=== PATIENT | male | born 1960 | race Hispanic/Latino ===

== ENCOUNTER 2018-10-01 08:11 | Inpatient (IN) | payer BC, OTHER ==
[~2018-10-01] VITALS: Ht 193 cm; Wt 95.3 kg
[~2018-10-01 08:11] MED LIST: ACTOS15 MG PO
--- OUTSIDE RECORDS SUMMARY | 2018-10-01 08:13 | XMS REPORT | Continuity of Care Document ---
Author Author [facility] Interface Address Unknown Phone Unavailable Problems Problem Status Onset Date Classification Date Reported Comments Source Acute upper respiratory infection 08/14/2016 Diagnosis 08/14/2016 [facility] Streptococcal sore throat 08/14/2016 Diagnosis 08/14/2016 [facility] Streptococcal Sore Throat Problem 08/14/2016 [facility] Acute Upper Respiratory Infection Problem 08/14/2016 [facility] Medications Medication Details Route Status Patient Instructions Ordering Provider Order Date Source Amoxicillin 875 MG Oral Tablet amoxicillin 875 mg tablet Take 1 tablet twice a day by oral route with meals for 10 days. Active [facility] Fluticasone propionate 0.05 MG/ACTUAT Metered Dose Nasal [place] fluticasone 50 mcg/actuation nasal spray,suspension Inhale 2 sprays to each nostrils once a day. Active [facility] benzonatate 100 MG Oral Capsule [Tessalon Perles] Tessalon Perles 100 mg capsule Take 1 capsule 3 times a day by oral route as needed for cough. Active [facility] Allergies, Adverse Reactions, Alerts Substance Category Reaction Severity Reaction type Status Date Reported Comments Source Immunizations Immunization Date Given Site Status Last Updated Comments Source influenza, seasonal, injectable 06/17/2016 completed [facility] Results Order Name Results Value Reference Range Date Interpretation Comments Source Influenza A negative 08/14/2016 [facility] Influenza B negative 08/14/2016 [facility] RESULT positive 08/14/2016 [facility] SWAB LOCATION Left and Right tonsillar pillars 08/14/2016 [facility] Vital Signs Vital Sign Value Date Comments Source Diastolic (mm Hg) 82 08/14/2016 [facility] Height 74 08/14/2016 [facility] Systolic (mm Hg) 118 08/14/2016 [facility] Weight 210 08/14/2016 [facility] Encounters Location Location Details Encounter Type Encounter Number Reason For Visit Attending Provider ADM Date DC Date Status Source [place] - [facility] - [id number] Ramos: [address] [place] [address], Ph. [id number] Asia Bernard 08/14/2016 [facility] [place] [facility] [id number] Asiasonya Wagner, [employer]: [address] [facility], [place] [address], Ph. [id number] Asia Wagner 08/14/2016 [facility] Procedures Procedure Code Date Perfomer Comments Source
--- OUTSIDE RECORDS SUMMARY | 2018-10-01 08:14 | XMS REPORT | Encounter Summary ---
Author Organization Unknown Address [address] [place] [address] Phone [phone] Reason for Visit Medical Complaint Instructions 1. Acute upper respiratory infection rapid flu (A+B) Tessalon Perles 100 mg capsule fluticasone 50 mcg/actuation nasal spray,suspension rapid strep group A, throat upper respiratory infection (cold): care instructions 2. Streptococcal sore throat amoxicillin 875 mg tablet strep throat: care instructions Discussion Note: None recorded. Plan of Care Patient Instructions Please drink plenty of fluids, rest, good hand washing, cover your mouth while coughing and sneezing. Try warm salt water gargles, throat lozanges, soups ortea with honey and/or lemon juice to soothe the throat.Take tylenol every 6 hours as needed for fever and aches. Change out yourtoothbrush tomorrow or when you start to feel better. Please read all the side effects of the medications, if you develop any side effects immediately stop the medication and please contact your PCP/UC/ER or [facility] or call 911. Follow up with PCP/UC/ER or seek care if symptomsget worseor no improvement in 3 to 4 days. Patient verbalizes understanding and agrees to the plan. Reminders Provider Appointments None recorded. Lab Rapid Flu (A+B) 08/14/2016 [facility] Rapid Strep Group a, Throat 08/14/2016 [facility] Referral None recorded. Procedures None recorded. Surgeries None recorded. Imaging None recorded. Medications Name Start Date amoxicillin 875 mg tablet Take 1 tablet twice a day by oral route with meals for 10 days. fluticasone 50 mcg/actuation nasal spray,suspension Inhale 2 sprays to each nostrils once a day. Tessalon Perles 100 mg capsule Take 1 capsule 3 times a day by oral route as needed for cough. Medications Administered None recorded. Vitals Height Weight BMI Blood Pressure 6 ft 2 in 210 lbs 27 118/82 Lab Results Date Name Result Description Value Range Status Rapid Flu (A+B) Influenza a negative Influenza B negative Rapid Strep Group a, Throat Result positive Swab Location Left and Right tonsillar pillars Allergies Name Reaction Severity Onset NKDA Problems Name Status Onset Date Source Streptococcal Sore Throat Active Encounter Acute Upper Respiratory Infection Active Encounter Procedures None recorded. Vaccine List Vaccine Type influenza, seasonal, injectable 06/16/2016 Social History Smoking Status Never Smoker Past Encounters 08/14/2016 Acute Upper Respiratory Infection; Streptococcal Sore Throat Asia Wagner, [facility]: [address] [place] [address], Ph. History of Present Illness [id number]-Hqttyhvvsa-Jnldnch Reported By: Patient HPI: Location: head/sinuses. Quality: sore throat, nasal/sinus congestion, dry cough. Duration: 3days. Severity: moderate. Onset/Timing: sudden. Context: no sick contacts, no foreign travel, non-smoker. Modifying factors: OTC medication. Associated Symptoms: no sputum production, no shortness of breath, no wheezing, no change in number of pillows needed to sleep at night, no sweats, no significant weight gain, no significant weight loss, no morning cough, no sore throat, no vomiting, no diarrhea, no rash, no nausea Notes: Pt also reports fever and body aches. Review of Systems Basic Reported By: Patient Constitutional: Constitutional: fever Eyes: Eyes: no eye complaints Zhfv-Mffa-Wghkd-Throat: Ears: no ear complaints. Nose: nose/sinus problems. Mouth/Throat: no bleeding gums, no mouth complaints, no teeth problems, sore throat Cardiovascular: Cardiovascular: no chest pain, no shortness of breath, no known heart murmur Respiratory: Respiratory: no wheezing, no shortness of breath, cough Gastrointestinal: Gastrointestinal: no abdominal pain, no vomiting / diarrhea Genitourinary: Genitourinary: no urinary complaints, no discharge Musculoskeletal: Musculoskeletal: no muscle weakness, no arthralgias/joint pain, no back pain, muscle aches Skin: Skin: no abnormal / changing mole, no jaundice, no rashes Neurologic: Neurologic: no loss of consciousness, no weakness, no numbness, no seizures, no dizziness, headache Physical Exam Adult Basic, Adult Male Complete Constitutional: General Appearance: healthy-appearing, well-nourished, well-developed. Level of Distress: NAD. Ambulation: ambulating normally Psychiatric: Mental Status: active and alert. Orientation: to time, to place, to person Eyes: Lids and Conjunctivae: non-injected, no discharge, no pallor. Pupils: PERRLA. EOM: EOMI. Lens: clear. Sclerae: non-icteric Khv-Yujp-Cnrqq-Throat: Ears: no lesions on external ear, no outer ear tenderness, EACs clear, TMs clear, TM mobility normal. Hearing: no hearing loss. Nose: no lesions on external nose, nares patent, no septal deviation, nasal passages clear, no sinus tenderness, nasal discharge--rhinorrhea, post nasal drip; RED SWOLLEN NASAL MUCOSA. Lips, Teeth, and Gums: no mouth or lip ulcers, no bleeding gums, normal dentition. Oropharynx: moist mucous membranes, erythema, exudates, tonsils enlarged 1+ Neck: Neck: supple. Lymph Nodes: no cervical LAD Lungs: Respiratory effort: no dyspnea, no tachypnea. Auscultation: breath sounds normal, good air movement Cardiovascular: Heart Auscultation: RRR, no murmurs Neurologic: Gait and Station: normal gait Skin: Inspection and palpation: no rash
--- OUTSIDE RECORDS SUMMARY | 2018-10-01 08:14 | XMS REPORT | Encounter Summary ---
Author Organization Unknown Address [address] [place] [address] Phone [phone] Reason for Visit Medical Complaint Instructions 1. [...] negative Rapid Strep Group a, Throat Result negative Swab Location Left and Right tonsillar pillars Allergies Name Reaction Severity Onset NKDA Problems Name Status Onset Date Source Streptococcal Sore Throat Active Encounter Acute Upper Respiratory Infection Active Encounter Procedures None recorded. Vaccine List Vaccine Type influenza, seasonal, injectable 06/16/2016 Social History Smoking Status Never Smoker Past Encounters 08/14/2016 Acute Upper Respiratory Infection; Streptococcal Sore Throat Asia Wagner, [facility]: [address] [place] [address], Ph. History of Present Illness Bcxtp-Xnrkfuxepk-Odjudvf Reported By: Patient HPI: Location: head/sinuses. Quality: [...] Constitutional: fever Eyes: Eyes: no eye complaints Wgsn-Igqg-Lltgn-Throat: Ears: no ear complaints. Nose: nose/sinus problems. [...] PERRLA. EOM: EOMI. Lens: clear. Sclerae: non-icteric Lnu-Yyem-Vrfxl-Throat: Ears: no lesions on external ear, no [...]
[2018-10-01 08:49] LABS: EOSINOPHILS # (AUTO) 0.1 (0.0-0.4); HEMATOCRIT 39.7 % (38.2-49.6); HEMOGLOBIN 12.6 g/dL (14.0-18.0); LYMPHOCYTES # (AUTO) 119.7 (1.0-3.2); LYMPHOCYTES % 95.2 % (18.0-39.1); MEAN CORPUSCULAR HEMOGLOBIN 32.7 pg (28-32); MEAN CORPUSCULAR HGB CONC 31.7 g/dL (31-35); MEAN CORPUSCULAR VOLUME 103.1 fL (81-99); MONOCYTES # (AUTO) 3.5 (0.2-0.8); MONOCYTES % 2.8 % (4.4-11.3); NEUTROPHILS # (AUTO) 2.3 (2.1-6.9); NEUTROPHILS % 1.9 % (38.7-80.0); PLATELET COUNT 200 x10e3/uL (140-360); RED BLOOD COUNT 3.85 x10e6/uL (4.3-5.7); RED CELL DISTRIBUTION WIDTH 14.8 % (11.7-14.4)
[2018-10-01 08:58] LABS: INR 0.91; PROTHROMBIN TIME 13.1 seconds (11.9-14.5)
[2018-10-01 08:59] LABS: PARTIAL THROMBOPLASTIN TIME 27.5 seconds (23.8-35.5)
--- NOTE | 2018-10-01 09:04 | Diagnostic Imaging Report ---
EXAMINATION: CHEST 2 VIEWS INDICATION: ^sob, cp ^[id number] ^[id number] ^N COMPARISON: Chest radiograph 04/04/2014 FINDINGS: PA and lateral views TUBES and LINES: None. LUNGS: Lungs are well inflated. Lungs are clear. There is no evidence of pneumonia or pulmonary edema. PLEURA: No pleural effusion or pneumothorax. HEART AND MEDIASTINUM: Mild enlargement of the cardiac silhouette. The mediastinum is otherwise unremarkable. BONES AND SOFT TISSUES: Intact median sternotomy wires. Mild multilevel degenerative changes of the thoracic spine. Soft tissues are unremarkable. UPPER ABDOMEN: No free air under the diaphragm. IMPRESSION: Mild cardiomegaly without pulmonary decompensation. Signed by: Dr. Concepción Yates M.D. on 10/01/2018 9:01 AM
[2018-10-01 09:06] LABS: ALANINE AMINOTRANSFERASE 26 IU/L (0-55); ALBUMIN 3.7 g/dL (3.5-5.0); ALKALINE PHOSPHATASE 66 IU/L (40-150); ANION GAP 12.1 mmol/L (8-16); BLOOD UREA NITROGEN 18 mg/dL (7-26); BUN/CREATININE RATIO 23 (6-25); CALCIUM 9.3 mg/dL (8.4-10.2); CARBON DIOXIDE 27 mmol/L (22-29); CHLORIDE 105 mmol/L (98-107); CREATINE KINASE 197 IU/L (30-200); CREATININE, SERUM 0.77 mg/dL (0.72-1.25); EST GLOMERULAR FILTRATION RATE > 60 ML/MIN (60-); GLUCOSE 199 mg/dL (74-118); POTASSIUM 4.1 mmol/L (3.5-5.1); SODIUM 140 mmol/L (136-145)
[2018-10-01 09:22] LABS: BLAST CELLS % MANUAL 86; LYMPHOCYTES % (MANUAL) 9 % (19-48); NEUTROPHILS % (MANUAL) 5 % (40-74)
[2018-10-01 09:23] LABS: PLATELET ESTIMATE ADEQUATE; PLATELET MORPHOLOGY COMMENT FEW LARGE; RBC MORPHOLOGY COMMENT NORMAL
--- NOTE | 2018-10-01 11:15 | NUR ---
REPORT AND PATIENT CARE ENDORSED TO AMBROSE BROOKE
[2018-10-01] MEDS ORDERED: ONDANSETRON HCL INJ 2MG/ML 2ML 2 MG/ML VIAL IV PRN (11:45)
[2018-10-01] MEDS ORDERED: MORPHINE SULFATE INJ 4 MG/ML INJ 1ML IV PRN (11:45)
[2018-10-01] MEDS ORDERED: NITROGLYCERIN 0.4 MG SUBL SL PRN (11:45)
--- OUTSIDE RECORDS SUMMARY | 2018-10-01 11:54 | XMS REPORT ---
Author Author [facility] Address Unknown Phone Unavailable Care Team Providers Care Top Flavor Attendant Name Role Phone Bonita YOUNG Unavailable Unavailable Problems This patient has no known problems. Allergies, Adverse Reactions, Alerts This patient has no known allergies or adverse reactions. Medications This patient has no known medications. Results Test Description Test Time Test Comments Text Results Atomic Results Result Comments CHEST 2 VIEWS 2018-10-01 09:00:00 [facility] [address] [address] Patient Name: GASPER UMANA MR #: [id number] : 1960 Age/Sex: 58/M Req #: [id number] Adm Physician: Ordered by: PRAKASH YOUNG MD Report #: [id number] Location: ER Room/Bed: Procedure: [id number] DX/CHEST 2 VIEWS Exam Date: 10/01/18 Exam Time: 0844 REPORT STATUS: Signed EXAMINATION: CHEST 2 VIEWS INDICATION: sob, cp [id number] N COMPARISON: Chest radiograph 04/04/2014 FINDINGS: PA and lateral views TUBES and LINES: None. LUNGS: Lungs are well inflated. Lungs are clear. There is no evidence of pneumonia or pulmonary edema. PLEURA: No pleural effusion or pneumothorax. HEART AND MEDIASTINUM: Mild enlargement of the cardiac silhouette. The mediastinum is otherwise unremarkable. BONES AND SOFT TISSUES: Intact median sternotomy wires. Mild multilevel degenerative changes of the thoracic spine. Soft tissues are unremarkable. UPPER ABDOMEN: No free air under the diaphragm. IMPRESSION: Mild cardiomegaly without pulmonary decompensation. Signed by: Dr. Jeannie Hoyt M.D. on 10/01/2018 9:01 AM Dictated By: JEANNIE HOYT MD 0 Transcribed By: NICOLE on 10/01/18900 COPY TO: PRAKASH YOUNG MD
[2018-10-01] MEDS: SODIUM CHLORIDE 0.9% 1000ML 1,000 ML IV SCH ×2 (12:00→21:21)
[2018-10-01] MEDS: FAMOTIDINE 20 MG TAB PO SCH (12:01)
[2018-10-01] MEDS: NITROGLYCERIN 2% OINT 1 GM PKT TOP SCH ×2 (12:01→18:00)
--- NOTE | 2018-10-01 12:02 | NUR ---
DR. YOUNG IN ROOM TO SPEAK WITH PT/LONNIE
[2018-10-01 17:40] LABS: CREATINE KINASE MB 3.5 ng/mL (0-5.0)
--- NOTE | 2018-10-01 18:41 | NUR ---
DR. Brian SOLOMON, WHO IS COVERING FOR DR. GRAMAJO; WAS CALLED TO REPORT LAB RESULTS RE 2ND ELEVATED TROPONIN--NO NEW ORDERS REC'D
--- NOTE | 2018-10-01 19:45 | NUR ---
PLACED AIR MATTRESS ON ER STRETCHER FOR PATIENT AND RECLINER FOR HIS BROUGHT TO ROOM
--- NOTE | 2018-10-01 21:39 | NUR ---
PT TX'D TO A HOSPITAL BED AT THIS TIME.
[2018-10-01] MEDS ORDERED: DEXTROSE 50% SYRINGE 50 ML IV PRN (22:30)
[2018-10-01] MEDS: INSULIN REGULAR, HUMAN 100 UNIT/1 ML 3ML VIAL SQ SCH (22:39)
[2018-10-02 01:18] LABS: CREATINE KINASE MB 2.4 ng/mL (0-5.0)
[2018-10-02] MEDS: FAMOTIDINE 20 MG TAB PO SCH ×3 (01:32→23:45)
[2018-10-02] MEDS: NITROGLYCERIN 2% OINT 1 GM PKT TOP SCH ×4 (01:32→19:38)
[2018-10-02] MEDS ORDERED: NOVOLOG100 UNIT/1 SQ (05:38)
[2018-10-02] MEDS ORDERED: LEVEMIR100 UNIT/1 SQ (05:38)
[2018-10-02 06:08] LABS: BASOPHILS # (AUTO) 0.1 (0.0-0.1); BASOPHILS % 0.1 % (0.0-1.0); HEMATOCRIT 35.9 % (38.2-49.6); HEMOGLOBIN 11.5 g/dL (14.0-18.0); LYMPHOCYTES # (AUTO) 98.4 (1.0-3.2); MEAN CORPUSCULAR VOLUME 102.9 fL (81-99); MONOCYTES # (AUTO) 4.1 (0.2-0.8); MONOCYTES % 3.9 % (4.4-11.3); NEUTROPHILS % 1.9 % (38.7-80.0); PLATELET COUNT 176 x10e3/uL (140-360); RED BLOOD COUNT 3.49 x10e6/uL (4.3-5.7); RED CELL DISTRIBUTION WIDTH 14.8 % (11.7-14.4)
[2018-10-02 06:26] LABS: CREATINE KINASE MB 2.1 ng/mL (0-5.0)
[2018-10-02 06:43] LABS: BLOOD UREA NITROGEN 17 mg/dL (7-26); BUN/CREATININE RATIO 24 (6-25); CALCIUM 8.3 mg/dL (8.4-10.2); CARBON DIOXIDE 25 mmol/L (22-29); CHLORIDE 108 mmol/L (98-107); CHOL/HDL RATIO 6.1 (3.9-4.7); CHOLESTEROL 189 MD/DL (0-199); CREATININE, SERUM 0.71 mg/dL (0.72-1.25); EST GLOMERULAR FILTRATION RATE > 60 ML/MIN (60-); GLUCOSE 135 mg/dL (74-118); HDL CHOLESTEROL 31 MG/DL (40-60); LDL CHOLESTEROL 134 MG/DL (60-130); SODIUM 141 mmol/L (136-145); TRIGLYCERIDES 118 MG/DL (0-149)
--- NOTE | 2018-10-02 07:15 | NUR ---
RECEIVED REPORT FROM SANG[facility] NURSE.
[2018-10-02 07:44] LABS: LYMPHOCYTES % (MANUAL) 91 % (19-48); MONOCYTES % (MANUAL) 2 % (3.4-9.0); NEUTROPHILS % (MANUAL) 5 % (40-74); RBC MORPHOLOGY COMMENT NORMAL; SMUDGE CELLS MODERATE
[2018-10-02 07:45] LABS: ANISOCYTOSIS SLIGHT; PLATELET ESTIMATE ADEQUATE; PLATELET MORPHOLOGY COMMENT NORMAL
--- NOTE | 2018-10-02 08:30 | NUR ---
BREAKFAST TRAY AT BEDSIDE. ECHOCARDIOGRAM BEING DONE AT THIS TIME.
[2018-10-02] MEDS: INSULIN LISPRO 100 UNIT/1 ML 3ML VIAL SQ SCH ×3 (08:47→16:30)
[2018-10-02] MEDS: ASPIRIN 81 MG ENTERIC COATED PO SCH (08:47)
--- NOTE | 2018-10-02 09:25 | History and Physical ---
PRIMARY CARE PHYSICIAN: Dr. Mckeon FIELD AIDE: Dr. Chung SOFTWARE MAINTENANCE ENGINEER: Dr. Bellamy CHIEF COMPLAINT: Blurred vision. HISTORY OF PRESENT ILLNESS: This is a 58-year-old man with a history of coronary artery disease with a bypass in 2013. Also, with vitreous hemorrhage diagnosed in 2017 related to his diabetes. Has continued to have poorly controlled diabetes. Not on a diabetic diet at home. Now, developing worsening vision changes with worsened blurred vision. He has chronic blurred vision and follows up with ophthalmology, Dr. Bellamy. The last time about 3 months ago. The patient does understand the importance of a diabetic diet, but has not been on it. States that he is not able to do a diabetic diet. The patient had chest discomfort about a week ago with some shortness of breath, but has since resolved. Here was found to have a troponin in the 0.5 range. He is admitted for further evaluation and management. PAST MEDICAL HISTORY: Coronary artery disease, status post coronary artery bypass grafting in 2013, diabetic foot ulcer, status post right great toe partial amputation, vitreous hemorrhage in 2017 secondary to uncontrolled diabetes, peripheral arterial disease, CLL, hyperlipidemia. PAST SURGICAL HISTORY: Partial right great toe amputation, coronary artery bypass grafting times 5 in 2013. ALLERGIES: PER ELECTRONIC MEDICAL RECORD. FAMILY/SOCIAL HISTORY: Patient is . No alcohol, illicits or cigarettes. MEDICATIONS: Per electronic medical record. REVIEW OF SYSTEMS: Denies any dizziness. Denies any fever, chills, sweats, nausea, vomiting, diarrhea, headache, chest pain, shortness of breath, back pain. PHYSICAL EXAMINATION VITAL SIGNS: Have been reviewed. GENERAL: A tired-appearing man resting in bed. HEENT: Anicteric. He has blurred vision. CARDIOVASCULAR: Normal S1 and S2. LUNGS: He has moderate breath sounds. ABDOMEN: Soft, nontender and nondistended. EXTREMITIES: He has right great toe partial amputated, well-healed. SKIN: Dry. PSYCHIATRIC: Flat affect. NEUROLOGICAL: Alert and oriented times 3. Moves all extremities. MUSCULOSKELETAL: He has a midchest wall scar. LABS: Reviewed. MEDICATIONS: Reviewed. ASSESSMENT: This is a 58-year-old man with: 1. Blurred vision secondary to vitreous hemorrhage. 2. Left-sided vitreous hemorrhage. 3. Uncontrolled diabetes mellitus: Hemoglobin A1c is 9.4. 4. Hyperlipidemia. 5. Hypertensive heart disease with cardiomegaly. 6. Coronary artery disease with history of coronary artery bypass grafting. 7. Peripheral arterial disease. 8. Chronic lymphocytic leukemia. 9. Elevated troponin. PLAN 1. I have encouraged the patient the need for strict diabetic diet. I have encouraged this with his family member at bedside. Currently, not on a diabetic diet. Will start a diabetic diet here. 2. He needs to see his contract designer SHAHBAZ, which he has agreed to. 3. Control diabetes while he is here. 4. He has elevated troponin at 0.5 range, now trending down to 0.47. Unlikely, this is acute coronary syndrome. Will defer to cardiology. Echocardiogram has been ordered. 5. Treat hyperlipidemia with high dose of statin. 6. Defer CLL management to hematology. There is no sign of infection at this time. 7. Prophylaxis. Will avoid anticoagulation in the setting of vitreous hemorrhage. Will treat with Pepcid prophylactically. 8. Disposition. Follow up cardiology recommendations. Follow up echocardiogram. The patient needs to see ophthalmology SHAHBAZ once he is discharged. Job#: [id number] EARNESTINE
[2018-10-02] MEDS: SODIUM CHLORIDE 0.9% 1000ML 1,000 ML IV SCH ×2 (10:30→17:45)
--- NOTE | 2018-10-02 12:18 | NUR ---
LUNCH TRAY AT BEDSIDE. PT REPOSITIONED FOR COMFORT. AT BEDSIDE HELPING PT WITH NEEDS WELL.
[2018-10-02] MEDS: INSULIN REGULAR, HUMAN 100 UNIT/1 ML 3ML VIAL SQ SCH (13:10)
--- NOTE | 2018-10-02 15:10 | Consultation ---
DATE OF CONSULTATION: October 02, 2018 CARDIOLOGY CONSULTATION REASON FOR CONSULTATION: Elevated troponin. HISTORY OF PRESENT ILLNESS: This is a 58-year-old man with a history of hypertension, hyperlipidemia, diabetes mellitus, peripheral arterial disease, coronary artery disease, status post coronary artery bypass graft surgery, CLL, hyperlipidemia, who presented to the emergency department with blurry vision. The patient has a history of vitreous hemorrhage related to his diabetes, and was scheduled to see his antisqueak applier today. However, over the weekend his vision became worse. 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 Denies any current chest pain, pressure, shortness of breath, or palpitations. He actually feels fine. Denies any ongoing cardiovascular symptoms. On arrival here, the patient was found to have a minimally elevated troponin. We have been asked to evaluate the patient for his ongoing cardiovascular care. REVIEW OF SYSTEMS: A 12-point review of systems was conducted and is negative otherwise than stated above in the HPI. PAST MEDICAL HISTORY: Hypertension, hyperlipidemia, diabetes mellitus, peripheral arterial disease, coronary artery disease. PAST SURGICAL HISTORY: Digit amputations, coronary artery bypass graft surgery. FAMILY HISTORY: No premature coronary artery disease or sudden cardiac . SOCIAL HISTORY: No illicit drug use, alcohol use or tobacco use. ALLERGIES: NO KNOWN DRUG ALLERGIES. MEDICATIONS: See medication reconciliation form. PHYSICAL EXAMINATION VITALS: Temperature is 97.9, heart rate is 70, respirations are 16, blood pressure is 149/82, oxygen saturation 100% on room air. GENERAL: A well-appearing, well-built man lying comfortably in bed. HEENT: Head is normocephalic and atraumatic. Eyes: Extraocular muscles are intact. Conjunctivae are clear. NECK: No JVD. No bruits. CARDIOVASCULAR: Regular rate and rhythm. No murmurs. LUNGS: Clear to auscultation. ABDOMEN: Soft, nontender and nondistended. Normoactive bowel sounds. EXTREMITIES: No clubbing, cyanosis or edema. VASCULAR: Two plus pulses. SKIN: Warm, dry and intact. NEUROLOGIC: No focal deficits noted. Cranial nerves grossly intact. PSYCHIATRIC: Normal mood and affect. LABORATORY DATA: White blood cell count is 104,000, hemoglobin is 11.5, and platelets 176,000. Creatinine is 0.7. CK-MB is 5.1, 3.5, 2.4, 2.1. Troponin I 0.562, 0.598, 0.574, 0.47. Chest x-ray shows mild cardiomegaly. No congestion. IMPRESSION 1. Abnormal cardiac biomarkers. 2. Coronary artery disease: Status post coronary artery bypass graft surgery. 3. Hypertension. 4. Hyperlipidemia. 5. Diabetes mellitus. 6. Vitreous hemorrhage. 7. Peripheral arterial disease. 8. Chronic lympholytic leukemia. RECOMMENDATIONS: The patient has no ongoing chest pain or pressure. He has trivially elevated troponin levels likely not related to acute coronary syndrome. Echocardiogram showed a left ventricular ejection fraction of 50% to 55%. Discussed treatment options with the patient and his at bedside at length. If the patient should undergo cardiac catheterization and possibly need a stent, we would need to put him on antiplatelets, which would then therefore complicate and worsen his vitreous hemorrhage. I will go ahead and schedule him for a stress test to look for any evidence of ischemia. This is also being done due to his upcoming surgery, and will likely need cardiac clearance. Otherwise, continue all current cardiovascular medications. Job#: [id number] EARNESTINE
--- NOTE | 2018-10-02 15:35 | NUR ---
PT TO [facility] FOR STRESS TEST.
[2018-10-02] MEDS ORDERED: REGADENOSON 0.4 MG/5 ML SYR IV ONE (16:09)
--- NOTE | 2018-10-02 18:15 | NUR ---
RECEIVED PATIENT FROM THE ER HE ARRIVED IN STRETCHER, ACCOMPANIED BY ER NURSE HE IS ALERT AND ORIENTEDX3, SKIN ASSESSED PATIENT HAS GENERALIZED DRYNESS AND SCALY SKIN SCATTERED SCABS. PATIENT RIGHT FOOT PARTIAL GREAT TOE AMPUTATION, HAS OLD SURGICAL MILLINE TO CHEST R/T HEART BYPASS PATIENT REPORTS SURGERY WAS IN 2013. PLACED ON TELEMETRY, BLOOD SUGAR CHECKED UPON ARRIVAL 114. DENIES PAIN, ORIENTED TO ROOM AND USE OF CALL LIGHT. BED IN LOW POSITION, BREAKS ON. AT BEDSIDE WILL CONTINUE TO MONITOR.
--- NOTE | 2018-10-02 20:33 | NUR ---
Received change of shift report from AM nurse. Walking rounds completed.
[2018-10-02] MEDS: INSULIN DETEMIR 100 UNIT/ML PEN SQ SCH (21:00)
[2018-10-02] MEDS ORDERED: NON-FORMULARY MEDICATION (Insulin Detemir (Levemir) 15 UNITS) SQ SCH (21:00)
[2018-10-02 21:45] VITALS: BP 163/79
[2018-10-03 00:21] VITALS: BP 131/70
[2018-10-03] MEDS: SODIUM CHLORIDE 0.9% 1000ML 1,000 ML IV SCH ×3 (03:41→23:45)
--- NOTE | 2018-10-03 03:55 | NUR ---
Patient resting quitly at this time. Family at bedside. Patient denies pain or discomfort at this time.
[2018-10-03 04:00] VITALS: BP 140/82
[2018-10-03] MEDS: NITROGLYCERIN 2% OINT 1 GM PKT TOP SCH ×5 (05:07→23:20)
--- NOTE | 2018-10-03 06:48 | NUR ---
IM- progress note O/N; no events REVIEW OF SYSTEMS: Denies any dizziness. Denies any fever, chills, sweats, nausea, vomiting, diarrhea, headache, chest pain, shortness of breath, back pain. PHYSICAL EXAMINATION VITAL SIGNS: Have been reviewed. GENERAL: A tired-appearing man resting in bed. HEENT: Anicteric. He has blurred vision. CARDIOVASCULAR: Normal S1 and S2. LUNGS: He has moderate breath sounds. ABDOMEN: Soft, nontender and nondistended. EXTREMITIES: He has right great toe partial amputated, well-healed. SKIN: Dry. PSYCHIATRIC: Flat affect. NEUROLOGICAL: Alert and oriented times 3. Moves all extremities. MUSCULOSKELETAL: He has a midchest wall scar. LABS: Reviewed. MEDICATIONS: Reviewed. ASSESSMENT: This is a 58-year-old man with: 1. Blurred vision secondary to vitreous hemorrhage. 2. Left-sided vitreous hemorrhage. 3. Uncontrolled diabetes mellitus: Hemoglobin A1c is 9.4. 4. Hyperlipidemia. 5. Hypertensive heart disease with cardiomegaly. 6. Coronary artery disease with history of coronary artery bypass grafting. 7. Peripheral arterial disease. 8. Chronic lymphocytic leukemia. 9. Elevated troponin. PLAN 1. I have encouraged the patient the need for strict diabetic diet. I have encouraged this with his family member at bedside. Currently, not on a diabetic diet. Will start a diabetic diet here. 2. He needs to see his green prize packer SHAHBAZ, which he has agreed to. 3. Control diabetes while he is here. 4. He has elevated troponin at 0.5 range, now trending down to 0.47. Unlikely, this is acute coronary syndrome. Will defer to cardiology. Echocardiogram has been ordered. 5. Treat hyperlipidemia with high dose of statin. 6. Defer CLL management to hematology. There is no sign of infection at this time. 7. Prophylaxis. Will avoid anticoagulation in the setting of vitreous hemorrhage. Will treat with Pepcid prophylactically. 8. Disposition. Follow up cardiology recommendations. Follow up echocardiogram. The patient needs to see ophthalmology SHAHBAZ once he is discharged. 10/03 stress test pending; LVEF normal on echo; d/c if stress negative Grant Orozco MD, PhD.
[2018-10-03] MEDS ORDERED: LIPITOR20 MG PO (06:49)
[2018-10-03] MEDS ORDERED: FAMOTIDINE20 MG PO (06:49)
[2018-10-03] MEDS: INSULIN LISPRO 100 UNIT/1 ML 3ML VIAL SQ SCH ×3 (07:17→16:30)
[2018-10-03 08:00] VITALS: BP 167/80
--- NOTE | 2018-10-03 10:00 | NUR ---
PT TAKEN FOR STRESS TEST AT THIS TIME
--- NOTE | 2018-10-03 11:00 | NUR ---
SPOKE WITH STATES HE WILL SEE PATIENT RESULTS WHEN READY AND NOTIFY THIS RN WHEN PATIENT CAN GO HOME
[2018-10-03 12:58] VITALS: BP 156/90
[2018-10-03] MEDS: ASPIRIN 81 MG ENTERIC COATED PO SCH (12:58)
[2018-10-03] MEDS: FAMOTIDINE 20 MG TAB PO SCH ×2 (12:58→23:20)
[2018-10-03 16:00] VITALS: BP 172/85
--- NOTE | 2018-10-03 18:01 | NUR ---
SPOKE WITH PT TO BE SEEN BY OPHTHALMOLOGY FOR VITREOUS HEMORRHAGE AND FOR CLEARANCE OF POSSIBLE USE OF BLOOD THINNERS. PAGED FOR CONSULT
--- NOTE | 2018-10-03 19:23 | NUR ---
Received change of shift report from AM nurse. Walking rounds completed.
--- NOTE | 2018-10-03 19:27 | NUR ---
Received change of shift report from AM nurse. Walking rounds completed.
[2018-10-03 20:00] VITALS: BP 152/95
--- NOTE | 2018-10-03 20:27 | NUR ---
Patient in bed in supine position. Denies pain at this time. IV intact right FA 18G. RA No c/o at this time. SR x2 bed lowest level.
[2018-10-03] MEDS: INSULIN DETEMIR 100 UNIT/ML PEN SQ SCH (21:00)
[2018-10-04] VITALS: BP 140/85
[2018-10-04] MEDS: NITROGLYCERIN 2% OINT 1 GM PKT TOP SCH ×3 (06:00→17:53)
--- NOTE | 2018-10-04 07:17 | NUR ---
IM- progress note O/N; no events REVIEW OF SYSTEMS: Denies any dizziness. Denies any fever, chills, sweats, nausea, vomiting, diarrhea, headache, chest pain, shortness of breath, back pain. PHYSICAL EXAMINATION VITAL SIGNS: Have been reviewed. GENERAL: A tired-appearing man resting in bed. HEENT: Anicteric. He has blurred vision. CARDIOVASCULAR: Normal S1 and S2. LUNGS: He has moderate breath sounds. ABDOMEN: Soft, nontender and nondistended. EXTREMITIES: He has right great toe partial amputated, well-healed. SKIN: Dry. PSYCHIATRIC: Flat affect. NEUROLOGICAL: Alert and oriented times 3. Moves all extremities. MUSCULOSKELETAL: He has a midchest wall scar. LABS: Reviewed. MEDICATIONS: Reviewed. ASSESSMENT: This is a 58-year-old man with: 1. Blurred vision secondary to vitreous hemorrhage. 2. Left-sided vitreous hemorrhage. 3. Uncontrolled diabetes mellitus: Hemoglobin A1c is 9.4. 4. Hyperlipidemia. 5. Hypertensive heart disease with cardiomegaly. 6. Coronary artery disease with history of coronary artery bypass grafting. 7. Peripheral arterial disease. 8. Chronic lymphocytic leukemia. 9. Elevated troponin. PLAN 1. I have encouraged the patient the need for strict diabetic diet. I have encouraged this with his family member at bedside. Currently, not on a diabetic diet. Will start a diabetic diet here. 2. He needs to see his manager pipeline SHAHBAZ, which he has agreed to. 3. Control diabetes while he is here. 4. He has elevated troponin at 0.5 range, now trending down to 0.47. Unlikely, this is acute coronary syndrome. Will defer to cardiology. Echocardiogram has been ordered. 5. Treat hyperlipidemia with high dose of statin. 6. Defer CLL management to hematology. There is no sign of infection at this time. 7. Prophylaxis. Will avoid anticoagulation in the setting of vitreous hemorrhage. Will treat with Pepcid prophylactically. 8. Disposition. Follow up cardiology recommendations. Follow up echocardiogram. The patient needs to see ophthalmology SHAHBAZ once he is discharged. 10/03 stress test pending; LVEF normal on echo; d/c if stress negative 10/04 stress indicative of disease. Ophthalmology to do pre-op to determine if antiplatelets can be utilized in setting of vitreous hemorrhage. If yes, plan is to proceed with [facility] and possible intervention. Grant Orozco MD, PhD.
[2018-10-04 08:14] VITALS: BP 148/86
[2018-10-04 08:30] VITALS: BP 148/86
--- NOTE | 2018-10-04 08:30 | NUR ---
consult called to Dr. Rosales office, spoke to Dia
[2018-10-04] MEDS: ASPIRIN 81 MG ENTERIC COATED PO SCH (08:49)
[2018-10-04] MEDS: INSULIN LISPRO 100 UNIT/1 ML 3ML VIAL SQ SCH ×3 (08:50→16:30)
[2018-10-04] MEDS: SODIUM CHLORIDE 0.9% 1000ML 1,000 ML IV SCH (09:45)
[2018-10-04] MEDS: FAMOTIDINE 20 MG TAB PO SCH ×2 (11:45→23:04)
[2018-10-04 11:55] VITALS: BP 162/88
[2018-10-04 16:25] VITALS: BP 147/86
[2018-10-04] MEDS ORDERED: MIDAZOLAM HCL 2 MG/2 ML VIAL ONE (17:07)
[2018-10-04] MEDS ORDERED: FENTANYL CITRATE/PF 100MCG/2 ML INJ ONE (17:07)
[2018-10-04] MEDS ORDERED: LIDOCAINE HCL 2% LOCAL 20 ML VIAL ONE (17:07)
[2018-10-04] MEDS ORDERED: HEPARIN SOD/SOD CHLORIDE 2,000 ML ONE (17:08)
[2018-10-04] MEDS ORDERED: IOPAMIDOL 370 MG/ML 200 ML INFUS..BTL INJ ONE ×3 (17:08→19:32)
--- NOTE | 2018-10-04 17:55 | NUR ---
patient off unit to solder making laborer
[2018-10-04] MEDS ORDERED: HYDRALAZINE HCL 20 MG/ML VIAL ONE (20:10)
[2018-10-04] MEDS ORDERED: ASPIRIN 325 MG TAB ONE (20:37)
[2018-10-04] MEDS ORDERED: TICAGRELOR 90 MG TABLET ONE (20:37)
[2018-10-04 21:11] VITALS: BP 162/82
--- NOTE | 2018-10-04 21:12 | NUR ---
patient transferred from pacu around 20:45 awake, still look drowsy, vitals checked, iv fluid still running. no noted any bleeding to right groin, no distress noted, family on bed side, will continue to monitor.
--- NOTE | 2018-10-04 21:13 | NUR ---
per reports from pacu patient need to stay flat until 00:30.
[2018-10-04] MEDS ORDERED: SODIUM CHLORIDE 0.9% 1000ML 750 ML IV ONE (21:15)
--- NOTE | 2018-10-04 21:36 | Progress Note ---
DATE: October 04, 2018 SUBJECTIVE: Patient feels overall better. Vision improved. No chest pain, shortness of breath. Underwent successful percutaneous coronary intervention of the obtuse marginal vessel due to an occluded saphenous vein graft and an abnormal stress test. OBJECTIVE: VITAL SIGNS: Temperature is 98.9, heart rate 67, respirations are 19, blood pressure is 147/86, oxygen saturation is 97% on room air. GENERAL: Well-appearing, in no apparent distress. CARDIOVASCULAR: Regular rate and rhythm. LUNGS: Clear to auscultation. ABDOMEN: Soft, nontender. NEUROLOGIC: No focal deficits noted. CARDIOVASCULAR MEDICATIONS: Reviewed. LABORATORY DATA: Reviewed. Telemetry monitoring revealed normal sinus rhythm. Coronary angiography today revealed a patent saphenous vein graft to the RCA, 2 patent saphenous vein grafts to a large diagonal system, and a patent left internal mammary artery graft to the LAD. Patient had an occluded saphenous vein graft to the obtuse marginal, which correlated with the abnormal stress test. He underwent successful percutaneous coronary intervention of his venetie obtuse marginal vessel. IMPRESSION: 1. Coronary artery disease, status post percutaneous coronary intervention of the obtuse marginal vessel and prior coronary artery bypass graft surgery. 2. Abnormal stress test showing inferolateral ischemia. 3. Vitreous hemorrhage. 4. Hyperlipidemia. RECOMMENDATIONS: Patient underwent successful percutaneous coronary intervention of the obtuse marginal vessel. Continue dual antiplatelet therapy, statins, and beta blockers. Discussed the case with his primary apparel trimmings sales representative who agreed to proceed with cardiac catheterization and was not concerned with the dual antiplatelet regimen as he will be treated for his vitreous hemorrhage as an outpatient. Job#: [id number]
[2018-10-04] MEDS: INSULIN DETEMIR 100 UNIT/ML PEN SQ SCH (22:55)
[2018-10-05 00:15] VITALS: BP 122/64
[2018-10-05 00:17] VITALS: BP 122/64
[2018-10-05] MEDS ORDERED: SODIUM CHLORIDE 0.9% 1000ML 1,000 ML ONE (00:32)
--- NOTE | 2018-10-05 01:12 | NUR ---
Received report from nurse. Walking rounds completed.
[2018-10-05 04:00] VITALS: BP 140/78
--- NOTE | 2018-10-05 05:03 | NUR ---
Patient resting quitly. Right groin dry, intact with no noted hematoma. Continue monitor.
[2018-10-05] MEDS: NITROGLYCERIN 2% OINT 1 GM PKT TOP SCH ×2 (05:29)
[2018-10-05] MEDS ORDERED: BRILINTA90 MG PO (06:15)
[2018-10-05] MEDS ORDERED: ASPIRIN EC81 MG PO (06:15)
[2018-10-05 06:34] LABS: HEMATOCRIT 37.9 % (38.2-49.6); HEMOGLOBIN 11.7 g/dL (14.0-18.0); LYMPHOCYTES # (AUTO) 113.8 (1.0-3.2); LYMPHOCYTES % 93.6 % (18.0-39.1); MEAN CORPUSCULAR HEMOGLOBIN 32.1 pg (28-32); MEAN CORPUSCULAR HGB CONC 30.9 g/dL (31-35); MEAN CORPUSCULAR VOLUME 104.1 fL (81-99); MONOCYTES # (AUTO) 5.6 (0.2-0.8); MONOCYTES % 4.6 % (4.4-11.3); NEUTROPHILS # (AUTO) 2.1 (2.1-6.9); NEUTROPHILS % 1.7 % (38.7-80.0); PLATELET COUNT 190 x10e3/uL (140-360); RED BLOOD COUNT 3.64 x10e6/uL (4.3-5.7)
--- NOTE | 2018-10-05 06:37 | NUR ---
DIscharge summary Principal dx: ASSESSMENT: This is a 58-year-old man with: 1. Blurred vision secondary to vitreous hemorrhage. 2. Left-sided vitreous hemorrhage. 3. Uncontrolled diabetes mellitus: Hemoglobin A1c is 9.4. 4. Hyperlipidemia. 5. Hypertensive heart disease with cardiomegaly. 6. Coronary artery disease with history of coronary artery bypass grafting. 7. Peripheral arterial disease. 8. Chronic lymphocytic leukemia. 9. Elevated troponin. 10.CAD with Obtuse marginal disease s/p PCI Secondary dx: 1.HLD cc and hpi: refer to &p Hospital course: ASSESSMENT: This is a 58-year-old man with: 1. Blurred vision secondary to vitreous hemorrhage. 2. Left-sided vitreous hemorrhage. 3. Uncontrolled diabetes mellitus: Hemoglobin A1c is 9.4. 4. Hyperlipidemia. 5. Hypertensive heart disease with cardiomegaly. 6. Coronary artery disease with history of coronary artery bypass grafting. 7. Peripheral arterial disease. 8. Chronic lymphocytic leukemia. 9. Elevated troponin. PLAN 1. I have encouraged the patient the need for strict diabetic diet. I have encouraged this with his family member at bedside. Currently, not on a diabetic diet. Will start a diabetic diet here. 2. He needs to see his solid waste facility supervisor SHAHBAZ, which he has agreed to. 3. Control diabetes while he is here. 4. He has elevated troponin at 0.5 range, now trending down to 0.47. Unlikely, this is acute coronary syndrome. Will defer to cardiology. Echocardiogram has been ordered. 5. Treat hyperlipidemia with high dose of statin. 6. Defer CLL management to hematology. There is no sign of infection at this time. 7. Prophylaxis. Will avoid anticoagulation in the setting of vitreous hemorrhage. Will treat with Pepcid prophylactically. 8. Disposition. Follow up cardiology recommendations. Follow up echocardiogram. The patient needs to see ophthalmology SHAHBAZ once he is discharged. 10/03 stress test pending; LVEF normal on echo; d/c if stress negative 10/04 stress indicative of disease. Ophthalmology to do pre-op to determine if antiplatelets can be utilized in setting of vitreous hemorrhage. If yes, plan is to proceed with [facility] and possible intervention. Cleared by ophthalmology; s/p PCI to Obtuse marginal a. stable; no cp; no complication; check labs; d/c if ok; Will need ophthalmology f/u d/c time>35mins d/c location: home d/c condition: stable and improving d/c meds; see MAR F/u pcp 1 week and cardiology 2 weeks and ophthalmology 1 week. Grant Orozco MD, PhD.
--- NOTE | 2018-10-05 06:46 | NUR ---
Dr Orozco on the floor to see patient.
[2018-10-05 06:56] LABS: ANION GAP 10.9 mmol/L (8-16); BLOOD UREA NITROGEN 19 mg/dL (7-26); BUN/CREATININE RATIO 23 (6-25); CALCIUM 8.8 mg/dL (8.4-10.2); CARBON DIOXIDE 25 mmol/L (22-29); CHLORIDE 105 mmol/L (98-107); CREATININE, SERUM 0.83 mg/dL (0.72-1.25); EST GLOMERULAR FILTRATION RATE > 60 ML/MIN (60-); GLUCOSE 139 mg/dL (74-118); POTASSIUM 3.9 mmol/L (3.5-5.1); SODIUM 137 mmol/L (136-145)
--- NOTE | 2018-10-05 07:31 | NUR ---
Call placed to Dr. Orozco to report labs for today. Okay to discharge once cleared by Dr. Roberts. Attempted to call Dr. Roberts, per answering service, nobody is state federal relations deputy director.
[2018-10-05 08:00] VITALS: BP 149/76
[2018-10-05] MEDS: INSULIN LISPRO 100 UNIT/1 ML 3ML VIAL SQ SCH (08:00)
[2018-10-05] MEDS: ASPIRIN 81 MG ENTERIC COATED PO SCH (08:53)
[2018-10-05] MEDS ORDERED: TICAGRELOR 90 MG TABLET PO SCH (09:00)
--- NOTE | 2018-10-05 09:14 | NUR ---
Call placed to Dr Roberts regarding d/c order.
[2018-10-05 09:41] LABS: BLAST CELLS % MANUAL 1; LYMPHOCYTES % (MANUAL) 92 % (19-48); MONOCYTES % (MANUAL) 2 % (3.4-9.0); NEUTROPHILS % (MANUAL) 1 % (40-74)
[2018-10-05 09:42] LABS: ANISOCYTOSIS SLIGHT; PLATELET ESTIMATE ADEQUATE; PLATELET MORPHOLOGY COMMENT NORMAL; RBC MORPHOLOGY COMMENT NORMAL
[2018-10-05 09:43] LABS: SMUDGE CELLS MANY
--- NOTE | 2018-10-05 12:10 | NUR ---
Discharge instructions given to patient along with prescriptions. Handouts given regarding post-insertion site care. Pt verbalizes understanding. IV removed with tip intact; dressing applied.
--- NOTE | 2018-10-05 13:17 | NUR ---
Pt escorted to personal vehicle via wheelchair with all personal belongings including discharge folder. Pt in stable condition.
--- NOTE | 2018-10-05 15:20 | Progress Note ---
DATE: October 05, 2018 CARDIOLOGY PROGRESS NOTE: SUBJECTIVE: Patient feels well. Denies any chest pain or shortness of breath. OBJECTIVE VITAL SIGNS: Temperature 97.8, heart rate is 74, respirations are 17. Blood pressure is 149/76. Oxygen saturation 99% on room air. GENERAL: Well-appearing well-built and in no apparent distress. CARDIOVASCULAR: Regular rate and rhythm. LUNGS: Clear to auscultation. ABDOMEN: Soft and nontender. GROIN SITE: Appears okay with no groin hematoma or bruising. VASCULAR: 2+ pulses. CARDIOVASCULAR MEDICATIONS: Reviewed. LABORATORY DATA: Reviewed. Telemetry monitoring showed normal sinus rhythm. IMPRESSION: 1. Coronary artery disease, status post percutaneous coronary intervention of the obtuse marginal vessel and prior coronary artery bypass graft surgery. 1. Abnormal stress test showing inferolateral ischemia. 2. Vitreous hemorrhage. 3. Hyperlipidemia. 4. Hypertension. PLAN: The patient is feeling well status post percutaneous coronary intervention. Continue current cardiovascular medications and dual antiplatelet therapy. Resume statin medications and beta blockers. The patient is stable for discharge. Job#: [id number]
--- NOTE | 2018-10-12 17:51 | Operative Report ---
DATE OF PROCEDURE: October 04, 2018 PROCEDURES PERFORMED 1. Selective coronary angiography times 2. 2. Selective graft angiography times 4. 3. Percutaneous transluminal coronary angioplasty and drug-eluting stent placement to the first obtuse marginal vessel. PREOPERATIVE DIAGNOSES 1. Abnormal stress test showing inferolateral ischemia. 2. Coronary artery disease, status post prior coronary artery bypass graft surgery. POSTOPERATIVE DIAGNOSES 1. Abnormal stress test showing inferolateral ischemia. 2. Coronary artery disease, status post prior coronary artery bypass graft surgery. ESTIMATED BLOOD LOSS: Less than 20 mL. SPECIMENS REMOVED: None. PROCEDURE DETAIL: After informed consent was obtained, the patient was brought to the cardiac catheterization laboratory in the fasting, nonsedated state. Bilateral groins were prepped and draped in the usual sterile fashion. Two percent lidocaine was infiltrated over the right anterior groin for anesthesia. Using the micropuncture needle, the right common femoral artery was successfully entered via Seldinger technique. A 5-Argentine sheath was placed. Diagnostic coronary angiography was performed using a JL4 and 3DRC catheters. The same 3DRC catheter was used to selectively engage 3 saphenous vein grafts and the left internal mammary artery. Diagnostic angiography was performed. Angiographic images revealed an occluded saphenous vein graft likely that was anastomosed to the 1st obtuse marginal vessel. The lower [place] vessel had severe subtotal 99% and 90% lesions. A decision was made to perform percutaneous coronary intervention of the lower [place] OM. The patient received systemic heparin for therapeutic anticoagulation. The left main was then cannulated with a 6-Argentine XP 3.5 guide catheter. The lesion was crossed with a Luge wire and then predilated with a 2-mm balloon. The distal portion of the OM was stented with a 2.25 x 20 Synergy drug-eluting stent. Next, the midportion of the vessel was stented in overlapping fashion with a 2.5 x 20 Synergy drug-eluting stent. Next, the proximal portion of the lesion back into the left circumflex was stented with a 2.75 x 20 Synergy drug-eluting stent. These lesions were then post dilated with a 3 mm noncompliant balloon. Wire was subsequently removed. Subsequent angiography revealed excellent angioplasty and stenting results. The patient tolerated the procedure well with no immediate complications. He was transported back to his room in stable condition. PROCEDURE FINDINGS 1. Left main coronary artery has a distal 40% stenosis. 2. Left anterior descending coronary artery is occluded in its midportion. The first diagonal branch is also occluded at its ostium. 3. Left circumflex coronary artery has diffuse proximal 50% stenosis. The first obtuse marginal vessel was a bifurcating vessel. There is a severe subtotal stenosis at the ostium of the first obtuse marginal vessel and the inferior branch has a long tubular 90% stenosis. The 2nd obtuse marginal vessel was patent. 4. The right coronary artery is occluded in its midportion. 5. There is a saphenous vein graft seen anastomosed to the distal right coronary artery, which is patent and provides flow into the posterior descending coronary artery. 6. There is an occluded saphenous vein graft that was likely anastomosed to the obtuse marginal vessel. 7. There is a patent saphenous vein graft to the first diagonal branch. There is a jump graft also to an inferior branch of the first diagonal. All these vessels are patent. 8. The left internal mammary artery graft is patent and is anastomosed to the mid-LAD. INTERVENTIONAL RESULTS: Successful percutaneous coronary intervention of the first obtuse marginal vessel. Pre PCI SHANNON flow was I. Post PCI SHANNON flow was III. Post procedure stenosis less than 10%. RECOMMENDATIONS: Continue dual antiplatelet therapy. The patient will receive optimal medical therapy for his coronary artery disease. Job#: [id number] EARNESTINE
--- NOTE | 2018-11-16 08:33 | NUR ---
Addendum- Discharge summary: Obtuse Marginal Artery PCI. Grant Orozco MD, PhD.
== END 2018-10-05 13:16 | disposition home or self-care (01) | DRG 247 ==
LOC: ER 08:11 → ERHOLD 11:51 → IMCU 10-02 18:25
PROVIDERS: ADMIT Internal Medicine; ATTEND Internal Medicine
PROC: 027036Z Dilation of Coronary Artery, One Artery with Three Drug-eluting Intraluminal Devices, Percutaneous Approach (ICD-10-PCS; principal; 2018-10-02)
PROC: 4A023N7 Measurement of Cardiac Sampling and Pressure, Left Heart, Percutaneous Approach (ICD-10-PCS; 2018-10-02)
PROC: B2111ZZ Fluoroscopy of Multiple Coronary Arteries using Low Osmolar Contrast (ICD-10-PCS; 2018-10-02)
PROC: B2151ZZ Fluoroscopy of Left Heart using Low Osmolar Contrast (ICD-10-PCS; 2018-10-02)
PROC: B2131ZZ Fluoroscopy of Multiple Coronary Artery Bypass Grafts using Low Osmolar Contrast (ICD-10-PCS; 2018-10-02)
PROC: B2181ZZ Fluoroscopy of Left Internal Mammary Bypass Graft using Low Osmolar Contrast (ICD-10-PCS; 2018-10-02)
PROC: 02703ZZ Dilation of Coronary Artery, One Artery, Percutaneous Approach (ICD-10-PCS; 2018-10-02)
DX: I25.719 Atherosclerosis of autologous vein coronary artery bypass graft(s) with unspecified angina pectoris (principal); C91.10 Chronic lymphocytic leukemia of B-cell type not having achieved remission; H43.12 Vitreous hemorrhage, left eye; E11.65 Type 2 diabetes mellitus with hyperglycemia; I25.119 Atherosclerotic heart disease of native coronary artery with unspecified angina pectoris; E78.5 Hyperlipidemia, unspecified; E11.51 Type 2 diabetes mellitus with diabetic peripheral angiopathy without gangrene; Z79.4 Long term (current) use of insulin; I25.10 Atherosclerotic heart disease of native coronary artery without angina pectoris; Z95.1 Presence of aortocoronary bypass graft; Z95.5 Presence of coronary angioplasty implant and graft; I11.9 Hypertensive heart disease without heart failure; I25.84 Coronary atherosclerosis due to calcified coronary lesion; I25.6 Silent myocardial ischemia
CPT/HCPCS: 36415; 71046; 78452; 80048; 80053; 80061; 82550; 82553; 82948; 83036; 83880; 84443; 84484; 85025; 85610; 85730; 92928; 93005; 93017; 93306; 93455; 99284; A9502; C1725; C1760; C1769; C1874; J0360; J2001; J2250; J7030; Q9967

== ENCOUNTER 2019-05-23 16:17 | Inpatient (IN) | payer BC ==
[~2019-05-23] VITALS: Ht 188 cm; Wt 82.1 kg
[~2019-05-23 16:17] MED LIST changes: +ASPIRIN EC81 MG PO; +BRILINTA90 MG PO; +FAMOTIDINE20 MG PO; +LEVEMIR100 UNIT/1 SQ; +LIPITOR20 MG PO; +NOVOLOG100 UNIT/1 SQ
--- OUTSIDE RECORDS SUMMARY | 2019-05-23 16:19 | XMS REPORT ---
Author Author [facility] Address Unknown Phone Unavailable Care Team Providers Care Glass Carrier Name Role Phone Bonita YOUNG Unavailable Unavailable Problems This patient has no known problems. Allergies, Adverse Reactions, Alerts This patient has no known allergies or adverse reactions. Medications This patient has no known medications. Results Test Description Test Time Test Comments Text Results Atomic Results Result Comments CHEST 2 VIEWS 2018-10-01 09:00:00 [facility] [address] [place] [address] Patient Name: GASPER UMANA MR #: [id number] : 1960 Age/Sex: 58/M Req #: [id number] Adm Physician: Ordered by: PRAKASH YOUNG MD Report #: [id number] Location: ER Room/Bed: Procedure: [id number] DX/CHEST 2 VIEWS Exam Date: 10/01/18 Exam Time: 843 REPORT STATUS: Signed EXAMINATION: CHEST 2 VIEWS INDICATION: sob, cp [id number] N COMPARISON: Chest radiograph 04/04/2014 FINDINGS: [...]
--- OUTSIDE RECORDS SUMMARY | 2019-05-23 16:19 | XMS REPORT | Continuity of Care Document ---
Author Author [facility] Address Unknown Phone Unavailable Care Team Providers Care Plate Stacker Hand Name Role Phone [employer] [facility] Unavailable Unavailable Problems Problem Status Onset Date Classification [...] Fluticasone propionate 0.05 MG/ACTUAT Metered Dose Nasal [place] fluticasone 50 mcg/actuation nasal spray,suspension Inhale 2 sprays to each nostrils once a day. Active [facility] benzonatate 100 MG Oral Capsule [Tessalon Perles] Tessalon Perles 100 mg capsule Take 1 capsule 3 times a day by oral route as needed for cough. Active [facility] Allergies, Adverse Reactions, Alerts No Known Medication Allergies Immunizations Immunization Date Given Site Status Last Updated Comments Source influenza, seasonal, injectable 06/17/2016 completed [facility] Results Order Name Results Value Reference Range Date Interpretation Comments Source Influenza A negative 08/14/2016 [facility] Influenza B negative 08/14/2016 [facility] RESULT positive 08/14/2016 [facility] SWAB LOCATION Left and Right tonsillar pillars 08/14/2016 [facility] Pathology Reports No Data Provided for This Section Diagnostic Reports No Data Provided for This Section Consultation Notes No Data Provided for This Section Discharge Summaries No Data Provided for This Section History and Physicals No Data Provided for This Section Vital Signs Vital Sign Value Date Comments Source Diastolic (mm Hg) 82 08/14/2016 [facility] Height 74 08/14/2016 [facility] Systolic (mm Hg) 118 08/14/2016 [facility] Weight 210 08/14/2016 [facility] Encounters Location Location Details Encounter Type Encounter Number Reason For Visit Attending Provider ADM Date DC Date Status Source [place] - [facility] - [id number] Wagner, PREFLIGHT INSPECTOR: [address] [place] [address], Ph. [id number] Asia Wagner 08/14/2016 [facility] [place] - [facility] - [id number] Wagner, PREFLIGHT INSPECTOR: [address] [place] [address], Ph. [id number] Asia Wagner 08/14/2016 [facility] Procedures No Data Provided for This Section Assessment and Plan No Data Provided for This Section Plan of Care No Data Provided for This Section Social History Social History Date Source Smoking Status Never Smoker 08/14/2016 [facility] Family History No Data Provided for This Section Advance Directives No Data Provided for This Section Functional Status No Data Provided for This Section
[2019-05-23] MEDS: ALBUTEROL SULF 0.083% NEB SOLN 3 ML NEB NEB STA ×2 (16:30→18:30)
[2019-05-23] MEDS ORDERED: CEFTRIAXONE SOD 1 GM/NS 50 ML 50 ML IV STA (16:38)
[2019-05-23] MEDS ORDERED: SODIUM CHLORIDE 0.9% 1000ML 1,000 ML IV STA (16:38)
[2019-05-23] MEDS ORDERED: IPRATROPIUM BROMIDE 0.02% 2.5 ML NEB NEB STA (16:38)
[2019-05-23] MEDS ORDERED: AZITHROMYCIN 500MG/NS 250 ML 250 ML IV STA (16:38)
[2019-05-23] MEDS ORDERED: ACETAMINOPHEN/CODEINE ELIX 120-12 MG/5 ML UDC PO ONE (16:45)
[2019-05-23 18:17] LABS: BASOPHILS # (AUTO) 0.1 (0.0-0.1); BASOPHILS % 0.1 % (0.0-1.0); EOSINOPHILS # (AUTO) 0.1 (0.0-0.4); EOSINOPHILS % 0.1 % (0.0-6.0); HEMATOCRIT 29.7 % (38.2-49.6); HEMOGLOBIN 9.5 g/dL (14.0-18.0); LYMPHOCYTES # (AUTO) 89.5 (1.0-3.2); LYMPHOCYTES % 90.3 % (18.0-39.1); MEAN CORPUSCULAR HEMOGLOBIN 33.8 pg (28-32); MEAN CORPUSCULAR VOLUME 105.7 fL (81-99); MONOCYTES # (AUTO) 7.2 (0.2-0.8); MONOCYTES % 7.2 % (4.4-11.3); NEUTROPHILS # (AUTO) 2.2 (2.1-6.9); NEUTROPHILS % 2.2 % (38.7-80.0); PLATELET COUNT 290 x10e3/uL (140-360); RED BLOOD COUNT 2.81 x10e6/uL (4.3-5.7); RED CELL DISTRIBUTION WIDTH 15.5 % (11.7-14.4)
[2019-05-23 18:23] LABS: INR 1.05; PROTHROMBIN TIME 14.2 seconds (11.9-14.5)
[2019-05-23 18:30] LABS: ALANINE AMINOTRANSFERASE 19 IU/L (0-55); ALBUMIN 2.9 g/dL (3.5-5.0); ALBUMIN/GLOBULIN RATIO 0.7 (0.8-2.0); ALKALINE PHOSPHATASE 85 IU/L (40-150); ANION GAP 15.8 mmol/L (8-16); BLOOD UREA NITROGEN 15 mg/dL (7-26); BUN/CREATININE RATIO 18 (6-25); CARBON DIOXIDE 24 mmol/L (22-29); CHLORIDE 102 mmol/L (98-107); CREATINE KINASE 80 IU/L (30-200); CREATININE, SERUM 0.85 mg/dL (0.72-1.25); EST GLOMERULAR FILTRATION RATE > 60 ML/MIN (60-); GLUCOSE 258 mg/dL (74-118); POTASSIUM 3.8 mmol/L (3.5-5.1); SODIUM 138 mmol/L (136-145)
--- NOTE | 2019-05-23 18:34 | Diagnostic Imaging Report ---
EXAMINATION: CHEST SINGLE (PORTABLE) INDICATION: ^ERMD ORDER ^[id number] ^[id number] ^Y COMPARISON: 10/01/2018 FINDINGS: AP view TUBES and LINES: None. LUNGS: Lungs are well inflated. Central vascular congestion. PLEURA: No pleural effusion or pneumothorax. HEART AND MEDIASTINUM: The cardiomediastinal silhouette is mildly enlarged. Median sternotomy wires and mediastinal surgical clips are again seen. BONES AND SOFT TISSUES: No acute osseous lesion. Soft tissues are unremarkable. UPPER ABDOMEN: No free air under the diaphragm. IMPRESSION: Mildly enlarged cardiomediastinal silhouette and central vascular congestion. Underlying pneumonia in the perihilar regions cannot be excluded. Signed by: Dr. Tyrel Cisneros MD on 05/23/2019 6:30 PM
[2019-05-23 18:41] LABS: B-TYPE NATRIURETIC PEPTIDE2 171.5 pg/mL (0-100)
[2019-05-23 18:51] LABS: THYROID STIMULATING HORMONE 0.129 uIU/mL (0.350-4.940)
[2019-05-23] MEDS ORDERED: ACETAMINOPHEN/CODEINE ELIX 120-12 MG/5 ML UDC ONE (19:52)
[2019-05-23 19:55] LABS: LYMPHOCYTES % (MANUAL) 92 % (19-48); MONOCYTES % (MANUAL) 3 % (3.4-9.0); NEUTROPHILS % (MANUAL) 3 % (40-74)
[2019-05-23 19:56] LABS: HYPOCHROMASIA SLIGHT; PLATELET ESTIMATE ADEQUATE; PLATELET MORPHOLOGY COMMENT NORMAL; RBC MORPHOLOGY COMMENT NORMAL
[2019-05-23] MEDS ORDERED: AZITHROMYCIN 500MG/SOD CHL 0.9% 250ML BAG IV SCH (20:00)
[2019-05-23] MEDS ORDERED: CEFTRIAXONE SOD 1 GRAM/0.9% SOD CHL 50ML BAG IV SCH (20:00)
[2019-05-23] MEDS ORDERED: SODIUM CHLORIDE 0.9% 1000ML 1,000 ML IV ONE (20:00)
[2019-05-23] MEDS ORDERED: DEXTROSE 50% SYRINGE 50 ML IV PRN (20:00)
[2019-05-23] MEDS: CEFTRIAXONE SOD 1 GM/NS 50 ML 50 ML IV SCH (20:15)
[2019-05-23] MEDS: AZITHROMYCIN 500MG/NS 250 ML 250 ML IV SCH (20:30)
[2019-05-23 21:16] LABS: BILIRUBIN,URINE NEGATIVE (NEGATIVE); CLARITY,URINE CLEAR (CLEAR); COLOR,URINE YELLOW (YELLOW); KETONES,URINE NEGATIVE (NEGATIVE); LEUKOCYTE ESTERASE ,URINE NEGATIVE (NEGATIVE); NITRITE,URINE NEGATIVE (NEGATIVE); PROTEIN,URINE DIPSTICK 2+ (NEGATIVE); URINE UROBILINOGEN 2 mg/dL (0.2 - 1)
[2019-05-23 21:31] LABS: BACTERIA,URINE FEW /HPF; MUCUS,URINE MODERATE (RARE)
[2019-05-23 21:39] VITALS: BP 157/74
[2019-05-23 22:00] VITALS: BP 157/74
[2019-05-23] MEDS: INSULIN LISPRO 100 UNIT/1 ML 3ML VIAL SQ SCH (22:00)
[2019-05-24] VITALS (7 sets, daily range): BP systolic 133–162; BP diastolic 69–90
[2019-05-24 05:26] LABS: BASOPHILS # (AUTO) 0.2 (0.0-0.1); BASOPHILS % 0.2 % (0.0-1.0); EOSINOPHILS # (AUTO) 0.1 (0.0-0.4); EOSINOPHILS % 0.1 % (0.0-6.0); HEMATOCRIT 26.8 % (38.2-49.6); HEMOGLOBIN 8.9 g/dL (14.0-18.0); LYMPHOCYTES # (AUTO) 86.4 (1.0-3.2); LYMPHOCYTES % 90.7 % (18.0-39.1); MEAN CORPUSCULAR HGB CONC 33.2 g/dL (31-35); MEAN CORPUSCULAR VOLUME 108.5 fL (81-99); MONOCYTES # (AUTO) 6.4 (0.2-0.8); MONOCYTES % 6.7 % (4.4-11.3); NEUTROPHILS # (AUTO) 2.2 (2.1-6.9); NEUTROPHILS % 2.2 % (38.7-80.0); PLATELET COUNT 320 x10e3/uL (140-360); RED BLOOD COUNT 2.47 x10e6/uL (4.3-5.7); RED CELL DISTRIBUTION WIDTH 17.5 % (11.7-14.4)
[2019-05-24 05:33] LABS: ALANINE AMINOTRANSFERASE 18 IU/L (0-55); ALBUMIN 2.7 g/dL (3.5-5.0); ALBUMIN/GLOBULIN RATIO 0.7 (0.8-2.0); ALKALINE PHOSPHATASE 82 IU/L (40-150); ANION GAP 13.8 mmol/L (8-16); BLOOD UREA NITROGEN 12 mg/dL (7-26); BUN/CREATININE RATIO 16 (6-25); CALCIUM 8.5 mg/dL (8.4-10.2); CARBON DIOXIDE 24 mmol/L (22-29); CHLORIDE 103 mmol/L (98-107); CREATININE, SERUM 0.75 mg/dL (0.72-1.25); EST GLOMERULAR FILTRATION RATE > 60 ML/MIN (60-); GLUCOSE 174 mg/dL (74-118); POTASSIUM 3.8 mmol/L (3.5-5.1); SODIUM 137 mmol/L (136-145)
[2019-05-24 06:36] LABS: CREATINE KINASE MB 1.1 ng/mL (0-5.0)
[2019-05-24 07:15] LABS: CHOL/HDL RATIO 5.5 (3.9-4.7)
[2019-05-24] MEDS: INSULIN LISPRO 100 UNIT/1 ML 3ML VIAL SQ SCH ×7 (07:30→22:20)
[2019-05-24 07:36] LABS: THYROID STIMULATING HORMONE 0.19 uIU/mL (0.350-4.940)
[2019-05-24 07:43] LABS: LYMPHOCYTES % (MANUAL) 86 % (19-48); MONOCYTES % (MANUAL) 1 % (3.4-9.0); NEUTROPHILS % (MANUAL) 8 % (40-74)
[2019-05-24 07:44] LABS: HYPOCHROMASIA SLIGHT; PLATELET ESTIMATE ADEQUATE; PLATELET MORPHOLOGY COMMENT NORMAL; RBC MORPHOLOGY COMMENT ABNORMAL; SMUDGE CELLS MODERATE
[2019-05-24] MEDS: ASPIRIN 81 MG ENTERIC COATED PO SCH (08:30)
[2019-05-24] MEDS: BENZONATATE 100 MG CAP PO SCH ×3 (08:31→22:00)
[2019-05-24] MEDS: TICAGRELOR 90 MG TABLET PO SCH ×2 (08:31→16:43)
[2019-05-24] MEDS: FAMOTIDINE 20 MG TAB PO SCH ×2 (10:40→16:43)
[2019-05-24 14:43] LABS: CREATINE KINASE MB 0.9 ng/mL (0-5.0)
[2019-05-24] MEDS: ALBUTEROL SULF 0.083% NEB SOLN 3 ML NEB NEB PRN (15:40)
[2019-05-24] MEDS ORDERED: SODIUM CHLORIDE 0.9% 250ML 250 ML ONE (21:47)
[2019-05-24] MEDS: CEFTRIAXONE SOD 1 GM/NS 50 ML 50 ML IV SCH (22:00)
[2019-05-24] MEDS: ATORVASTATIN 20 MG TAB PO SCH (22:00)
[2019-05-24] MEDS: INSULIN GLARGINE 100 UNITS/ML VIAL SQ SCH (22:20)
[2019-05-24] MEDS: AZITHROMYCIN 500MG/NS 250 ML 250 ML IV SCH (23:00)
[2019-05-25] VITALS (9 sets, daily range): BP systolic 128–176; BP diastolic 60–80
[2019-05-25] MEDS: FAMOTIDINE 20 MG TAB PO SCH ×2 (06:43→17:23)
[2019-05-25] MEDS: INSULIN LISPRO 100 UNIT/1 ML 3ML VIAL SQ SCH ×7 (07:30→21:00)
[2019-05-25] MEDS: ASPIRIN 81 MG ENTERIC COATED PO SCH (09:00)
[2019-05-25] MEDS: BENZONATATE 100 MG CAP PO SCH ×3 (09:00→21:30)
[2019-05-25] MEDS: TICAGRELOR 90 MG TABLET PO SCH ×2 (09:00→17:00)
[2019-05-25] MEDS: ALBUTEROL SULF 0.083% NEB SOLN 3 ML NEB NEB PRN ×2 (11:35→21:05)
[2019-05-25] MEDS: CEFTRIAXONE SOD 1 GM/NS 50 ML 50 ML IV SCH (21:00)
[2019-05-25] MEDS: INSULIN GLARGINE 100 UNITS/ML VIAL SQ SCH (21:00)
[2019-05-25] MEDS: IPRATROPIUM BROMIDE 0.02% 2.5 ML NEB NEB PRN (21:05)
[2019-05-25] MEDS: ATORVASTATIN 20 MG TAB PO SCH (21:30)
[2019-05-25] MEDS: AZITHROMYCIN 500MG/NS 250 ML 250 ML IV SCH (22:28)
[2019-05-26] VITALS (7 sets, daily range): BP systolic 126–147; BP diastolic 59–75
[2019-05-26] MEDS: FAMOTIDINE 20 MG TAB PO SCH ×2 (05:32→16:39)
[2019-05-26] MEDS: INSULIN LISPRO 100 UNIT/1 ML 3ML VIAL SQ SCH ×7 (07:30→21:30)
[2019-05-26] MEDS: IPRATROPIUM BROMIDE 0.02% 2.5 ML NEB NEB PRN ×2 (07:30→19:40)
[2019-05-26] MEDS: ASPIRIN 81 MG ENTERIC COATED PO SCH (08:56)
[2019-05-26] MEDS: BENZONATATE 100 MG CAP PO SCH ×3 (08:56→20:20)
[2019-05-26] MEDS: TICAGRELOR 90 MG TABLET PO SCH ×2 (08:56→16:39)
[2019-05-26] MEDS: ALBUTEROL SULF 0.083% NEB SOLN 3 ML NEB NEB PRN (19:40)
[2019-05-26] MEDS ORDERED: SODIUM CHLORIDE 0.9% 250ML 250 ML ONE (20:01)
[2019-05-26] MEDS: CEFTRIAXONE SOD 1 GM/NS 50 ML 50 ML IV SCH (20:20)
[2019-05-26] MEDS: ATORVASTATIN 20 MG TAB PO SCH (20:20)
[2019-05-26] MEDS: INSULIN GLARGINE 100 UNITS/ML VIAL SQ SCH (21:30)
[2019-05-26] MEDS: AZITHROMYCIN 500MG/NS 250 ML 250 ML IV SCH (21:41)
[2019-05-27 00:26] VITALS: BP 159/69
[2019-05-27 05:52] VITALS: BP 141/78
[2019-05-27] MEDS: FAMOTIDINE 20 MG TAB PO SCH (06:13)
[2019-05-27] MEDS: IPRATROPIUM BROMIDE 0.02% 2.5 ML NEB NEB PRN (07:24)
[2019-05-27] MEDS: ALBUTEROL SULF 0.083% NEB SOLN 3 ML NEB NEB PRN (07:24)
[2019-05-27] MEDS: INSULIN LISPRO 100 UNIT/1 ML 3ML VIAL SQ SCH ×2 (07:30→09:00)
[2019-05-27 08:00] VITALS: BP 131/68
[2019-05-27 08:10] VITALS: BP 137/68
[2019-05-27] MEDS: BENZONATATE 100 MG CAP PO SCH (09:09)
[2019-05-27] MEDS: ASPIRIN 81 MG ENTERIC COATED PO SCH (09:09)
[2019-05-27] MEDS: TICAGRELOR 90 MG TABLET PO SCH (09:09)
[2019-05-27] MEDS ORDERED: LEVAQUIN500 MG PO (09:58)
[2019-05-27] MEDS ORDERED: TESSALON PERLE100 MG PO (09:58)
[2019-05-27] MEDS ORDERED: MUCINEX DM ER1 EACH PO (09:58)
== END 2019-05-27 11:03 | disposition home or self-care (01) | DRG 871 ==
LOC: ER 16:17 → ERHOLD 19:59 → MED/SURG2 21:39
PROVIDERS: ADMIT Internal Medicine; ATTEND Internal Medicine
DX: A41.9 Sepsis, unspecified organism (principal); J18.0 Bronchopneumonia, unspecified organism; C91.10 Chronic lymphocytic leukemia of B-cell type not having achieved remission; I25.10 Atherosclerotic heart disease of native coronary artery without angina pectoris; Z95.1 Presence of aortocoronary bypass graft; Z95.5 Presence of coronary angioplasty implant and graft; E11.51 Type 2 diabetes mellitus with diabetic peripheral angiopathy without gangrene; E78.5 Hyperlipidemia, unspecified; I11.9 Hypertensive heart disease without heart failure; D53.9 Nutritional anemia, unspecified; E05.80 Other thyrotoxicosis without thyrotoxic crisis or storm; Z89.412 Acquired absence of left great toe; Z79.82 Long term (current) use of aspirin; Z79.4 Long term (current) use of insulin
CPT/HCPCS: 36415; 71045; 80053; 80061; 81001; 82550; 82553; 82607; 82948; 83036; 83605; 83880; 84439; 84443; 84480; 84484; 85025; 85610; 87040; 87086; 87400; 93005; 94640; 99284; J0456; J0696; J1815; J7030; J7050

== ENCOUNTER 2019-11-16 13:26 | Emergency (ER) | payer BC ==
[~2019-11-16] VITALS: Ht 188 cm; Wt 82.1 kg
[~2019-11-16 13:26] MED LIST changes: +LEVAQUIN500 MG PO; +MUCINEX DM ER1 EACH PO; +TESSALON PERLE100 MG PO
== END 2019-11-16 14:43 | disposition home or self-care (01) ==
LOC: ER 13:26
DX: L02.214 Cutaneous abscess of groin (principal); I10 Essential (primary) hypertension; E11.9 Type 2 diabetes mellitus without complications; I51.9 Heart disease, unspecified; E78.5 Hyperlipidemia, unspecified; Z95.1 Presence of aortocoronary bypass graft
CPT/HCPCS: 99283

== ENCOUNTER 2019-11-19 13:49 | Inpatient (IN) | payer BC ==
[~2019-11-19] VITALS: Ht 188 cm; Wt 86.6 kg
[2019-11-19] MEDS ORDERED: PANTOPRAZOLE 40 MG 10ML VIAL IV STA (13:53)
[2019-11-19] MEDS ORDERED: SODIUM CHLORIDE 0.9% 1000ML 1,000 ML IV STA (13:53)
[2019-11-19] MEDS ORDERED: ONDANSETRON HCL INJ 2MG/ML 2ML 2 MG/ML VIAL IV STA (13:53)
[2019-11-19] MEDS ORDERED: VANCOMYCIN 1GM/NS 250 ML 250 ML IV ONE (14:00)
[2019-11-19] MEDS ORDERED: MORPHINE SULFATE 2 MG/ML SYR 1ML IV PRN (14:15)
[2019-11-19] MEDS: PIPER-TAZ 3.375 GM 50 ML IV SCH ×2 (14:49→20:53)
[2019-11-19 14:58] LABS: HEMATOCRIT 34.8 % (38.2-49.6); HEMOGLOBIN 10.6 g/dL (14.0-18.0); LYMPHOCYTES # (AUTO) 123.7 (1.0-3.2); LYMPHOCYTES % 96.2 % (18.0-39.1); MEAN CORPUSCULAR HEMOGLOBIN 32.8 pg (28-32); MEAN CORPUSCULAR HGB CONC 30.5 g/dL (31-35); MEAN CORPUSCULAR VOLUME 107.7 fL (81-99); MONOCYTES # (AUTO) 2.6 (0.2-0.8); NEUTROPHILS # (AUTO) 2.2 (2.1-6.9); NEUTROPHILS % 1.7 % (38.7-80.0); PLATELET COUNT 186 x10e3/uL (140-360); RED BLOOD COUNT 3.23 x10e6/uL (4.3-5.7); RED CELL DISTRIBUTION WIDTH 16.8 % (11.7-14.4)
[2019-11-19 15:09] LABS: INR 1.09; PARTIAL THROMBOPLASTIN TIME 27.9 seconds (23.8-35.5); PROTHROMBIN TIME 14.4 seconds (11.9-14.5)
[2019-11-19 15:15] LABS: ALANINE AMINOTRANSFERASE 16 IU/L (0-55); ALBUMIN 3.4 g/dL (3.5-5.0); ALKALINE PHOSPHATASE 80 IU/L (40-150); ANION GAP 17.7 mmol/L (8-16); BLOOD UREA NITROGEN 21 mg/dL (7-26); BUN/CREATININE RATIO 26 (6-25); CALCIUM 8.9 mg/dL (8.4-10.2); CARBON DIOXIDE 22 mmol/L (22-29); CHLORIDE 103 mmol/L (98-107); CREATINE KINASE 26 IU/L (30-200); CREATININE, SERUM 0.81 mg/dL (0.72-1.25); EST GLOMERULAR FILTRATION RATE > 60 ML/MIN (60-); GLUCOSE 260 mg/dL (74-118); POTASSIUM 4.7 mmol/L (3.5-5.1); SODIUM 138 mmol/L (136-145)
[2019-11-19 15:24] LABS: COLOR,URINE YELLOW (YELLOW)
[2019-11-19 15:25] LABS: CLARITY,URINE SL CLOUDY (CLEAR); LEUKOCYTE ESTERASE ,URINE NEGATIVE (NEGATIVE); NITRITE,URINE NEGATIVE (NEGATIVE)
[2019-11-19 15:26] LABS: PROTEIN,URINE DIPSTICK 2+ (NEGATIVE)
[2019-11-19 15:27] LABS: BILIRUBIN,URINE NEGATIVE (NEGATIVE); KETONES,URINE NEGATIVE (NEGATIVE); URINE UROBILINOGEN 0.2 mg/dL (0.2 - 1)
[2019-11-19 15:31] LABS: AMORPHOUS SEDIMENT,URINE MODERATE (FEW); BACTERIA,URINE MODERATE /HPF; EPITHELIAL CELLS,URINE FEW /LPF
[2019-11-19] MEDS: SODIUM CHLORIDE 0.9% 1000ML 1,000 ML IV SCH (15:38)
[2019-11-19] MEDS ORDERED: DEXTROSE 50% SYRINGE 50 ML IV PRN (15:45)
[2019-11-19] MEDS ORDERED: ACETAMINOPHEN 325 MG TAB PO NR (15:45)
[2019-11-19] MEDS ORDERED: ACETAMINOPHEN 325 MG TAB ONE (15:50)
[2019-11-19] MEDS: INSULIN LISPRO 100 UNIT/1 ML 3ML VIAL SQ SCH ×2 (16:35→21:35)
--- NOTE | 2019-11-19 16:47 | Diagnostic Imaging Report ---
EXAM: Focused Soft Tissue Ultrasound Evaluation of the right groin INDICATION: ^RIGHT INGUINAL MASS, ? ABSCESS VS LYMPH NODE COMPARISON: None TECHNIQUE: Welsh scale, color Doppler images of the right groin were obtained. FINDINGS: Sonographic images of the area of clinical interest in the right groin demonstrates a 2.3 x 0.8 x 2.1 cm soft tissue mass with increased associated vascularity. No focal fluid collection. IMPRESSION: Right groin soft tissue mass with increased associated vascularity. This may represent a chrissie mass/metastatic disease if the patient has known history of primary malignancy. No focal fluid collection. Signed by: Anjali Garcias MD on 11/19/2019 4:44 PM
--- NOTE | 2019-11-19 17:39 | NUR ---
dr manrique at pt bedside
--- NOTE | 2019-11-19 22:47 | NUR ---
SBAR REPORT RECEIVED FROM ER PATIENT PENDING ARRIVAL TO THE FLOOR, AOX3, UP WITH STANDBY ASSIST FULL CODE, NO DISTRESS REPORTED, WILL RESUME CARE
--- NOTE | 2019-11-19 23:03 | NUR ---
PATIENT ARRIVED TO THE FLOOR VIA WHEELCHAIR , AOX3, SKIN WARM DRY, RIGHT INGUINAL ABSCESS NOTED, PT REPORTS PAIN LEVEL 8/10, ORIENTED TO STAFF, ROOM, AND SAFETY MEASURES PLACED, PT REPORT PREVIOUS LEFT EYE SURGERY 3 DAYS PRIOR CAUSING REDNESS & DECREASE VISION, FALL PRECAUTIONS IN PLACE FOR SAFTEY, IV LFA 18g PATENT, IV FLUIDS INFUSING PATENT NO S/SX OF INFILTRATION
[2019-11-19 23:16] VITALS: BP 164/80
[2019-11-19 23:35] VITALS: BP 164/80
[2019-11-20] VITALS (10 sets, daily range): BP systolic 142–164; BP diastolic 66–85
[2019-11-20] MEDS: PIPER-TAZ 3.375 GM 50 ML IV SCH ×3 (01:41→14:34)
[2019-11-20] MEDS: MORPHINE SULFATE INJ 4 MG/ML INJ 1ML IV PRN (01:42)
[2019-11-20] MEDS: SODIUM CHLORIDE 0.9% 1000ML 1,000 ML IV SCH ×2 (06:03→17:11)
[2019-11-20 06:04] LABS: ANION GAP 11.2 mmol/L (8-16); BLOOD UREA NITROGEN 16 mg/dL (7-26); BUN/CREATININE RATIO 17 (6-25); CARBON DIOXIDE 27 mmol/L (22-29); CHLORIDE 106 mmol/L (98-107); CREATININE, SERUM 0.95 mg/dL (0.72-1.25); POTASSIUM 4.2 mmol/L (3.5-5.1); SODIUM 140 mmol/L (136-145)
[2019-11-20 06:05] LABS: ALANINE AMINOTRANSFERASE 13 IU/L (0-55); ALBUMIN 3.1 g/dL (3.5-5.0); ALKALINE PHOSPHATASE 76 IU/L (40-150); CALCIUM 8.6 mg/dL (8.4-10.2); EST GLOMERULAR FILTRATION RATE > 60 ML/MIN (60-); GLUCOSE 137 mg/dL (74-118)
--- NOTE | 2019-11-20 06:34 | NUR ---
H&P PRIMARY CARE PHYSICIAN: Dr. Mckeon CHARTER BOAT OPERATOR: Dr. Chung CRANE OPERATOR CAB: Dr. Bellamy CHIEF COMPLAINT: groin pain HISTORY OF PRESENT ILLNESS: This is a 59yoM, developed groin infection/pain, came to ED, treated with clinda and other abx, sent home, but worse at PCP office, sent back for mgmt; Pt states that size of lesion decreased, but rash developed due to antibiotics. No real fevers. PAST MEDICAL HISTORY: CAD s/p CABG, disease, status post coronary artery bypass grafting in 2013, diabetic foot ulcer, status post right great toe partial amputation, vitreous hemorrhage in 2017 secondary to uncontrolled diabetes, peripheral arterial disease, CLL, hyperlipidemia, Blurred vision secondary to vitreous hemorrhage, Left-sided vitreous hemorrhage, Uncontrolled diabetes mellitus: Hemoglobin A1c is 9.4, HLD, Hypertensive heart disease with cardiomegaly, CAD with Obtuse marginal disease s/p PCI, Bronchopneumonia, Subclinical hyperthyroidism, glaucoma PAST SURGICAL HISTORY: Partial right great toe amputation, coronary artery bypass grafting times 5 in 2013, PCI to obtuse marginal a. ALLERGIES: PER ELECTRONIC MEDICAL RECORD. FAMILY/SOCIAL HISTORY: Patient is . No alcohol, illicits or cigarettes. MEDICATIONS: Per electronic medical record. REVIEW OF SYSTEMS: Denies any dizziness. Denies any fever, chills, sweats, nausea, vomiting, diarrhea, headache, chest pain, shortness of breath, back pain. PHYSICAL EXAMINATION VITAL SIGNS: Have been reviewed. GENERAL: tired appearing HEENT: Anicteric. left eye reduced vision CARDIOVASCULAR: Normal S1 and S2. LUNGS: mod bs ABDOMEN: Soft, nontender and nondistended. EXTREMITIES: He has right great toe partial amputated, well-healed. SKIN: Dry. PSYCHIATRIC: Flat affect. NEUROLOGICAL: Alert and oriented times 3. Moves all extremities. MUSCULOSKELETAL: He has a midchest wall scar. LABS: Reviewed. MEDICATIONS: Reviewed. ASSESSMENT: This is a 59yoM Right suprapubic abscess- iv vanco/zosyn; ID eval. Right suparpubic mass- lymphoma? in setting of CLL- may need bx vs excisional bx; check CTA; CLL- per hematology DM2- lipid/hba1c CAD with hx CABG PAD- cont ticagrelor Hypertensive heart ds Prop; scd; pepcid dispo: Grant Orozco MD, PhD.
[2019-11-20 06:53] LABS: HEMATOCRIT 32.1 % (38.2-49.6); HEMOGLOBIN 9.6 g/dL (14.0-18.0); MEAN CORPUSCULAR HEMOGLOBIN 32.2 pg (28-32); MEAN CORPUSCULAR HGB CONC 29.9 g/dL (31-35); MEAN CORPUSCULAR VOLUME 107.7 fL (81-99); RED BLOOD COUNT 2.98 x10e6/uL (4.3-5.7); RED CELL DISTRIBUTION WIDTH 16.6 % (11.7-14.4)
[2019-11-20 06:54] LABS: LYMPHOCYTES % 95.5 % (18.0-39.1); MONOCYTES % 3.1 % (4.4-11.3); NEUTROPHILS % 1.4 % (38.7-80.0); PLATELET COUNT 152 x10e3/uL (140-360)
--- NOTE | 2019-11-20 06:58 | NUR ---
MD Brian PATTEN ON MED/SURG FLOOR ROUNDING ON PATIENT, ORDERS PENDING
--- NOTE | 2019-11-20 07:10 | NUR ---
PATIENT IN BED RESTING WITH NO S/S OF DISTRESS. REDNESS AND SWELLING TO RIGHT INGUINAL AREA. IV FLUID INFUSING ORDERED. BED IN LOWER POSITION, CALL LIGHT AT REACH.
[2019-11-20] MEDS: INSULIN LISPRO 100 UNIT/1 ML 3ML VIAL SQ SCH ×4 (07:30→20:48)
--- NOTE | 2019-11-20 07:40 | NUR ---
OFFGOING SBAR REPORT GIVEN TO PRETTY BROOKE, PATIENT AWAKE ALERT, NO DISTRESS NOTED, NO C/O PAIN OR DISCOMFORT, AT BEDSIDE, PLACED ON BED ALARM FOR SAFETY, ADVISED TO CALL/DONT FALL, BED IN LOWEST POSITION, PERSONAL BELONGINGS WITHIN REACH, LAB CALLED CRITICAL wbc RESULT, RESULT GIVEN TO PRETTY RN, PATIENT REMAIN ON IV ABT THERAPY, CONSULT CALLED BY NISHI GALINDO ORDERED
[2019-11-20 08:24] LABS: LYMPHOCYTES # (AUTO) 111.5 (1.0-3.2); MONOCYTES # (AUTO) 3.6 (0.2-0.8); NEUTROPHILS # (AUTO) 1.5 (2.1-6.9)
--- NOTE | 2019-11-20 10:25 | NUR ---
PATIENT OFF UNIT TO RADIOLOGY.
--- NOTE | 2019-11-20 11:14 | NUR ---
PATIENT BACK TO UNIT FROM RADIOLOGY, IV FLUID INFUSING ORDERED.
[2019-11-20 12:02] LABS: ANISOCYTOSIS MODERATE; LYMPHOCYTES % (MANUAL) 94 % (19-48); MONOCYTES % (MANUAL) 5 % (3.4-9.0); NEUTROPHILS % (MANUAL) 1 % (40-74)
[2019-11-20 12:03] LABS: RBC MORPHOLOGY COMMENT ABNORMAL
--- NOTE | 2019-11-20 12:35 | NUR ---
CALL RECEIVED FROM RADIOLOGY REQUESTING THE CTA ABD/PELVIS TO BE CANCELLED, PT ALSO HAVE AN ORDER FOR CT ABD/PELVIS. NOTIFIED, HE STATED THAT HE WANT THE CTA TO BE DONE NOT THE CT. RADIOLOGY STAFF NOTIFIED, SHE STATED THAT THE RADIOLOGIST RECOMMENDED THE CT AND IF MD HAS ANY QUESTION, HE CAN CONTACT HIM.
--- NOTE | 2019-11-20 12:39 | Diagnostic Imaging Report ---
EXAM: CT Chest, Abdomen and Pelvis WITH intravenous contrast INDICATION: Lymphoma COMPARISON: None. TECHNIQUE: The chest, abdomen and pelvis were scanned utilizing a multidetector helical scanner from the thoracic inlet to the pubic symphysis following administration of IV contrast. Coronal and sagittal reformations were obtained. Scan was performed during portal venous phase. IV CONTRAST: 100cc Isovue 370 ORAL CONTRAST: Water COMPLICATIONS: None RADIATION DOSE: Total DLP: 982.2 mGy*cm Dose modulation, iterative reconstruction, and/or weight based adjustment of the mA/kV was utilized to reduce the radiation dose to as low as reasonably achievable. FINDINGS: LINES/ TUBES: None. LUNGS AND AIRWAYS: The central airways are patent. No focal consolidation or pulmonary edema. Left lower lobe dependent subsegmental atelectasis. No suspicious pulmonary nodules. PLEURA: The pleural spaces are clear. HEART AND MEDIASTINUM: The thyroid gland is normal. Bilateral axillary and subpectoral lymphadenopathy, measuring up to 2.3 x 1.6 cm on the right and 1.9 x 1.5 cm on the left. No mediastinal lymphadenopathy. The heart is not enlarged. No pericardial effusion. No central pulmonary embolism. Diffuse atherosclerotic coronary artery calcifications. HEPATOBILIARY: No focal hepatic lesions. No biliary ductal dilatation. The gallbladder appears unremarkable. SPLEEN: No splenomegaly. PANCREAS: No focal masses or ductal dilatation. ADRENALS: No adrenal nodules. KIDNEYS/URETERS: Nonobstructive 2 mm left midpole renal calculi. No hydronephrosis. No hydroureter. PELVIC ORGANS/BLADDER: Unremarkable. PERITONEUM / RETROPERITONEUM: No free air or fluid. LYMPH NODES: No lymphadenopathy. VESSELS: Scattered atherosclerotic calcifications of the nonaneurysmal abdominal aorta and major branches. GI TRACT: Diverticulosis without CT evidence of diverticulitis. No abnormal bowel thickening. No bowel obstruction. Normal appendix. BONES AND SOFT TISSUES: Enlarged inguinal lymph nodes measuring up to 2.0 x 1.2 cm on the right. No acute osseous injury. No suspicious lytic or blastic lesions. Mild degenerative changes of the visualized spine. Sternotomy wires intact. IMPRESSION: Axillary, subpectoral, and inguinal lymphadenopathy, concerning for lymphoma. Nonobstructive 2 mm left midpole renal calculus. No hydronephrosis. Diverticulosis without CT evidence of diverticulitis. Signed by: Anjali Garcias MD on 11/20/2019 12:36 PM
[2019-11-20] MEDS ORDERED: IOPAMIDOL 370 MG/ML 200 ML INFUS..BTL INJ ONE (13:33)
[2019-11-20] MEDS ORDERED: SODIUM CHLORIDE 0.9% 50ML 50 ML ONE (13:33)
[2019-11-20] MEDS: ONDANSETRON HCL INJ 2MG/ML 2ML 2 MG/ML VIAL IV PRN (14:46)
[2019-11-20] MEDS ORDERED: VANCOMYCIN 1GM/NS 250 ML 250 ML IV SCH (15:00)
[2019-11-20] MEDS: ACETAMINOPHEN 325 MG TAB PO PRN (15:00)
--- NOTE | 2019-11-20 15:10 | NUR ---
Visit made by the Spiritual Care Department Pastoral Visitor, Bonnie Armendariz. PV provided pastoral presence, prayer, hospitality, and supportive listening. Pastoral Visitor informed pt/family of the scope of [employer] and availability. HUEY KENNEDY Transit Manager Spiritual Care Department O: [phone] Pager: [phone] ([phone] number calling from)
--- NOTE | 2019-11-20 15:26 | NUR ---
PATIENT ASSISTED WITH SHOWER, BACK IN BED WITH CALL LIGHT AT REACH.
--- NOTE | 2019-11-20 19:11 | NUR ---
SBAR REPORT RECEIVED AT BEDSIDE, PATIENT AOX4, AT BEDSIDE, PT DENIES PAIN AT THIS TIME R/T INGUINAL ABSCESS, GAIT STEADY, DECREASE VISION LEFT EYE, FALL PRECAUTIONS IN PLACE, PATIENT ADVISED TO CALL NURSE PRIOR TO GETTING OOB FOR BRP, VERBALIZE UNDERSTANDING, EDUCATED ON HOURLY ROUNDING WITH 5P'S, EDUCATED PATIENT ON HOURLY ROUNDING, BED IN LOWEST POSITION, CALL LIGHT WITHIN REACH
[2019-11-20] MEDS: ATORVASTATIN 40 MG TAB PO SCH (20:30)
[2019-11-20] MEDS: INSULIN GLARGINE 100 UNITS/ML VIAL SQ SCH (20:48)
[2019-11-20] MEDS: CEFEPIME 1GM/NS 0.9% 50 ML 50 ML IV SCH (21:59)
[2019-11-20] MEDS ORDERED: CEFEPIME HCL 1 GM VIAL IV SCH (22:00)
[2019-11-21] VITALS (10 sets, daily range): BP systolic 124–176; BP diastolic 58–85
--- NOTE | 2019-11-21 02:26 | Consultation ---
DATE OF CONSULTATION: 11/20/2019 LOCATION: [facility]. REASON FOR CONSULTATION: To evaluate and assist in treating the patient with a suprapubic lesion with concern for abscess. Information is gathered from the current medical record. I interviewed the patient at the bedside. HISTORY OF PRESENT ILLNESS: He is a 59-year-old male with history significant for diabetes mellitus, hypertension, coronary artery disease, coronary artery stents, who was admitted to the hospital on November 19, 2019, with complaints of swelling in the right groin. He was reportedly seen in the emergency room and given clindamycin and Bactrim and sent home; he went to see his primary physician and was evaluated and it was thought that the lesion was getting worse, hence he was sent back to the hospital for further evaluation and treatment. There is note on the chart indicating that he had developed a rash with the antibiotics, but no fevers. The patient denies any trauma to the right groin, although he tells me that prior to the development of the swelling, he had taken bath with a sponge and is wondering whether he may have scratched the area too hard with the sponge and getting infected. He denies any dysuria or frequency. MEDICAL HISTORY: As reported above. He has peripheral arterial disease. There is history of diabetic foot ulcer. There is history of bronchopneumonia, subclinical hyperthyroidism, and glaucoma. There is history of vitreous hemorrhage on the left. There is history of hypertensive heart disease with cardiomegaly. He has had partial right great toe amputation in the past. There is history of coronary artery bypass grafting. He denies any history of chronic kidney disease, liver disease, myocardial infarction or CVA. He has CLL for which he has not received any specific treatment. SOCIAL HISTORY: He denies smoking. He has not drank alcohol in the years. He denies other forms of recreational drug use. FAMILY HISTORY: Positive for diabetes and hypertension. ALLERGIES: THERE IS REPORT OF ALLERGIES TO CLINDAMYCIN AND BACTRIM. MEDICATIONS: At the time of this evaluation, he is on treatment with vancomycin and Zosyn. The rest of his medications are per the medication administration report. REVIEW OF SYSTEMS: The patient is alert. His sensorium is clear. He appears nontoxic and is in no acute distress. He has no headache. No neck stiffness. No sore throat. No visual or auditory complaints currently. No chest or abdominal pain. No nausea, vomiting, or diarrhea. No frequency or dysuria. No hematuria. There is discomfort in the right groin/right scrotum. PHYSICAL EXAMINATION: GENERAL: He is an adult male. He is alert, responsive, coherent. He appears nontoxic and is in no acute distress. VITAL SIGNS: Maximum temperature since admission is 98.7 degrees Fahrenheit, most recent temperature 97.4 degrees Fahrenheit. He is hemodynamically stable. HEENT: He has no pallor. No icterus. No oropharyngeal lesions. NECK: Supple. CHEST: Symmetric. LUNGS: Clear. HEART: Sounds are regular without a significant murmur. ABDOMEN: Full, soft, nontender with normal bowel sounds. EXTREMITIES: There is no acute erythema of his extremities. : There is a thickened area in the right groin extending into the upper aspect of the right side of the scrotum. There are no obvious ulcers. There is mild tenderness to palpation. There is no urethral discharge. LABORATORY DATA: His white count on November 19, 2019, was 28.6 with his history of CLL. His hemoglobin 10.6, platelet count 186. Today, his white count is 11.6, hemoglobin 9.6, platelet count 152. His serum creatinine is 0.9. A urinalysis from November 19 showed a cloudy urine with proteinuria and glycosuria, nitrite negative, esterase negative, 6 to 10 rbc's, no wbc's with moderate bacteria. A urine culture from November 19 shows no growth so far. Blood cultures collected on November 19 so far showed no growth. CT of the abdomen and pelvis is reported with axillary, subpectoral, and inguinal lymphadenopathy concerning for lymphoma. There is a nonobstructive 2 mm left mid pole renal calculus with no hydronephrosis. There is diverticulosis without evidence of diverticulitis. An ultrasound is reported with a right groin soft tissue mass with increased vascularity thought to represent a chrissie mass or metastatic disease. There is no focal fluid collection. IMPRESSION: This 59-year-old male has a history of CLL. He has a right inguinal mass that does not have the consistency of an abscess. It feels like a cellulitis, but without obvious erythema or significant tenderness. Whether this is a manifestation of his CLL with lymphadenopathy is unclear. I suggest consider biopsy for histopathology. Continue coverage with vancomycin, discontinue Zosyn and start cefepime pending for evaluation. I have discussed the findings and plans with the patient at the bedside. I will discuss the patient with Dr. Orozco whom I thank for the consult and the opportunity to participate in the patient's care. MD MICHELLE Laureano/MEAGAN /[id number]
[2019-11-21] MEDS: VANCOMYCIN HCL 1.25 GM in SODIUM CHLORIDE 0.9% 250ML 250 ML IV SCH ×2 (03:50→14:48)
[2019-11-21] MEDS: CEFEPIME 1GM/NS 0.9% 50 ML 50 ML IV SCH ×3 (05:03→22:00)
[2019-11-21] MEDS: SODIUM CHLORIDE 0.9% 1000ML 1,000 ML IV SCH ×2 (05:12→21:50)
--- NOTE | 2019-11-21 06:47 | NUR ---
IM- progress note O/N see below REVIEW OF SYSTEMS: Denies any dizziness. Denies any fever, chills, sweats, nausea, vomiting, diarrhea, headache, chest pain, shortness of breath, back pain. PHYSICAL EXAMINATION VITAL SIGNS: Have been reviewed. GENERAL: tired appearing HEENT: Anicteric. left eye reduced vision CARDIOVASCULAR: Normal S1 and S2. LUNGS: mod bs ABDOMEN: Soft, nontender and nondistended. EXTREMITIES: He has right great toe partial amputated, well-healed. SKIN: Dry. PSYCHIATRIC: Flat affect. NEUROLOGICAL: Alert and oriented times 3. Moves all extremities. MUSCULOSKELETAL: He has a midchest wall scar. LABS: Reviewed. MEDICATIONS: Reviewed. ASSESSMENT: This is a 59yoM Right suprapubic abscess- iv vanco/zosyn; ID eval. Right suparpubic mass- lymphoma? in setting of CLL- may need bx vs excisional bx; check CTA; CLL- per hematology DM2- lipid/hba1c CAD with hx CABG PAD- cont ticagrelor Hypertensive heart ds Prop; scd; pepcid dispo: 11/21/19 [facility] normal; CT shows LAD; elevated WBC in CLL. cont IV abx; Sx consult for Bx of nodule/mass suprapubic region. Grant Orozco MD, PhD.
--- NOTE | 2019-11-21 07:22 | NUR ---
SBAR REPORT GIVEN TO MENDY ADLER, PATIENT SEEN AOX4, INGUINAL MASS EXAMINED BY MENDY ADLER DURING SHIFT REPORT, PT DENIES PAIN AT THIS TIME, PLAN OF CARE DISCUSSED WITH ONCOMING SHIFT RN, SHE WILL RESUME CARE
[2019-11-21] MEDS: INSULIN LISPRO 100 UNIT/1 ML 3ML VIAL SQ SCH ×4 (07:30→21:00)
[2019-11-21] MEDS: MORPHINE SULFATE INJ 4 MG/ML INJ 1ML IV PRN (12:40)
[2019-11-21] MEDS: ONDANSETRON HCL INJ 2MG/ML 2ML 2 MG/ML VIAL IV PRN (12:40)
--- NOTE | 2019-11-21 13:15 | NUR ---
Handoff report to Paul BROOKE made aware Dr. Kenyon Cordoba rounded to see patient and informed patient of lymph node measurements and from hematology/oncology, standpoint ok for patient to be discharged and follow up with patient's oncologist Dr. Do.
--- NOTE | 2019-11-21 14:52 | NUR ---
morphine discontinued per family request due to lethargy
--- NOTE | 2019-11-21 18:55 | Progress Note ---
DATE: 11/21/2019 SUBJECTIVE: The patient is alert and responsive. He is in no acute distress. He does not think that the antibiotics are making the difference in his right scrotal pain. He has told the family that he would like to have the lesion biopsied, at least this is what the daughter tells me. He is alert. He is lucid. He is not coughing. No dyspnea at rest. No report of vomiting or diarrhea. OBJECTIVE: VITAL SIGNS: In the past 24 hours, he has had temperature up to 99.7 degrees Fahrenheit. GENERAL: He is hemodynamically stable. HEENT: There is no pallor. No icterus. No oropharyngeal lesions. NECK: Supple. CHEST: Symmetric. LUNGS: Clear. HEART: Sounds are regular without any significant murmur. ABDOMEN: Full, soft, nontender with normal bowel sounds. : There is still an indurated area on the right side of his scrotum from the right inguinal area. No obvious ulcers. There is mild tenderness to palpation. There is no urethral discharge. LABORATORY DATA: His white count on November 20, 2019, was 11.6, hemoglobin 9.6, platelet count 152. Differentials on his white count showed 95% lymphocytes. His serum creatinine is 0.9. There are no significant positive cultures. A urine culture from November 19, 2019, shows no growth. Blood culture showed no growth. IMPRESSION: He has an indurated lesion running from the right inguinal area into the scrotal sac. The etiology is unclear. He has chronic lymphocytic leukemia. He had low-grade fevers in the past 12 hours. I suggest continue current antimicrobial coverage. I have discussed the patient with Dr. Orozco. Plan is to get Surgery evaluation to see if biopsy is feasible. MD MICHELLE Laureano/MESSIL /[id number]
--- NOTE | 2019-11-21 19:05 | NUR ---
Patient visited in room during nursing rounds. Patient alert and oriented x3. Ambulatory with standby assist prn. On scheduled IV antibiotics (Vancomycin and Maxipime). at bedside. Inguinal abscess noted particularly on right testicle area. Call gilliland within reach. Will monitor pt closely.
[2019-11-21] MEDS: INSULIN GLARGINE 100 UNITS/ML VIAL SQ SCH (21:00)
[2019-11-21] MEDS: ATORVASTATIN 40 MG TAB PO SCH (21:50)
[2019-11-22] VITALS (8 sets, daily range): BP systolic 137–169; BP diastolic 59–79
[2019-11-22] MEDS: VANCOMYCIN HCL 1.25 GM in SODIUM CHLORIDE 0.9% 250ML 250 ML IV SCH ×2 (03:00→15:00)
[2019-11-22] MEDS: SODIUM CHLORIDE 0.9% 1000ML 1,000 ML IV SCH ×2 (05:55→18:11)
[2019-11-22] MEDS: CEFEPIME 1GM/NS 0.9% 50 ML 50 ML IV SCH ×3 (06:09→22:00)
--- NOTE | 2019-11-22 06:40 | NUR ---
IM- progress note O/N see below REVIEW OF SYSTEMS: Denies any dizziness. Denies any fever, chills, sweats, nausea, vomiting, diarrhea, headache, chest pain, shortness of breath, back pain. PHYSICAL EXAMINATION VITAL SIGNS: Have been reviewed. GENERAL: tired appearing HEENT: Anicteric. left eye reduced vision CARDIOVASCULAR: Normal S1 and S2. LUNGS: mod bs ABDOMEN: Soft, nontender and nondistended. EXTREMITIES: He has right great toe partial amputated, well-healed. SKIN: Dry. PSYCHIATRIC: Flat affect. NEUROLOGICAL: Alert and oriented times 3. Moves all extremities. MUSCULOSKELETAL: He has a midchest wall scar. LABS: Reviewed. MEDICATIONS: Reviewed. ASSESSMENT: This is a 59yoM Right suprapubic abscess- iv vanco/zosyn; ID eval. Right suparpubic mass- lymphoma? in setting of CLL- may need bx vs excisional bx; check CTA; CLL- per hematology DM2- lipid/hba1c CAD with hx CABG PAD- cont ticagrelor Hypertensive heart ds Prop; scd; pepcid dispo: 11/21/19 [facility] normal; CT shows LAD; elevated WBC in CLL. cont IV abx; Sx consult for Bx of nodule/mass suprapubic region. 11/22 check CBC; await bx, then d/c home. Grant Orozco MD, PhD.
[2019-11-22 07:08] LABS: HEMATOCRIT 33.1 % (38.2-49.6); HEMOGLOBIN 10.2 g/dL (14.0-18.0); LYMPHOCYTES # (AUTO) 114.1 (1.0-3.2); LYMPHOCYTES % 95.9 % (18.0-39.1); MEAN CORPUSCULAR HEMOGLOBIN 32.6 pg (28-32); MEAN CORPUSCULAR HGB CONC 30.8 g/dL (31-35); MEAN CORPUSCULAR VOLUME 105.8 fL (81-99); MONOCYTES # (AUTO) 1.9 (0.2-0.8); MONOCYTES % 1.6 % (4.4-11.3); NEUTROPHILS # (AUTO) 2.8 (2.1-6.9); NEUTROPHILS % 2.4 % (38.7-80.0); PLATELET COUNT 155 x10e3/uL (140-360); RED BLOOD COUNT 3.13 x10e6/uL (4.3-5.7); RED CELL DISTRIBUTION WIDTH 16.1 % (11.7-14.4)
[2019-11-22 08:10] LABS: LYMPHOCYTES % (MANUAL) 91 % (19-48); MONOCYTES % (MANUAL) 5 % (3.4-9.0); NEUTROPHILS % (MANUAL) 4 % (40-74)
[2019-11-22] MEDS: INSULIN LISPRO 100 UNIT/1 ML 3ML VIAL SQ SCH ×4 (08:48→21:00)
[2019-11-22] MEDS: ACETAMINOPHEN 325 MG TAB PO PRN (08:52)
--- NOTE | 2019-11-22 19:05 | NUR ---
Patient visited in room during nursing rounds. Patient alert and oriented x3. Ambulatory with standby assist prn. On scheduled IV antibiotics (Vancomycin and Maxipime). at bedside. Inguinal abscess noted particularly on right groin area. Pt aware for plans of I&D of right groin abscess tomorrow. Call gilliland within reach. Will monitor pt closely.
--- NOTE | 2019-11-22 20:48 | NUR ---
Spoke with Dr. Varma on the phone and MD confirmed he will be performing procedure (I&D of right groin abscess) tomorrow possibly at bedside. Drainage kit obtained and left at bedside for MD use tomorrow. Pt to be kept NPO at midnight tonight. stated he will possibly perform procedure between 0730 and 0800.
[2019-11-22] MEDS: INSULIN GLARGINE 100 UNITS/ML VIAL SQ SCH (22:00)
[2019-11-22] MEDS: ATORVASTATIN 40 MG TAB PO SCH (22:00)
--- NOTE | 2019-11-22 22:05 | NUR ---
Explained to patient and patient's (at bedside) about scheduled procedure (Incision and drainage of right groin abscess) for tomorrow (11/23/19) by Dr. Varma. signed consent form on behalf of patient.
[2019-11-23] VITALS (9 sets, daily range): BP systolic 128–167; BP diastolic 62–81
[2019-11-23] MEDS: VANCOMYCIN HCL 1.25 GM in SODIUM CHLORIDE 0.9% 250ML 250 ML IV SCH ×2 (03:00→15:57)
[2019-11-23] MEDS: CEFEPIME 1GM/NS 0.9% 50 ML 50 ML IV SCH ×3 (05:55→23:00)
--- NOTE | 2019-11-23 06:49 | NUR ---
IM- progress note O/N see below REVIEW OF SYSTEMS: Denies any dizziness. Denies any fever, chills, sweats, nausea, vomiting, diarrhea, headache, chest pain, shortness of breath, back pain. PHYSICAL EXAMINATION VITAL SIGNS: Have been reviewed. GENERAL: tired appearing HEENT: Anicteric. left eye reduced vision CARDIOVASCULAR: Normal S1 and S2. LUNGS: mod bs ABDOMEN: Soft, nontender and nondistended. EXTREMITIES: He has right great toe partial amputated, well-healed. SKIN: Dry. PSYCHIATRIC: Flat affect. NEUROLOGICAL: Alert and oriented times 3. Moves all extremities. MUSCULOSKELETAL: He has a midchest wall scar. LABS: Reviewed. MEDICATIONS: Reviewed. ASSESSMENT: This is a 59yoM Right suprapubic abscess- iv vanco/zosyn; ID eval. Right suparpubic mass- lymphoma? in setting of CLL- may need bx vs excisional bx; check CTA; CLL- per hematology DM2- lipid/hba1c CAD with hx CABG PAD- cont ticagrelor Hypertensive heart ds Prop; scd; pepcid dispo: 11/21/19 [facility] normal; CT shows LAD; elevated WBC in CLL. cont IV abx; Sx consult for Bx of nodule/mass suprapubic region. 11/22 check CBC; await bx, then d/c home. 11/23 all cx negative; Possible d/c today after bx Grant Orozco MD, PhD.
--- NOTE | 2019-11-23 07:20 | NUR ---
The pt. was received from the off-going nurse at bedside rounding. The pt. is maintained on n p o status for surgery this morning. It is reported that the procedure will either be done at bedside or in the O. R.
[2019-11-23] MEDS: INSULIN LISPRO 100 UNIT/1 ML 3ML VIAL SQ SCH ×4 (07:30→20:50)
--- NOTE | 2019-11-23 08:15 | NUR ---
Dr. Varma called in the ask if the pt. is oppose to the procedure being done at bedside and he was advised that the pt. reports that he prefers O. R. intervention.
[2019-11-23] MEDS: SODIUM CHLORIDE 0.9% 1000ML 1,000 ML IV SCH (11:33)
[2019-11-23] MEDS ORDERED: BUPIVACAINE HCL 0.5% INJ 30 ML VIAL INJ ONE (13:41)
[2019-11-23] MEDS ORDERED: BUPIVACAINE 0.5%/EPI 30 ML SDV INJ ONE (13:41)
[2019-11-23] MEDS ORDERED: PROPOFOL IV EMULSION 10 MG/ML 20 ML VIAL ONE (14:35)
[2019-11-23] MEDS ORDERED: LIDOCAINE HCL 2% LOCAL INJ 5 ML SDV VIAL INJ ONE (14:35)
[2019-11-23] MEDS ORDERED: KETOROLAC TROMETHAMINE 30 MG/ML VIAL ONE (14:35)
[2019-11-23] MEDS ORDERED: ONDANSETRON HCL INJ 2MG/ML 2ML 2 MG/ML VIAL ONE (14:35)
--- NOTE | 2019-11-23 15:00 | NUR ---
The pt. returned from surgery in stable condition with iv fluids infusing and clean dressing intact. The pt. was reconnected to the iv pump and scheduled antibiotics were hung.
[2019-11-23] MEDS ORDERED: MIDAZOLAM HCL 2 MG/2 ML VIAL ONE (16:00)
--- NOTE | 2019-11-23 16:07 | NUR ---
A call was placed to Dr. Varma for orders regarding dispensation.
--- NOTE | 2019-11-23 16:49 | NUR ---
Dr. Fatima notified of the pt's d/c status and he is yet to round.
[2019-11-23] MEDS: ATORVASTATIN 40 MG TAB PO SCH (20:50)
[2019-11-23] MEDS: INSULIN GLARGINE 100 UNITS/ML VIAL SQ SCH (20:52)
--- NOTE | 2019-11-23 21:17 | Consultation ---
DATE OF CONSULTATION: 11/23/2019 CHIEF COMPLAINT: Right suprapubic mass. HISTORY OF PRESENT ILLNESS: The patient is a 59-year-old male with known history of CLL, presenting to the emergency room with 1-week history of right groin, suprapubic swelling and tenderness. No fever, chills, or diarrhea. The patient denied history of trauma or insect bite. PAST MEDICAL HISTORY: Positive for CLL, coronary artery disease, hypertension, diabetes. PAST SURGICAL HISTORY: Positive for coronary artery stenting. SOCIAL HABITS: The patient denies smoking or alcohol abuse. REVIEW OF SYSTEMS: He has not received chemotherapy for the CLL. ALLERGIES: THE PATIENT IS ALLERGIC TO BACTRIM AND CLINDAMYCIN. PHYSICAL EXAMINATION: VITAL SIGNS: Stable, he was afebrile. GENERAL: He is awake, alert, in mild discomfort. HEENT: Sclerae nonicteric. NECK: Supple. LUNGS: Clear. HEART: Regular rate and rhythm. ABDOMEN: Soft. EXTREMITIES: No cyanosis or edema. Right groin area revealed induration and tenderness with some fluctuance. LABORATORY DATA: White cell count 108, hemoglobin of 10, platelet count 155. CT of the abdomen show multiple axillary inguinal lymphadenopathy suggestive of lymphoma. Ultrasound of the right groin showed mass with possible metastatic disease. ASSESSMENT: Right groin mass. PLAN: Excisional biopsy under anesthesia. Attendant risks discussed. Eagle Varma MD DNChristina/MODL /[id number]
--- NOTE | 2019-11-23 21:26 | Operative Report ---
DATE OF PROCEDURE: 11/23/2019 SURGEON: Eagle Varma MD PREOPERATIVE DIAGNOSIS: Right groin mass. POSTOPERATIVE DIAGNOSIS: Right groin abscess. PROCEDURE: Incision and drainage of right groin abscess. ANESTHESIA: Monitored sedation. INDICATION FOR SURGERY: A 59-year-old male with history of right inguinal mass for one week duration. The patient consented for incisional possible biopsy of the mass. PROCEDURE FINDINGS: Large abscess in the right inguinal region. DESCRIPTION OF THE PROCEDURE: The patient was brought to the OR and placed supine position. The right groin area prepped with alcohol and draped in sterile fashion. The area of induration and swelling is injected with 0.5% Marcaine with epinephrine on the surface. We then made a cruciate incision approximately 2 x 2 cm into the mass, draining a large amount of purulent material. Swab specimen obtained for culture and sensitivity, and the cavity approximately 3 x 4 cm in the right groin is irrigated and packed with iodoform gauze, tied for hemostasis, which is achieved. Dressing applied with 4 x 4. The patient is then awakened from anesthesia. ESTIMATED BLOOD LOSS: 3 mL. Eagle Varma MD DNL/MODL /[id number]
--- NOTE | 2019-11-23 23:18 | NUR ---
RN ask patient to assess post surgical site but patient refused.
[2019-11-24] MEDS: SODIUM CHLORIDE 0.9% 1000ML 1,000 ML IV SCH ×2 (00:53→03:00)
[2019-11-24] MEDS: VANCOMYCIN HCL 1.25 GM in SODIUM CHLORIDE 0.9% 250ML 250 ML IV SCH (03:13)
[2019-11-24 04:05] VITALS: BP 153/81
[2019-11-24] MEDS: CEFEPIME 1GM/NS 0.9% 50 ML 50 ML IV SCH (06:15)
--- NOTE | 2019-11-24 06:52 | NUR ---
RECEIVED BEDSIDE SHIFT REPORT FROM OFF GOING NURSE. PATIENT IS RESTING IN BED, NO ACUTE DISTRESS NOTED. FAMILY AT BESIDE. CALL LIGHT WITHIN REACH. BED IN THE LOWEST POSITION.
--- NOTE | 2019-11-24 07:05 | NUR ---
D/C summary Principal dx: Right suprapubic abscess- iv vanco/zosyn; ID eval. Right suparpubic mass- lymphoma? in setting of CLL- may need bx vs excisional bx; check CTA; Secondary dx: CLL- per hematology DM2- lipid/hba1c CAD with hx CABG PAD- cont ticagrelor Hypertensive heart ds Prop; scd; pepcid dispo: 11/21/19 [facility] normal; CT shows LAD; elevated WBC in CLL. cont IV abx; Sx consult for Bx of nodule/mass suprapubic region. 11/22 check CBC; await bx, then d/c home. 11/23 all cx negative; Possible d/c today after bx 11/24 s/p I&D of suprapubic abscess; cont antibiotics; f/u cx; d/c planning; d/c home stable f/u pcp 1 week and oncologist as directed d/c>35mins Grant Orozco MD, PhD.
[2019-11-24 07:25] VITALS: BP 146/72
[2019-11-24] MEDS: INSULIN LISPRO 100 UNIT/1 ML 3ML VIAL SQ SCH ×2 (08:48→11:30)
[2019-11-24 08:51] VITALS: BP 146/72
[2019-11-24 11:13] VITALS: BP 157/73
--- NOTE | 2019-11-24 13:15 | NUR ---
RECEIVED DISCHARGE ORDER FROM MD. PATIENT IS IN STABLE CONDITION. IV LINE TO LEFT FOREARM AND LEFT ANTECUBITAL DISCONTINUED WITH TIP INTACT, PRESSURE APPLIED TO SITE, NO BLEEDING NOTED. DISCHARGE TEACHING PROVIDED TO PATIENT AND , THEY BOTH VERBALIZED UNDERSTANDING. DISCHARGE PAPERWORK WITH PRESCRIPTIONS ON HAND. PATIENT ACCOMPANIED TO PRIVATE AUTO VIA WHEELCHAIR BY STAFF.
--- NOTE | 2019-11-24 13:39 | Progress Note ---
DATE: 11/23/2019 SUBJECTIVE: The patient is resting comfortably. He is in no acute distress. He is anticipating I and D of the right groin/scrotal lesion. No report of nausea, vomiting, or diarrhea. No fevers. No other systemic complaints reported. OBJECTIVE: VITAL SIGNS: In the previous 24 hours, he had temperatures up to 98.4 degrees Fahrenheit. GENERAL: He is hemodynamically stable. HEENT: He has no pallor. There is no icterus. No oropharyngeal lesions. NECK: Supple. CHEST: Symmetric. LUNGS: Clear. HEART: Sounds are regular. There is no new murmur. ABDOMEN: Soft and nontender. Bowel sounds are normal. EXTREMITIES: No acute erythema of the extremities. : The lesion involving the right groin and scrotal skin is unchanged. LABORATORY DATA: November 22, his white count 118.9, hemoglobin 10.2, and platelet count 155. Differential show 95% lymphocytes. He has CLL. His serum creatinine on November 20, 0.9. There are no new positive culture reports. IMPRESSION: He has a lesion in the right groin and scrotum. He is being seen by Surgery. He is being considered for possible biopsy/drainage. I suggest continue his antibiotics. Follow up on cultures that may be sent. Continue other supportive care. MD MICHELLE Laureano/MEAGAN /[id number]
--- NOTE | 2019-11-24 13:44 | Progress Note ---
DATE: 11/24/2019 SUBJECTIVE: The patient is alert and responsive. He is in no acute distress. He is not complaining of much pain. No nausea, vomiting, or diarrhea. No other systemic complaints reported. OBJECTIVE: VITAL SIGNS: Overnight, he had temperatures up to 99.8 degrees Fahrenheit. His most recent temperature is 97.9. GENERAL: He is hemodynamically stable. HEENT: He has no pallor. There is no icterus. No oropharyngeal lesions. NECK: Supple. CHEST: Symmetric. LUNGS: Clear. HEART: Sounds are regular. There is no new murmur. ABDOMEN: Soft and nontender. Bowel sounds are normal. The right groin dressing is intact and clean. LABORATORY DATA: His white count on November 22 was 118.9, hemoglobin 10.2, and platelet count 155. Differential showed 95% lymphocytes. His serum creatinine on November 20 was 0.9. The culture from the right groin site Gram stain is showing moderate wbc's, moderate gram-positive cocci in pairs. Few gram-positive rods. Cultures reported negative at 24 hours. IMPRESSION: He has had I and D of the right groin/scrotal abscess. Culture is in progress. He has chronic lymphocytic leukemia. He is currently afebrile. He wants to go home. He is aware that we do not have the full culture report. I suggest he can be discharged on doxycycline and ciprofloxacin for 10 more days of treatment with close outpatient followup. I have advised the patient to contact his primary physician if he develops fevers, increasing pain, or intolerance to the oral antibiotic, so that he may check back into hospital to get on IV antibiotic giving his immunocompromised state. I discussed the findings and plans with the patient at the bedside along with his and nursing care of the patient. MD MICHELLE Laureano/MEAGAN /[id number]
--- NOTE | 2019-11-24 17:40 | Consultation ---
DATE OF CONSULTATION: 11/20/[address] Grant Orozco. HISTORY OF PRESENT ILLNESS: Mr. Antoine is a 59-year-old male, who has been referred to me for evaluation of a high white count. The patient had presented with a right groin node. HISTORY OF PAST ILLNESS: History of CLL, SLL. SOCIAL HISTORY: None. FAMILY HISTORY: Noncontributory. ALLERGIES: REPORTED NONE. MEDICATIONS: At this time: 1. Zosyn. 2. Vancomycin. 3. Ondansetron. 4. Insulin. 5. Atorvastatin. REVIEW OF SYSTEMS: HEENT: Normal. CARDIAC: Normal. RESPIRATORY: Normal. GI: Normal. : Normal. MUSCULOSKELETAL: Normal. SKIN AND BREASTS: Normal. NEUROENDOCRINE: History of diabetes. HEMATOLOGIC: History of chronic lymphatic leukemia, not treated so far. However, Dr. Nkechi Arango, a card cleaner oncologist has been following this patient. PHYSICAL EXAMINATION: GENERAL: A moderately built male, anemic. No palpable adenopathy. HEART: Within normal limits. LUNGS: Clear. ABDOMEN: Soft. RECTAL: Deferred. CENTRAL NERVOUS SYSTEM: Essentially normal. EXTREMITIES: Essentially normal. IMAGING DATA: The patient has a right groin node 2.3 x 0.8 x 2.1 cm by CAT scan. LABORATORY DATA: Lab shows a hemoglobin of 9.6, hematocrit of 32.1, normal indices with a white count of 116,000, platelets of 152,000. Sodium 140, potassium 4.2, chloride 106, CO2 27, BUN 16, creatinine 0.9, bilirubin 0.5, SGOT 13, SGPT 14, and alkaline phosphatase 76. IMPRESSION: 1. CLL, SLL stage IV. 2. Myelophthisic anemia. 3. Diabetes mellitus. 4. Hypoproteinemia. 5. Hypoalbuminemia. 6. Right groin node part of CLL, SLL. PLAN, COMMENTS AND SUGGESTIONS: As part of workup suggest CT of the chest, CT of the abdomen and pelvis. LDH. The patient had the right inguinal node biopsy. The patient is going to be discharged. I will be more than happy to follow this patient if the attending would call and make an appointment with me. The patient's wanted a 2nd opinion, I have given the 2nd opinion, they will make up their mind if they want to stay with Dr. Nkechi Arango or have a followup with me. MD JHONY Joseph/MEAGAN /[id number] cc: Grant Orozco MD
== END 2019-11-24 13:51 | disposition home or self-care (01) | DRG 821 ==
LOC: ER 13:49 → ERHOLD 14:18 → MED/SURG3 22:56
PROVIDERS: ADMIT Internal Medicine; ATTEND Internal Medicine
PROC: 0Y950ZX Drainage of Right Inguinal Region, Open Approach, Diagnostic (ICD-10-PCS; principal; 2019-11-23 11:30)
DX: C91.10 Chronic lymphocytic leukemia of B-cell type not having achieved remission (principal); L02.214 Cutaneous abscess of groin; D61.82 Myelophthisis; E11.9 Type 2 diabetes mellitus without complications; I25.10 Atherosclerotic heart disease of native coronary artery without angina pectoris; R19.03 Right lower quadrant abdominal swelling, mass and lump; E78.5 Hyperlipidemia, unspecified; R59.1 Generalized enlarged lymph nodes; I11.0 Hypertensive heart disease with heart failure; I73.9 Peripheral vascular disease, unspecified; Z88.1 Allergy status to other antibiotic agents; Z88.2 Allergy status to sulfonamides; Z88.8 Allergy status to other drugs, medicaments and biological substances; Z95.1 Presence of aortocoronary bypass graft; Z83.3 Family history of diabetes mellitus; Z82.49 Family history of ischemic heart disease and other diseases of the circulatory system; E77.8 Other disorders of glycoprotein metabolism; E88.09 Other disorders of plasma-protein metabolism, not elsewhere classified; Z79.82 Long term (current) use of aspirin; Z79.4 Long term (current) use of insulin
CPT/HCPCS: 36415; 71260; 74177; 76882; 80053; 80202; 81001; 82550; 82553; 82948; 83615; 84484; 85025; 85610; 85730; 87040; 87071; 87075; 87086; 87205; 93005; 96372; 99284; J0692; J1815; J1885; J2001; J2250; J2270; J2405; J2543; J3370; J7030; J7050; Q9967

== ENCOUNTER 2020-01-31 11:53 | Observation (INO) | payer BC ==
[~2020-01-31] VITALS: Ht 188 cm; Wt 90.7 kg
--- OUTSIDE RECORDS SUMMARY | 2020-01-31 11:56 | XMS REPORT ---
[facility] Address Unknown Phone Unavailable Care Team Providers Care Cuff Turner Name Role Phone THIERNO GUTIERREZ, VU PP GRANT PATTEN Unavailable Unavailable Sheridan RODRIGUEZ Unavailable Unavailable Bonita YOUNG Unavailable Unavailable Payers Payer Name Policy Type Policy Number Effective Date Expiration Date [employer] [place] [id number] 2015 00:00:00 [employer] [place] [id number] 2018 00:00:00 [employer] [place] [id number] 2018 00:00:00 [employer] [place] [id number] Problems Condition Name Condition Details Condition Category Status Onset Date Resolution Date Last Treatment Date Treating Clinician Comments Chronic lymphocytic leukemia CLL (chronic lymphocytic leukemia) Problem Active Pneumonia Pneumonia Problem Active Abscess of groin Inguinal abscess Problem Active Allergies, Adverse Reactions, Alerts Allergy Name Allergy Type Status Severity Reaction(s) Onset Date Inactive Date Treating Clinician Comments Clindamycin Allergy to Substance Active Severe RASH 2019-11-19 00:00:00 Sulfamethoxazole Allergy to Substance Active Moderate RASH 2019-11-19 00:00:00 Trimethoprim Allergy to Substance Active Moderate RASH 2019-11-19 00:00:00 Medications Ordered Medication Name Filled Medication Name Start Date Stop Date Current Medication? Ordering Clinician Indication Dosage Frequency Signature (SIG) Comments Components Benzonatate (Tessalon Perle) 100 Mg Capsule Benzonatate (Tessalon Perle) 100 Mg Capsule 2019-05-27 00:00:00 Yes Grant Patten Md 100 Three Times A Day Guaifenesin/Dextromethorphan (Mucinex Dm Er 600-30 Mg Tablet) 1 Each Tab.er.12h Guaifenesin/Dextromethorphan (Mucinex Dm Er 600-30 Mg Tablet) 1 Each Tab.er.12h 2019-05-27 00:00:00 Yes Grant Patten Md 1 Every 8 Hours Levofloxacin (Levaquin) 500 Mg Tablet, 500 Mg Oral Levofloxacin (Levaquin) 500 Mg Tablet, 500 Mg Oral 2019-05-27 00:00:00 2019-11-23 00:00:00 No Grant Patten Md 500 Daily Aspirin (Aspirin Ec) 81 Mg Tablet. Aspirin (Aspirin Ec) 81 Mg Tablet. 2018-10-05 00:00:00 Yes Grant Patten Md 81 Every Morning Ticagrelor (Brilinta) 90 Mg Tablet Ticagrelor (Brilinta) 90 Mg Tablet 2018-10-05 00:00:00 Yes Grant Patten Md 90 Twice A Day Atorvastatin Calcium (Lipitor) 20 Mg Tablet Atorvastatin Calcium (Lipitor) 20 Mg Tablet 2018-10-03 00:00:00 Yes Grant Patten Md 40 Bedtime Famotidine 20 Mg Tab Famotidine 20 Mg Tab 2018-10-03 00:00:00 Yes Grant Patten Md 20 Every 12 Hours Insulin Aspart (Novolog) 100 Unit/1 Ml Cartridge Insulin Aspart (Novolog) 100 Unit/1 Ml Cartridge Yes 8 Three Times A Day Insulin Aspart (Novolog) 100 Unit/1 Ml Cartridge Insulin Aspart (Novolog) 100 Unit/1 Ml Cartridge Yes 2 Three Times A Day as needed for High Blood Sugar Insulin Detemir (Levemir) 100 Unit/1 Ml Vial Insulin Detemir (Levemir) 100 Unit/1 Ml Vial Yes 15 Bedtime Procedures and Interventions Procedure Date / Time Performed Performing Clinician Incision and drainage 2019-11-23 00:00:00 RUEL CORRALES Computed tomography of abdomen and pelvis with contrast 2019-11-20 00:00:00 CORY BROWN Computed tomography of chest with contrast 2019-11-20 00:00:00 CORY BROWN Limited non-vascular ultrasound of extremity 2019-11-19 00:00:00 NOLBERTO RODRIGUEZ Encounters Start Date/Time End Date/Time Encounter Type Admission Type Attending [facility] Facility Care Department Encounter ID 2019-11-19 14:18:00 2019-11-24 13:51:00 Discharged Inpatient 1 SANDOR GRANT [facility] [id number] 2019-11-16 13:26:00 2019-11-16 14:43:00 Departed Emergency Room [facility] [id number] 2019-05-23 19:59:00 2019-05-27 11:03:00 Discharged Inpatient 1 NOLBERTO RODRIGUEZ [facility] [id number] 2018-10-01 11:51:00 2018-10-05 13:16:00 Discharged Inpatient 1 PRAKASH YOUNG [facility] [id number] Results Test Description Test Time Test Comments Text Results Atomic Results Result Comments Bedside Glucose 2019-11-24 11:10:00 Bedside Glucose (test nixb=97499-7) 78 70-120 Meter ID: [id number] Obpddml8495-45-09 14:50:00* Test Item Value Reference Range Comments Blood Culture (test jwov=82191149) NO GROWTH AFTER 72 HOURS Vancomycin Level Wwdtcf8812-46-07 14:35:00* Test Item Value Reference Range Comments Vancomycin Level Trough (test ksfv=3437-4) 10.7 5.0-10.0 Results repeated and called to Javier Can at 1433 on 11/22/19 by Soila perales and Didi Lackey. Read back and verified.Differential Total Cells Eooibus7838-32-74 08:10:00* Test Item Value Reference Range Comments Differential Total Cells Counted (test code=Differential Total Cells Counted) 100 Neutrophils % (Manual)2019-11-22 08:10:00* Test Item Value Reference Range Comments Neutrophils % (Manual) (test ykqu=96346-1) 4 40-74 Lymphocytes % (Manual)2019-11-22 08:10:00* Test Item Value Reference Range Comments Lymphocytes % (Manual) (test wceb=021-7) 91 19-48 Monocytes % (Manual)2019-11-22 08:10:00* Test Item Value Reference Range Comments Monocytes % (Manual) (test tktz=494-1) 5 3.4-9.0 White Blood Rqjxw5753-42-28 07:20:00* Test Item Value Reference Range Comments White Blood Count (test tsot=1075-4) 118.94 4.8-10.8 Results called to JAVIER CAN at 0718 on 11/22/19 by Wale Dodson. RB OK. Red Blood Ekpcr3781-38-67 07:20:00* Test Item Value Reference Range Comments Red Blood Count (test jxwl=449-8) 3.13 4.3-5.7 Ayzeredppn3210-79-15 07:20:00* Test Item Value Reference Range Comments Hemoglobin (test eaim=77115-4) 10.2 14.0-18.0 Onpfnionpl6706-59-74 07:20:00* Test Item Value Reference Range Comments Hematocrit (test csgz=4819-3) 33.1 38.2-49.6 Mean Corpuscular Eeokty6393-02-79 07:20:00* Test Item Value Reference Range Comments Mean Corpuscular Volume (test krca=712-8) 105.8 81-99 Mean Corpuscular Rcolgpmpjm9070-95-95 07:20:00* Test Item Value Reference Range Comments Mean Corpuscular Hemoglobin (test zkhy=517-5) 32.6 28-32 Mean Corpuscular Hemoglobin Hiztomc9437-43-15 07:20:00* Test Item Value Reference Range Comments Mean Corpuscular Hemoglobin Concent (test mady=421-6) 30.8 31-35 Red Cell Distribution Werqr9141-58-99 07:20:00* Test Item Value Reference Range Comments Red Cell Distribution Width (test lotn=26818-7) 16.1 11.7-14.4 Platelet Ooezf1244-92-63 07:20:00* Test Item Value Reference Range Comments Platelet Count (test uuok=188-9) 155 140-360 Neutrophils (%) (Auto)2019-11-22 07:20:00* Test Item Value Reference Range Comments Neutrophils (%) (Auto) (test jbdj=84071-2) 2.4 38.7-80.0 Lymphocytes (%) (Auto)2019-11-22 07:20:00* Test Item Value Reference Range Comments Lymphocytes (%) (Auto) (test dyst=455-9) 95.9 18.0-39.1 Monocytes (%) (Auto)2019-11-22 07:20:00* Test Item Value Reference Range Comments Monocytes (%) (Auto) (test wfrz=5172-4) 1.6 4.4-11.3 Eosinophils (%) (Auto)2019-11-22 07:20:00* Test Item Value Reference Range Comments Eosinophils (%) (Auto) (test bcvd=821-5) 0.0 0.0-6.0 Basophils (%) (Auto)2019-11-22 07:20:00* Test Item Value Reference Range Comments Basophils (%) (Auto) (test qocc=666-8) 0.0 0.0-1.0 IM GRANULOCYTES %2019-11-22 07:20:00* Test Item Value Reference Range Comments IM GRANULOCYTES % (test code=IM GRANULOCYTES %) 0.1 0.0-1.0 Neutrophils # (Auto)2019-11-22 07:20:00* Test Item Value Reference Range Comments Neutrophils # (Auto) (test ffrk=734-2) 2.8 2.1-6.9 Lymphocytes # (Auto)2019-11-22 07:20:00* Test Item Value Reference Range Comments Lymphocytes # (Auto) (test zmzp=94092-5) 114.1 1.0-3.2 Monocytes # (Auto)2019-11-22 07:20:00* Test Item Value Reference Range Comments Monocytes # (Auto) (test xvly=399-1) 1.9 0.2-0.8 Eosinophils # (Auto)2019-11-22 07:20:00* Test Item Value Reference Range Comments Eosinophils # (Auto) (test yrdn=694-3) 0.0 0.0-0.4 Basophils # (Auto)2019-11-22 07:20:00* Test Item Value Reference Range Comments Basophils # (Auto) (test begb=878-2) 0.0 0.0-0.1 Absolute Immature Granulocyte (roij9499-72-47 07:20:00* Test Item Value Reference Range Comments Absolute Immature Granulocyte (auto (test code=Absolute Immature Granulocyte (auto) 0.11 0-0.1 CT ABDOMEN/PELVIS Y5391-20-65 12:22:00 [place] [address] Patient Name: GABRIEL UMANA MR #: [id number] : 1960 Age/Sex: 59/M Req #: [id number] Adm Physician: GRANT PATTEN MD Ordered by: CORY BROWN MD Report #: [id number] Location: MED/SURG3 Room/Bed: [facility] Procedure: 0204-[address]/CT ABDOMEN/PELVIS W Exam Date: 11/20/19 Exam Ti me: 1048 REPORT STATUS: Signed E XAM: CT Chest, Abdomen and Pelvis WITH intravenous contrast INDICATION: L ymphoma COMPARISON: None. TECHNIQUE: The chest, abdomen and pelvis wer e scanned utilizing a multidetector helical scanner from the thoracic inlet to the pubic symphysis following administration of IV contrast. Coronal and sagi ttal reformations were obtained. Scan was performed during portal venous phase . IV CONTRAST: 100cc Isovue 370 ORAL CONTRAST: Water COMPLICATIONS: None RADIATION DOSE: Total DLP: 982.2 mGy*cm Dose modulation, iterative reconstruction, and/or weight based adjustment of the m A/kV was utilized to reduce the radiation dose to as low as reasonably achieva ble. FINDINGS: LINES/ TUBES: None. LUNGS AND AIRWAYS: The central airways are patent. No focal consolidation or pulmonary edema. Left lower lobe dependent subsegmental atelectasis. No suspicious pulmonary nodules. PL EURA: The pleural spaces are clear. HEART AND MEDIASTINUM: The thyroid glan d is normal. Bilateral axillary and subpectoral lymphadenopathy, measuring up to 2.3 x 1.6 cm on the right and 1.9 x 1.5 cm on the left. No mediastinal lym phadenopathy. The heart is not enlarged. No pericardial effusion. No central p ulmonary embolism. Diffuse atherosclerotic coronary artery calcifications. HEPATOBILIARY: No focal hepatic lesions. No biliary ductal dilatation. The gallbladder appears unremarkable. SPLEEN: No splenomegaly. PANCREAS: No focal masses or ductal dilatation. ADRENALS: No adrenal nodules. KIDN EYS/URETERS: Nonobstructive 2 mm left midpole renal calculi. No hydronephrosis . No hydroureter. PELVIC ORGANS/BLADDER: Unremarkable. PERITONEUM / RETRO PERITONEUM: No free air or fluid. LYMPH NODES: No lymphadenopathy. VESSELS: Scattered atherosclerotic calcifications of the nonaneurysmal abdominal aorta and major branches. GI TRACT: Diverticulosis without CT evidence of diverti culitis. No abnormal bowel thickening. No bowel obstruction. Normal appendix. BONES AND SOFT TISSUES: Enlarged inguinal lymph nodes measuring up to 2.0 x 1.2 cm on the right. No acute osseous injury. No suspicious lytic or blastic lesions. Mild degenerative changes of the visualized spine. Sternotomy wires intact. IMPRESSION: Axillary, subpectoral, and inguinal lymphadenopathy, concerning for lymphoma. Nonobstructive 2 mm left midpole renal calculus. No hydronephrosis. Diverticulosis without CT evidence of diverticulitis. Signed by: Yves Hill MD on 11/20/2019 12:36 PM Dictated By: YVES HILL MD 1236 Transcribed By: NICOLE on 11/20/19 1236 COPY TO: CORY BROWN MD CT CHEST [id number] 12:22:00 [facility] [address], [place] [address] Patient Name: GABRIEL UMANA MR #: [id number] : 1960 Age/Sex: 59/M Req #: [id number] Adm Physician: GRANT PATTEN MD Ordered by: CORY BROWN MD Report #: [id number] Location: MED/SURG3 Room/Bed: [facility] Procedure: 0204-[address]/CT CHEST W Exam Date: 11/20/19 Exam Time: 1048 REPORT STATUS: Signed EXAM: CT C hest, Abdomen and Pelvis WITH intravenous contrast INDICATION: Lymphoma COMPARISON: None. TECHNIQUE: The chest, abdomen and pelvis were scanned utilizing a multidetector helical scanner from the thoracic inlet to the pubic symphysis following administration of IV contrast. Coronal and sagittal refo rmations were obtained. Scan was performed during portal venous phase. IV CONTRAST: 100cc Isovue 370 ORAL CONTRAST: Water COMPLI CATIONS: None RADIATION DOSE: Total DLP: 982.2 mGy*cm Dose modulati on, iterative reconstruction, and/or weight based adjustment of the mA/kV was utilized to reduce the radiation dose to as low as reasonably achievable. FINDINGS: LINES/ TUBES: None. LUNGS AND AIRWAYS: The central airways a re patent. No focal consolidation or pulmonary edema. Left lower lobe dependen t subsegmental atelectasis. No suspicious pulmonary nodules. PLEURA: The pleural spaces are clear. HEART AND MEDIASTINUM: The thyroid gland is norm al. Bilateral axillary and subpectoral lymphadenopathy, measuring up to 2.3 x 1.6 cm on the right and 1.9 x 1.5 cm on the left. No mediastinal lymphadenopa thy. The heart is not enlarged. No pericardial effusion. No central pulmonary embolism. Diffuse atherosclerotic coronary artery calcifications. HEPAT OBILIARY: No focal hepatic lesions. No biliary ductal dilatation. The gallbla dder appears unremarkable. SPLEEN: No splenomegaly. PANCREAS: No focal masses or ductal dilatation. ADRENALS: No adrenal nodules. KIDNEYS/URETE RS: Nonobstructive 2 mm left midpole renal calculi. No hydronephrosis. No hydr oureter. PELVIC ORGANS/BLADDER: Unremarkable. PERITONEUM / RETROPERITONEU M: No free air or fluid. LYMPH NODES: No lymphadenopathy. VESSELS: Scattered atherosclerotic calcifications of the nonaneurysmal abdominal aorta and major branches. GI TRACT: Diverticulosis without CT evidence of diverticulitis. No abnormal bowel thickening. No bowel obstruction. Normal appendix. BONE S AND SOFT TISSUES: Enlarged inguinal lymph nodes measuring up to 2.0 x 1.2 cm on the right. No acute osseous injury. No suspicious lytic or blastic lesions. Mild degenerative changes of the visualized spine. Sternotomy wires intact. IMPRESSION: Axillary, subpectoral, and inguinal lymphadenopathy, concerning for lymphoma. Nonobstructive 2 mm left midpole renal calculus. No hydro nephrosis. Diverticulosis without CT evidence of diverticulitis. S igned by: Yves Hill MD on 11/20/2019 12:36 PM Dictated By: YVES HILL MD 1236 Transcribed By: MIGUELINA JERNIGAN on 11/20/19 1236 COPY TO: CORY BROWN MD Anisocytosis 2019-11-20 12:03:00* Test Item Value Reference Range Comments Anisocytosis (test bduw=535-8) MODERATE Red Cell Morphology Anorrtg4790-73-08 12:03:00* Test Item Value Reference Range Comments Red Cell Morphology Comment (test ycvr=4913-7) ABNORMAL Lactate Qpedsohsxzfll1740-45-61 09:59:00* Test Item Value Reference Range Comments Lactate Dehydrogenase (test gbzk=439451375) 151 125-220 Sodium Prjqx2383-44-72 06:05:00* Test Item Value Reference Range Comments Sodium Level (test madc=4692-7) 140 136-145 Potassium Frczx8158-29-79 06:05:00* Test Item Value Reference Range Comments Potassium Level (test kmsz=2416-1) 4.2 3.5-5.1 Chloride Fjnwg1514-20-21 06:05:00* Test Item Value Reference Range Comments Chloride Level (test nriz=8916-1) 106 98-107 Carbon Dioxide Nwhjk8597-03-75 06:05:00* Test Item Value Reference Range Comments Carbon Dioxide Level (test snan=0780-5) 27 22-29 Anion Sul9600-77-30 06:05:00* Test Item Value Reference Range Comments Anion Gap (test nmee=72334-7) 11.2 8-16 Blood Urea Orbxawyy1298-09-84 06:05:00* Test Item Value Reference Range Comments Blood Urea Nitrogen (test jmbo=1760-6) 16 7-26 Bzjbaiiuax3644-99-22 06:05:00* Test Item Value Reference Range Comments Creatinine (test xtyq=0254-8) 0.95 0.72-1.25 BUN/Creatinine Ezrrb0649-60-79 06:05:00* Test Item Value Reference Range Comments BUN/Creatinine Ratio (test nbeh=1257-6) 17 6-25 Estimat Glomerular Filtration Sumx3692-64-68 06:05:00* Test Item Value Reference Range Comments Estimat Glomerular Filtration Rate (test ckpb=102670737) > 60 >60 Ranges were taken from the National Kidney Disease Education Program and the [facility] literature.Reference ranges:60 or greater: Vokmgz32-21 ( for 3 consecutive months): Chronic kidney disease 15 or less: Kidney failure Glucose Cggds6547-94-82 06:05:00* Test Item Value Reference Range Comments Glucose Level (test bjxh=QVC4947) 137 74-118 Calcium Iffbd8512-55-48 06:05:00* Test Item Value Reference Range Comments Calcium Level (test cjrb=41321-5) 8.6 8.4-10.2 Total Aqjhrzmab0647-53-20 06:05:00* Test Item Value Reference Range Comments Total Bilirubin (test igci=3530-1) 0.5 0.2-1.2 Aspartate Amino Transf (AST/SGOT)2019-11-20 06:05:00* Test Item Value Reference Range Comments Aspartate Amino Transf (AST/SGOT) (test code=Aspartate Amino Transf (AST/SGOT)) 14 5-34 Alanine Aminotransferase (ALT/SGPT)2019-11-20 06:05:00* Test Item Value Reference Range Comments Alanine Aminotransferase (ALT/SGPT) (test xkix=1099-9) 13 0-55 Total Gfcalmo1033-27-49 06:05:00* Test Item Value Reference Range Comments Total Protein (test teov=8812-6) 6.2 6.5-8.1 Xqnulxo5313-53-05 06:05:00* Test Item Value Reference Range Comments Albumin (test kaiw=1006-1) 3.1 3.5-5.0 Bvhmlxou0580-53-46 06:05:00* Test Item Value Reference Range Comments Globulin (test tsxc=00707-7) 3.1 2.3-3.5 Albumin/Globulin Ifzbl9164-55-01 06:05:00* Test Item Value Reference Range Comments Albumin/Globulin Ratio (test qeyz=5122-3) 1.0 0.8-2.0 Alkaline Yxregajpqpy5063-41-65 06:05:00* Test Item Value Reference Range Comments Alkaline Phosphatase (test ynfm=9673-5) 76 40-150 US EXTREMITY RETANA KPA-ILS0678-96-03 16:38:00 [place] [address] Patient Name: GABRIEL UMANA MR #: [id number] : 1960 Age/Sex: 59/M Req #: [id number] Adm Physician: GRANT PATTEN MD Ordered by: NOLBERTO RODRIGUEZ MD Report #: [id number] Location: [facility] Room/Bed: [place] [address] Procedure: [id number] US /US EXTREMITY RETANA NON-VAS Exam Date: 11/19/19 Exam T marcell: 1547 REPORT STATUS: Signed EXAM: Focused Soft Tissue Ultrasound Evaluation of the right groin INDICAT ION: RIGHT INGUINAL MASS, ? ABSCESS VS LYMPH NODE COMPARISON: None TECHNIQUE: Welsh scale, color Doppler images of the right groin were obtained. FINDINGS: Sonographic images of the area of clinical interest in the right groin demonstrates a 2.3 x 0.8 x 2.1 cm soft tissue mass with in creased associated vascularity. No focal fluid collection. IMPRESSION: Right groin soft tissue mass with increased associated vascularity. This m ay represent a chrissie mass/metastatic disease if the patient has known history of primary malignancy. No focal fluid collection. Signed by: Yves Hill MD on 11/19/2019 4:44 PM Dictated By: YVES HILL MD 43 Transcribed By: NICOLE on 11/19/191643 COPY TO: NOLBERTO RODRIGUEZ MD Creatine Kinase GK9654-94-94 15:37:00* Test Item Value Reference Range Comments Creatine Kinase MB (test mmdl=13651-9) 0.80 0-5.0 Troponin U7111-03-66 15:37:00* Test Item Value Reference Range Comments Troponin I (test jwgn=OWZ7026) 0.010 0-0.300 Urine DSL4788-84-45 15:31:00* Test Item Value Reference Range Comments Urine WBC (test ybmp=6344-0) NONE 0-5 Urine RJL7710-72-07 15:31:00* Test Item Value Reference Range Comments Urine RBC (test hftj=48110-9) 6-10 0-5 Urine Xrhfsegh4240-25-84 15:31:00* Test Item Value Reference Range Comments Urine Bacteria (test popy=51623-7) MODERATE NONE Urine Epithelial Dfijb0137-73-13 15:31:00* Test Item Value Reference Range Comments Urine Epithelial Cells (test wkmz=68229-4) FEW NONE Urine Amorphous Cfbprdsp2125-86-50 15:31:00* Test Item Value Reference Range Comments Urine Amorphous Sediment (test fkkt=2989-9) MODERATE FEW Urine Yqmvf7295-65-48 15:28:00* Test Item Value Reference Range Comments Urine Color (test nwqq=6803-8) YELLOW YELLOW Urine Umcnaet7826-88-56 15:28:00* Test Item Value Reference Range Comments Urine Clarity (test qoyt=76911-5) SL CLOUDY CLEAR Urine Specific Zvuevpb3443-44-33 15:28:00* Test Item Value Reference Range Comments Urine Specific [place] (test badd=4287-9) >=1.030 1.010-1.025 Urine eY7833-50-26 15:28:00* Test Item Value Reference Range Comments Urine pH (test aczr=14258-0) 6 5-7 Urine Leukocyte Nzmjbzmq6078-92-25 15:28:00* Test Item Value Reference Range Comments Urine Leukocyte Esterase (test ddad=7785-5) NEGATIVE NEGATIVE Urine Ldwbimb8656-78-92 15:28:00* Test Item Value Reference Range Comments Urine Nitrite (test qbnx=67668-6) NEGATIVE NEGATIVE Urine Sxgjetp9498-08-27 15:28:00* Test Item Value Reference Range Comments Urine Protein (test rrtd=9245-6) 2+ NEGATIVE Urine Glucose (UA)2019-11-19 15:28:00* Test Item Value Reference Range Comments Urine Glucose (UA) (test ikgm=1381-1) 2+ NEGATIVE Urine Wrsjegc3089-19-78 15:28:00* Test Item Value Reference Range Comments Urine Ketones (test lnpx=83585-9) NEGATIVE NEGATIVE Urine Qzvecvecccvq2294-04-57 15:28:00* Test Item Value Reference Range Comments Urine Urobilinogen (test sfho=62022-3) 0.2 0.2-1 Urine Jaydjcvrt4560-06-19 15:28:00* Test Item Value Reference Range Comments Urine Bilirubin (test otbc=4087-2) NEGATIVE NEGATIVE Urine Iuaif8732-38-44 15:28:00* Test Item Value Reference Range Comments Urine Blood (test jpts=00254-0) TRACE NEGATIVE Creatine Uyqgvn8405-54-05 15:16:00* Test Item Value Reference Range Comments Creatine Kinase (test tjlf=9425-4) 26 30-200 Prothrombin Cwwx3530-50-06 15:15:00* Test Item Value Reference Range Comments Prothrombin Time (test ndku=5954-0) 14.4 11.9-14.5 Prothromb Time International Vzpcy9842-98-93 15:15:00* Test Item Value Reference Range Comments Prothromb Time International Ratio (test vnpu=4079-8) 1.09 Oral Anticoagulant Therapy INR Values:1. Low Intensity Therapy 1.5 - 2.02 . Moderate Intensity Therapy 2.0 - 3.03. High Intensity Therapy(1) 2.5 - 3. 54. High Intensity Therapy(2) 3.0 - 4.05. Panic Value INR > 5.0 Activated Partial Thromboplast Jsau1147-29-45 15:15:00* Test Item Value Reference Range Comments Activated Partial Thromboplast Time (test vcty=65677-6) 27.9 23.8-35.5 Total Rudypnzubgpgioap4908-61-05 06:45:00* Test Item Value Reference Range Comments Total Triiodothyronine (test nnts=8389-0) 111 71-180 Performed at: - [facility] [id number] Director: Ivan Robertson MD, Phone: [phone] B12 Arohg4054-47-18 08:31:00 * Test Item Value Reference Range Comments Vitamin B12 Level (test ywfd=46539-8) 408 213-816 Reactive Rjnqowmlmsn1470-17-80 07:45:00* Test Item Value Reference Range Comments Reactive Lymphocytes (test gyvh=32289-1) 5 Smudge Ljewk0590-44-66 07:45:00* Test Item Value Reference Range Comments Smudge Cells (test pnig=9138-9) MODERATE Platelet Aqtnljkt0860-68-15 07:45:00* Test Item Value Reference Range Comments Platelet Estimate (test sdgd=09855-1) ADEQUATE Platelet Morphology Jwqmpcd3713-37-50 07:45:00* Test Item Value Reference Range Comments Platelet Morphology Comment (test zlce=58660-1) NORMAL Mpiypaqdvmtxs0589-48-44 07:45:00* Test Item Value Reference Range Comments Hypochromasia (test pxlt=589-8) SLIGHT Lumnugdqhupd5329-10-07 07:45:00* Test Item Value Reference Range Comments Macrocytosis (test vjwk=440-3) MODERATE Free Ejdulkkvs6469-15-99 07:43:00* Test Item Value Reference Range Comments Free Thyroxine (test thvb=6155-3) 1.00 0.8-1.8 Thyroid Stimulating Hormone (TSH)2019-05-24 07:43:00* Test Item Value Reference Range Comments Thyroid Stimulating Hormone (TSH) (test nnxv=20103-4) 0.190 0.350-4.940 Hemoglobin A1c Bfthsbm2950-08-99 07:17:00* Test Item Value Reference Range Comments Hemoglobin A1c Percent (test code=Hemoglobin A1c Percent) 6.7 4.0-7.0 Triglycerides Luejn3586-62-07 07:17:00* Test Item Value Reference Range Comments Triglycerides Level (test fblx=4241-6) 86 0-149 Cholesterol Domlf3138-11-89 07:17:00* Test Item Value Reference Range Comments Cholesterol Level (test xvxj=0182-9) 165 0-199 Less than 200 mg/dL Low Pavf857 - 239 mg/dL Borderline Drej710 m g/dl and greater High Risk LDL Obuzjrysoqx2784-53-28 07:17:00* Test Item Value Reference Range Comments LDL Cholesterol (test eorx=8922-6) 118 60-130 HDL Xpxcvstsclp0213-73-15 07:17:00* Test Item Value Reference Range Comments HDL Cholesterol (test knmx=0014-9) 30 40-60 Cholesterol/HDL Cpiqo2772-68-55 07:17:00* Test Item Value Reference Range Comments Cholesterol/HDL Ratio (test wdvv=4418-2) 5.5 3.9-4.7 Urine Gtgmp5809-89-95 21:31:00* Test Item Value Reference Range Comments Urine Mucus (test cbfl=5319-1) MODERATE RARE B-Type Natriuretic Kcmjwwt0328-16-55 18:43:00* Test Item Value Reference Range Comments B-Type Natriuretic Peptide (test ukqz=06277-4) 171.5 0-100 Lactic Acid Fezcy5834-64-89 18:32:00* Test Item Value Reference Range Comments Lactic Acid Level (test code=Lactic Acid Level) 12.4 4.5-19.8 Influenza Virus Types A,B [id number] 18:30:00* Test Item Value Reference Range Comments Influenza Virus Types A,B Antigen (test ydfs=[id number]) NEGATIVE NEGATIVE CHEST SINGLE (PORTABLE)2019-05-23 18:29:00 [place] [address] Patient Name: GABRIEL UMANA MR #: [id number] : 1960 Age/Sex: 58/M Req #: [id number] Adm Physician: Ordered by: KARMA HUERTA PIN MAKER Report #: [id number] Location: ER Room/Bed: Procedure: [id number] DX/CHEST SINGLE (PORTABLE) Exam Date: 05/23/19 Exam Time: 1815 REPORT STATUS: Signed EXAMINATION: CHEST SINGLE (PORTABLE) INDICATION: ERMD ORDER [id number] Y COMPARISON: 10/01/2018 FINDINGS: AP view TUBES and LINES: None. LUNGS: Lungs are well inflated. Central vascular congestion. PLEURA: No pleural effusion or pneumothorax. HEART AND MEDIASTINUM: The cardiomediastinal silhouette is mildly enlarged. Median sternotomy wires and mediastinal surgical clips are again seen. BONES AND SOFT TISSUES: No acute osseous lesion. Soft tissues are unremarkab le. UPPER ABDOMEN: No free air under the diaphragm. IMPRESSION: Mildly enlarged cardiomediastinal silhouette and central vascular congestion. Underlying pneumonia in the perihilar regions cannot be excluded. Signed by: Dr. Tyrel Miranda MD on 05/23/2019 6:30 PM Dictated By: TYREL MIRANDA MD 29 Transcribed By: NICOLE on 05/23/191829 COPY TO: KARMA HUERTA PIN MAKER CHEST 2 [id number] 09:00:00 [place] [address] Patient Name: GASPER UMANA MR #: [id number] : 1960 Age/Sex: 58/M Req #: [id number] Adm Physician: Ordered by: PRAKASH YOUNG MD Report #: [id number] Location: ER Room/Bed: Procedure: [id number] DX/JIMMY ST 2 VIEWS Exam Date: 10/01/18 Exam Time: 843 REPORT STATUS: Signed EXAMINATION: C HEST 2 VIEWS INDICATION: sob, cp [id number] COMPARISON: Chest radiograph 04/04/2014 FINDINGS: PA and lateral views TUBES and LINES: None. LUNGS: Lungs are well inflated. Lungs are clear. There is no evidence of pneumonia or pulmonary edema. PLEUR A: No pleural effusion or pneumothorax. HEART AND MEDIASTINUM: Mild enlar gement of the cardiac silhouette. The mediastinum is otherwise unremarkable. BONES AND SOFT TISSUES: Intact median sternotomy wires. Mild multilevel d egenerative changes of the thoracic spine. Soft tissues are unremarkable. U PPER ABDOMEN: No free air under the diaphragm. IMPRESSION: Mild cardiom egaly without pulmonary decompensation. Signed by: Dr. Concepción Yates M.D. on 10/01/2018 9:01 AM Dictated By: CONCEPCIÓN YATES MD 0 Transc ribed By: NICOLE on 10/01/18900 COPY TO: PRAKASH YOUNG MD
[2020-01-31] MEDS ORDERED: ASPIRIN 81 MG CHEW TAB PO ONE (12:30)
[2020-01-31 12:43] LABS: BASOPHILS # (AUTO) 0.1 (0.0-0.1); HEMATOCRIT 35.3 % (38.2-49.6); LYMPHOCYTES # (AUTO) 137.1 (1.0-3.2); MEAN CORPUSCULAR HEMOGLOBIN 33.3 pg (28-32); MEAN CORPUSCULAR HGB CONC 31.2 g/dL (31-35); MONOCYTES # (AUTO) 8.8 (0.2-0.8); NEUTROPHILS # (AUTO) 1.4 (2.1-6.9); PLATELET COUNT 186 x10e3/uL (140-360); RED CELL DISTRIBUTION WIDTH 16.6 % (11.7-14.4)
[2020-01-31 12:58] LABS: PARTIAL THROMBOPLASTIN TIME 26.4 seconds (23.8-35.5); PROTHROMBIN TIME 13.8 seconds (11.9-14.5)
[2020-01-31 13:06] LABS: ALANINE AMINOTRANSFERASE 19 IU/L (0-55); ALBUMIN 3.6 g/dL (3.5-5.0); ALBUMIN/GLOBULIN RATIO 1.1 (0.8-2.0); ALKALINE PHOSPHATASE 77 IU/L (40-150); BLOOD UREA NITROGEN 20 mg/dL (7-26); BUN/CREATININE RATIO 20 (6-25); CALCIUM 9.7 mg/dL (8.4-10.2); CARBON DIOXIDE 31 mmol/L (22-29); CHLORIDE 103 mmol/L (98-107); CREATINE KINASE 46 IU/L (30-200); CREATININE, SERUM 1.02 mg/dL (0.72-1.25); EST GLOMERULAR FILTRATION RATE > 60 ML/MIN (60-); GLUCOSE 209 mg/dL (74-118); SODIUM 139 mmol/L (136-145)
--- NOTE | 2020-01-31 14:02 | Diagnostic Imaging Report ---
EXAM: CHEST SINGLE (PORTABLE) DATE: 01/31/2020 12:25 PM INDICATION: Chest pain COMPARISON: CT chest from 11/20/2019, chest radiograph from 05/23/2019 FINDINGS: Median sternotomy wires again noted. The trachea is midline. The lungs are symmetrically expanded without evidence for large focal consolidation, pneumothorax, or significant pleural effusion. The cardiomediastinal silhouette is stable in appearance. No acute osseous abnormality is identified. IMPRESSION: No acute cardiopulmonary process identified. Signed by: Dr. Johnathon Bacon MD on 01/31/2020 1:58 PM
[2020-01-31 20:00] VITALS: BP_SYST 150; BP_SYST 155; BP_DIAS 71; BP_DIAS 86
--- NOTE | 2020-01-31 20:00 | NUR ---
Patient received lying in bed. AAO x 4. Patient had no complaints of pain. Respirations even and non-labored. Admission history obtained from patient and patient's via telephone. Initial physical assessment performed. Patient oriented to room, call light and plan of care. Safety measures implemented. Patient instructed to call for assistance when needed. Call light within reach.
[2020-01-31] MEDS ORDERED: LOSARTAN POTAS100 MG PO (20:26)
[2020-01-31] MEDS ORDERED: SIMVASTATIN40 MG PO (20:26)
[2020-01-31] MEDS ORDERED: COMBIGAN EYE DRO5 ML OU (20:26)
[2020-01-31] MEDS ORDERED: TRESIBA FL100 UNIT/1 SQ (20:26)
[2020-01-31 21:00] VITALS: BP 150/71
[2020-01-31 21:30] LABS: CREATINE KINASE MB 1.1 ng/mL (0-5.0)
[2020-01-31 21:42] LABS: LYMPHOCYTES % (MANUAL) 83 % (19-48); METAMYELOCYTES % (MANUAL) 1 % (0-0); MONOCYTES % (MANUAL) 9 % (3.4-9.0); MYELOCYTES % (MANUAL) 1 % (0-0); NEUTROPHILS % (MANUAL) 2 % (40-74)
[2020-01-31 21:44] LABS: ANISOCYTOSIS SLIG; POIKILOCYTOSIS SLIGHT; RBC MORPHOLOGY COMMENT NORMAL
[2020-01-31 21:45] LABS: PLATELET ESTIMATE ADEQUATE; PLATELET MORPHOLOGY COMMENT NORMAL
[2020-01-31] MEDS ORDERED: MORPHINE SULFATE 2 MG/ML SYR 1ML IV PRN (22:15)
[2020-01-31] MEDS ORDERED: HYDROCODONE/APAP 5MG-325MG TAB PO PRN (22:15)
[2020-01-31] MEDS ORDERED: BENZONATATE 100 MG CAP PO PRN (22:15)
[2020-01-31] MEDS ORDERED: HYDRALAZINE HCL 20 MG/ML VIAL IV PRN (22:15)
[2020-01-31] MEDS ORDERED: DEXTROSE 50% SYRINGE 50 ML IV PRN (22:30)
[2020-01-31 23:00] VITALS: BP_SYST 155; BP_SYST 92; BP_DIAS 45; BP_DIAS 86
[2020-01-31] MEDS ORDERED: ONDANSETRON HCL INJ 2MG/ML 2ML 2 MG/ML VIAL IV PRN (23:15)
[2020-01-31] MEDS ORDERED: ACETAMINOPHEN 325 MG TAB PO PRN (23:15)
[2020-01-31] MEDS ORDERED: DOCUSATE SODIUM 100 MG CAP PO PRN (23:15)
[2020-01-31] MEDS ORDERED: ZOLPIDEM TARTRATE 5 MG TAB PO PRN (23:15)
[2020-02-01 02:03] VITALS: BP 168/79
[2020-02-01 04:00] VITALS: BP 181/84
--- NOTE | 2020-02-01 04:29 | NUR ---
H&P PRIMARY CARE PHYSICIAN: Dr. Mckeon IMMUNOLOGY TEACHER: Dr. Chung ADMISSIONS NURSE: Dr. Bellamy CHIEF COMPLAINT: cp HISTORY OF PRESENT ILLNESS: This is a 59yoM, developed chest discomfort---- PAST MEDICAL HISTORY: Right suprapubic abscess, CAD s/p CABG, disease, status post coronary artery bypass grafting in 2013, diabetic foot ulcer, status post right great toe partial amputation, vitreous hemorrhage in 2017 secondary to uncontrolled diabetes, peripheral arterial disease, CLL, hyperlipidemia, Blurred vision secondary to vitreous hemorrhage, Left-sided vitreous hemorrhage, Uncontrolled diabetes mellitus: Hemoglobin A1c is 9.4, HLD, Hypertensive heart disease with cardiomegaly, CAD with Obtuse marginal disease s/p PCI, Bronchopneumonia, Subclinical hyperthyroidism, glaucoma PAST SURGICAL HISTORY: Partial right great toe amputation, coronary artery bypass grafting times 5 in 2013, PCI to obtuse marginal a. ALLERGIES: PER ELECTRONIC MEDICAL RECORD. FAMILY/SOCIAL HISTORY: Patient is . No alcohol, illicits or cigarettes. MEDICATIONS: Per electronic medical record. REVIEW OF SYSTEMS: Denies any dizziness. Denies any fever, chills, sweats, nausea, vomiting, diarrhea, headache, chest pain, shortness of breath, back pain. PHYSICAL EXAMINATION VITAL SIGNS: Have been reviewed. GENERAL: tired appearing HEENT: Anicteric. left eye reduced vision CARDIOVASCULAR: Normal S1 and S2. LUNGS: mod bs ABDOMEN: Soft, nontender and nondistended. EXTREMITIES: He has right great toe partial amputated, well-healed. SKIN: Dry. PSYCHIATRIC: Flat affect. NEUROLOGICAL: Alert and oriented times 3. Moves all extremities. MUSCULOSKELETAL: He has a midchest wall scar. LABS: Reviewed. MEDICATIONS: Reviewed. ASSESSMENT: This is a 59yoM Atypical CP- cardiac enzymes negative; CLL- per hematology DM2- lipid/hba1c CAD with hx CABG PAD- cont ticagrelor Hypertensive heart ds Prop; scd; pepcid dispo: Grant Orozco MD, PhD.
[2020-02-01] MEDS ORDERED: LIPITOR20 MG PO (04:33)
[2020-02-01] MEDS ORDERED: METOPROLOL TART25 MG PO (04:33)
[2020-02-01 04:53] LABS: HEMATOCRIT 35.9 % (38.2-49.6); HEMOGLOBIN 11.2 g/dL (14.0-18.0); LYMPHOCYTES % 95.4 % (18.0-39.1); MEAN CORPUSCULAR HGB CONC 31.2 g/dL (31-35); MEAN CORPUSCULAR VOLUME 105.9 fL (81-99); MONOCYTES # (AUTO) 4.9 (0.2-0.8); MONOCYTES % 3.5 % (4.4-11.3); NEUTROPHILS # (AUTO) 1.3 (2.1-6.9); NEUTROPHILS % 1.1 % (38.7-80.0); PLATELET COUNT 163 x10e3/uL (140-360); RED BLOOD COUNT 3.39 x10e6/uL (4.3-5.7); RED CELL DISTRIBUTION WIDTH 16.1 % (11.7-14.4)
[2020-02-01 05:08] LABS: ANION GAP 12.4 mmol/L (8-16); BLOOD UREA NITROGEN 24 mg/dL (7-26); BUN/CREATININE RATIO 27 (6-25); CALCIUM 9.2 mg/dL (8.4-10.2); CARBON DIOXIDE 28 mmol/L (22-29); CHLORIDE 106 mmol/L (98-107); CREATININE, SERUM 0.88 mg/dL (0.72-1.25); EST GLOMERULAR FILTRATION RATE > 60 ML/MIN (60-); GLUCOSE 138 mg/dL (74-118); POTASSIUM 4.4 mmol/L (3.5-5.1); SODIUM 142 mmol/L (136-145)
--- NOTE | 2020-02-01 05:44 | NUR ---
Dr. Orozco notified of critical WBC level of 137.24.
--- NOTE | 2020-02-01 05:45 | NUR ---
Dr. Dixon paged regarding "Routine Consult". Reason: CLL. Spoke to Valarie. Awaiting call back.
--- NOTE | 2020-02-01 05:49 | NUR ---
H&P- ADDENDUM PRIMARY CARE PHYSICIAN: Dr. Mckeon PROFILING MACHINE SET UP OPERATOR TOOL: Dr. Chung RELAY REPAIRER: Dr. Bellamy CHIEF COMPLAINT: cp HISTORY OF PRESENT ILLNESS: This is a 59yoM, developed chest discomfort with left arm discomfort; no sob; all symptoms resolved; last stress test pt states less than 1 year; no dizziness; EKG no ST changes; wants to go home. PAST MEDICAL HISTORY: Right suprapubic abscess, CAD s/p CABG, disease, status post coronary artery bypass grafting in 2013, diabetic foot ulcer, status post right great toe partial amputation, vitreous hemorrhage in 2017 secondary to uncontrolled diabetes, peripheral arterial disease, CLL, hyperlipidemia, Blurred vision secondary to vitreous hemorrhage, Left-sided vitreous hemorrhage, Uncontrolled diabetes mellitus: Hemoglobin A1c is 9.4, HLD, Hypertensive heart disease with cardiomegaly, CAD with Obtuse marginal disease s/p PCI, Bronchopneumonia, Subclinical hyperthyroidism, glaucoma PAST SURGICAL HISTORY: Partial right great toe amputation, coronary artery bypass grafting times 5 in 2013, PCI to obtuse marginal a. ALLERGIES: PER ELECTRONIC MEDICAL RECORD. FAMILY/SOCIAL HISTORY: Patient is . No alcohol, illicits or cigarettes. MEDICATIONS: Per electronic medical record. REVIEW OF SYSTEMS: Denies any dizziness. Denies any fever, chills, sweats, nausea, vomiting, diarrhea, headache, chest pain, shortness of breath, back pain. PHYSICAL EXAMINATION VITAL SIGNS: Have been reviewed. GENERAL: tired appearing HEENT: Anicteric. left eye reduced vision CARDIOVASCULAR: Normal S1 and S2. LUNGS: mod bs ABDOMEN: Soft, nontender and nondistended. EXTREMITIES: He has right great toe partial amputated, well-healed. SKIN: Dry. PSYCHIATRIC: Flat affect. NEUROLOGICAL: Alert and oriented times 3. Moves all extremities. MUSCULOSKELETAL: He has a midchest wall scar. LABS: Reviewed. MEDICATIONS: Reviewed. ASSESSMENT: This is a 59yoM Atypical CP- cardiac enzymes negative; CLL- per hematology DM2- lipid/hba1c CAD with hx CABG PAD- cont ticagrelor Hypertensive heart ds Prop; scd; pepcid dispo: Grant Orozco MD, PhD.
--- NOTE | 2020-02-01 05:52 | NUR ---
Dr. Quinones notified of "Routine Consult" for patient. Reason: Chest pain
--- NOTE | 2020-02-01 06:50 | NUR ---
Walking rounds done. Shift report given to oncoming nurse regarding patient's health status. .
[2020-02-01 06:59] LABS: CREATINE KINASE MB 1.2 ng/mL (0-5.0)
--- NOTE | 2020-02-01 07:10 | NUR ---
RCD PT AT BED PT IS ALERT AND ORIENTED PT RESTING ON BED NO SIGNS OF ANY DISTRESS NOTED IV PATENT BED LOW AND LOCKED CALL LIGHT IN REACH
[2020-02-01 07:19] LABS: CHOL/HDL RATIO 5.2 (3.9-4.7)
[2020-02-01 07:55] LABS: ANISOCYTOSIS SLIGHT; LYMPHOCYTES % (MANUAL) 93 % (19-48); MONOCYTES % (MANUAL) 3 % (3.4-9.0); NEUTROPHILS % (MANUAL) 2 % (40-74); RBC MORPHOLOGY COMMENT NORMAL
[2020-02-01 07:56] LABS: PLATELET ESTIMATE ADEQUATE; PLATELET MORPHOLOGY COMMENT NORMAL; POIKILOCYTOSIS SLIGHT
[2020-02-01 08:18] VITALS: BP 177/86
[2020-02-01 08:54] VITALS: BP 177/86
[2020-02-01] MEDS ORDERED: METOPROLOL TARTRATE 25 MG TAB PO SCH (09:00)
[2020-02-01] MEDS: INSULIN LISPRO 100 UNIT/1 ML 3ML VIAL SQ SCH ×2 (09:00→15:00)
[2020-02-01] MEDS ORDERED: ASPIRIN 81 MG ENTERIC COATED PO SCH (09:00)
[2020-02-01] MEDS ORDERED: LOSARTAN POTASSIUM 100 MG TAB PO SCH (09:00)
[2020-02-01] MEDS ORDERED: ONDANSETRON HCL 4 MG ORAL DISINTEGRATING TAB PO PRN (10:00)
--- NOTE | 2020-02-01 10:30 | NUR ---
DR DE LA GARZA CAME TO SEE THE PT ,PTS PROPULSION MOTOR AND GENERATOR REPAIRER DR KESSLER SO HE CHANGED THE CONSULTATION TALKED DR KESSLER HE SAID HE IS COMING AT 1300 TO SEE THE PT
[2020-02-01 13:05] VITALS: BP 158/81
--- NOTE | 2020-02-01 14:30 | NUR ---
DR KESSLER CAME TO SEE THE PT HE SUGGESTED TO DO ECHO AND STRESS TEST HE REFUSED IT HE TALKED THE COMPLICATIONS IF IT NOT DOING PT SAID HE DONT NEED ANYTHING
--- NOTE | 2020-02-01 15:40 | NUR ---
PT WENT HOME IN SAFE CONDITION WITH HIS
--- NOTE | 2020-02-01 18:28 | Consultation ---
DATE OF CONSULTATION: Cardiology Consultation HISTORY OF PRESENT ILLNESS: This is a 59-year-old man with a history of hypertension, diabetes mellitus, history of vitreous hemorrhage, coronary artery disease status post coronary artery bypass graft surgery and percutaneous coronary intervention, and chronic lymphocytic leukemia, who presented to the emergency department with chest pain. The patient had stuttering chest pain over the last 2 days, mild to moderate intensity centrally located with paresthesias in the left upper extremity. No exacerbating or relieving factors occurred at rest. Currently, he is asymptomatic. PAST MEDICAL HISTORY: As stated above in the history of present illness. PAST SURGICAL HISTORY: Coronary artery bypass graft surgery, percutaneous coronary intervention. PAST FAMILY HISTORY: Noncontributory to current illness. ALLERGIES: CLINDAMYCIN, SULFAMETHOXAZOLE, TRIMETHOPRIM. SOCIAL HISTORY: No illicit drug, alcohol, or tobacco use. MEDICATIONS: See medication reconciliation form. PHYSICAL EXAMINATION: VITAL SIGNS: Temperature is 97.9, heart rate 61, respirations 16, blood pressure is 158/81, and oxygen saturation 98% on room air. GENERAL: Well appearing, well built, no apparent distress. Alert and oriented x3. HEAD: Normocephalic and atraumatic. EYES: Extraocular muscles are intact. Conjunctivae are clear. NECK: No JVD. No bruits. CARDIOVASCULAR: Regular rate and rhythm. No murmurs. LUNGS: Clear to auscultation bilaterally. No wheezing or rales. ABDOMEN: Soft, nontender, nondistended. EXTREMITIES: No clubbing, cyanosis, or edema. VASCULAR: 2+ pulses. SKIN: Warm, dry, and intact. NEUROLOGIC: No focal deficits noted. LABORATORY DATA: Reviewed. White blood cell count is 137, hemoglobin is 11.2. Chemistries; revealed no evidence of ACS with normal troponins x3. Creatinine is normal. Potassium is 4.4. Chest x-ray shows no acute cardiopulmonary abnormality with postsurgical changes. A 12-lead electrocardiogram showed normal sinus rhythm with an inferior infarction, age undetermined. IMPRESSION: 1. Precordial pain. 2. Coronary artery disease, status post coronary artery bypass graft surgery and percutaneous intervention. 3. Hypertensive urgency. 4. Hypertension. 5. Hyperlipidemia. 6. Diabetes mellitus. RECOMMENDATIONS: I recommend to the patient to undergo echocardiography and to perform a nuclear stress test for myocardial perfusion imaging, given his risk factors and episodes of chest pain. He currently declines to have these done as he is worried about his daughter and wants to be discharged. I discussed the risks of doing so including progression of his coronary artery disease and/or development of myocardial infarction, which possibly could lead to and he understands these risks. Continue current cardiovascular medications and titrate antihypertensive medications. The patient will follow up with his primary passenger tire builder upon discharge. DO ALIE Mukherjee/MEAAGN /[id number]
[2020-02-01] MEDS ORDERED: SIMVASTATIN 40 MG TAB PO SCH (21:00)
[2020-02-01] MEDS ORDERED: ATORVASTATIN 40 MG TAB PO SCH (21:00)
== END 2020-02-01 15:40 | disposition home or self-care (01) ==
LOC: ER 11:53 → ERHOLD 17:17 → MED/SURG2 18:57
PROVIDERS: ADMIT Internal Medicine; ATTEND Internal Medicine
DX: R07.2 Precordial pain (principal); I11.9 Hypertensive heart disease without heart failure; E11.51 Type 2 diabetes mellitus with diabetic peripheral angiopathy without gangrene; I25.10 Atherosclerotic heart disease of native coronary artery without angina pectoris; C91.10 Chronic lymphocytic leukemia of B-cell type not having achieved remission; Z95.1 Presence of aortocoronary bypass graft; Z88.1 Allergy status to other antibiotic agents; Z88.2 Allergy status to sulfonamides; Z88.8 Allergy status to other drugs, medicaments and biological substances; Z89.412 Acquired absence of left great toe; I16.0 Hypertensive urgency; E78.5 Hyperlipidemia, unspecified; Z95.5 Presence of coronary angioplasty implant and graft
CPT/HCPCS: 36415 ×2; 71045; 80048; 80053; 80061; 82550 ×2; 82553 ×2; 82948 ×2; 83036; 83880; 84484 ×2; 85025 ×2; 85610; 85730; 93005; 99284; G0378 ×2; J0360

== ENCOUNTER 2020-03-31 04:42 | Inpatient (IN) | payer BC, OTHER ==
[~2020-03-31] VITALS: Ht 188 cm; Wt 92.6 kg
[~2020-03-31 04:42] MED LIST changes: +COMBIGAN EYE DRO5 ML OU; +LOSARTAN POTAS100 MG PO; +METOPROLOL TART25 MG PO; +SIMVASTATIN40 MG PO; +TRESIBA FL100 UNIT/1 SQ
[2020-03-31] MEDS ORDERED: SODIUM CHLORIDE 0.9% 1000ML 1,000 ML IV ONE ×2 (05:00→06:30)
[2020-03-31] MEDS ORDERED: CEFEPIME 2 GM/NS 0.9% 100 ML 100 ML IV ONE (05:00)
[2020-03-31] MEDS ORDERED: ACETAMINOPHEN 325 MG TAB PO ONE ×2 (05:00→14:00)
--- NOTE | 2020-03-31 05:07 | Emergency Department Note ---
History of Present Illnes History of Present Illness Chief Complaint: Respiratory History of Present Illness This is a 59 year old male with history of leukemia for which he has n ot started treatment at this time presents with complaint of fever dry cough weakness bodyaches for 2 days. Denies nausea vomiting diarrhea. Denies chest pain. . Historian: Patient Arrival Mode: Car Onset (how long ago): day(s) (2) Location: ALL OVER Quality: WEAKNES,FEVER, DRY COUGH Radiation: Reports non-radiation Severity: mild Onset quality: gradual Duration (how long): day(s) (2) Timing of current episode: constant Progression: worsening Chronicity: new Context: Denies recent illness, Denies recent surgery Relieving factors: none Exacerbating factors: none Associated symptoms: Reports fever/chills, Reports malaise, Reports shortness of breath, Reports weakness Treatments prior to arrival: none Past Medical/Family History Physician Review I have reviewed the patient's past medical and family history. Any updates have been documented here. 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 Cataract in right eye ID (x2) Past Surgical History: CABG Other Surgery: CABG(5) Cardiac stents (3) Eye surgeries related to Glaucoma Social History Smoking Cessation: Never Smoker Alcohol Use: None Any Illegal Drug Use: No Family History Family history of heart diseas: Yes Other family history HTN,DM Other Last Tetanus: UNKNOWN Review of Systems Review of Systems Constitutional: Reports as per HPI EENTM: Reports no symptoms Cardiovascular: Reports no symptoms Respiratory: Reports as per HPI Gastrointestinal: Reports no symptoms Genitourinary: Reports no symptoms Musculoskeletal: Reports no symptoms Integumentary: Reports no symptoms Neurological: Reports no symptoms Psychological: Reports no symptoms Endocrine: Reports no symptoms Hematological/Lymphatic: Reports no symptoms Physical Exam Related Data Allergies: Coded Allergies: clindamycin (Verified Allergy, Severe, RASH, 01/31/20) sulfamethoxazole (Verified Allergy, Intermediate, RASH, 01/31/20) trimethoprim (Verified Allergy, Intermediate, RASH, 01/31/20) Triage Vital Signs Vital Signs Date Time Temp Pulse Resp B/P (MAP) Pulse Ox O2 Delivery O2 Flow Rate FiO2 03/31/20 04:51 100.7 98 18 170/72 97 Vital signs reviewed: Yes Physical Exam CONSTITUTIONAL Constitutional: Present well-developed, Present well-nourished HENT HENT: Present normocephalic, Present atraumatic, Present oropharynx clear/moist, Present nose normal HENT L/R: Present left ext ear normal, Present right ext ear normal EYES Eyes: Reports PERRL, Reports conjunctivae normal NECK Neck: Present ROM normal PULMONARY Pulmonary: Present effort normal, Present breath sounds normal CARDIOVASCULAR Cardiovascular: Present regular rhythm, Present heart sounds normal, Present capillary refill normal, Present normal rate GASTROINTESTINAL Abdominal: Present soft, Present nontender, Present bowel sounds normal GENITOURINARY Genitourinary: Present exam deferred SKIN Skin: Present warm, Present dry MUSCULOSKELETAL Musculoskeletal: Present ROM normal NEUROLOGICAL Neurological: Present alert, Present oriented x 3, Present no gross motor or sensory deficits PSYCHOLOGICAL Psychological: Present mood/affect normal, Present judgement normal Results Laboratory Laboratory Laboratory Tests Test 03/31/20 04:50 White Blood Count 151.56 x10e3/uL Red Blood Count 3.23 x10e6/uL (4.3-5.7) Hemoglobin 10.4 g/dL (14.0-18.0) Hematocrit 34.9 % (38.2-49.6) Mean Corpuscular Volume 108.0 fL (81-99) Mean Corpuscular Hemoglobin 32.2 pg (28-32) Mean Corpuscular Hemoglobin Concent 29.8 g/dL (31-35) Red Cell Distribution Width 17.1 % (11.7-14.4) Platelet Count 223 x10e3/uL (140-360) Neutrophils (%) (Auto) 1.1 % (38.7-80.0) Lymphocytes (%) (Auto) 96.8 % (18.0-39.1) Monocytes (%) (Auto) 2.0 % (4.4-11.3) Eosinophils (%) (Auto) 0.0 % (0.0-6.0) Basophils (%) (Auto) 0.0 % (0.0-1.0) Neutrophils # (Auto) 1.7 (2.1-6.9) Lymphocytes # (Auto) 146.7 (1.0-3.2) Monocytes # (Auto) 3.0 (0.2-0.8) Eosinophils # (Auto) 0.0 (0.0-0.4) Basophils # (Auto) 0.0 (0.0-0.1) Absolute Immature Granulocyte (auto 0.15 x10e3/uL (0-0.1) Prothrombin Time 13.7 seconds (11.9-14.5) Prothromb Time International Ratio 0.99 Activated Partial Thromboplast Time 27.8 seconds (23.8-35.5) Urine Color Yellow (YELLOW) Urine Clarity Sl cloudy (CLEAR) Urine pH 7.5 (5 - 7) Urine Specific [place] 1.025 (1.010-1.025) Urine Protein 2+ (NEGATIVE) Urine Glucose (UA) 1+ (NEGATIVE) Urine Ketones Negative (NEGATIVE) Urine Blood Large (NEGATIVE) Urine Nitrite Negative (NEGATIVE) Urine Bilirubin Negative (NEGATIVE) Urine Urobilinogen 0.2 mg/dL (0.2 - 1) Urine Leukocyte Esterase Trace (NEGATIVE) Urine RBC 11-20 /HPF (0-5) Urine WBC 11-20 /HPF (0-5) Urine Epithelial Cells Few /LPF (NONE) Urine Bacteria Rare /HPF (NONE) Sodium Level 137 mmol/L (136-145) Potassium Level 4.1 mmol/L (3.5-5.1) Chloride Level 103 mmol/L (98-107) Carbon Dioxide Level 21 mmol/L (22-29) Anion Gap 17.1 mmol/L (8-16) Blood Urea Nitrogen 15 mg/dL (7-26) Creatinine 1.17 mg/dL (0.72-1.25) Estimat Glomerular Filtration Rate > 60 ML/MIN (60-) BUN/Creatinine Ratio 13 (6-25) Glucose Level 230 mg/dL (74-118) Lactic Acid Level 1.0 mmol/L (0.5-2.0) Calcium Level 9.2 mg/dL (8.4-10.2) Total Bilirubin 0.8 mg/dL (0.2-1.2) Aspartate Amino Transf (AST/SGOT) 24 IU/L (5-34) Alanine Aminotransferase (ALT/SGPT) 20 IU/L (0-55) Alkaline Phosphatase 79 IU/L (40-150) Creatine Kinase 129 IU/L (30-200) Creatine Kinase MB 0.60 ng/mL (0-5.0) Troponin I 0.061 ng/mL (0-0.300) Total Protein 7.6 g/dL (6.5-8.1) Albumin 3.4 g/dL (3.5-5.0) Globulin 4.2 g/dL (2.3-3.5) Albumin/Globulin Ratio 0.8 (0.8-2.0) Influenza Virus Types A,B Antigen Negative (NEGATIVE) Group A Streptococcus Screen Negative (NEGATIVE) Lab results reviewed: Yes Laboratory comments PT HAS CLL AND HAS NOT STARTED TREATMENT, WBC HAS BEEN GREATER THAN 100k SINCE NOVEMBER Imaging Imaging results reviewed: Yes Impressions Procedure: [id number] DX/CHEST SINGLE (PORTABLE) Exam Date: Exam Time: REPORT STATUS: Signed EXAMINATION: CHEST SINGLE (PORTABLE) INDICATION: ^Y ^FEVER, COUGH, SOB ^Y COMPARISON: 01/31/2020 FINDINGS: AP view TUBES and LINES: None. LUNGS: Lungs are well inflated. Right lower lung field hazy opacification. PLEURA: No pneumothorax. HEART AND MEDIASTINUM: The cardiomediastinal silhouette is enlarged. Median sternotomy wires and mediastinal surgical clips are again seen. BONES AND SOFT TISSUES: No acute osseous lesion. Soft tissues are unremarkable. UPPER ABDOMEN: No free air under the diaphragm. IMPRESSION: Right lower lung field hazy opacification, concerning for pneumonia. Small effusion cannot be excluded. Signed by: Dr. Tyrel Cisneros MD on 03/31/2020 5:57 AM Procedures 12 Lead ECG Interpretation ECG Interpretation : ECG: ECG 1 [place]: Interpreted by ED physician Date: Mar 31, 2020 Time: 04:46 Rhythm: sinus rhythm Rate: normal BPM: 97 QRS axis: normal Conduction: incomplete RBBB ST segments normal: Yes T waves normal: No (NON SPECIFIC CHANGES) Other findings: no other findings Clinical Impression: abnormal ECG Assessment & Plan Medical Decision Making MDM Patient with history of leukemia not on treatment presents with fever dry cough shortness of breath weakness bodyaches and chills. CBC, CMP, EKG, cardiac enzymes, chest x-ray, lactic acid, blood cultures, UA, urine cultures, rapid flu, strep screen, colon 19, lactic acid ordered to eval for sepsis, pneumonia, Covid 19, strep pharyngitis, influenza, ellipsoid abnormality, myocardial infarction, UTI. Cefepime 2 g IV ordered. Tylenol 975 mg by mouth ordered. Normal saline 1 L IV bolus ordered. Patient found to have right lower lobe pneumonia on chest x-ray. Patient will be admitted to Dr. Patten and inpatient status per Dr. Patten. Patient on cefepime and be started on azithromycin. Covid [address] Patten aware to follow up results. Assessment & Plan Final Impression: (1) Fever (2) UTI (urinary tract infection) (3) CLL (chronic lymphocytic leukemia) (4) Pneumonia Depart Disposition: ADMITTED Last Vital Signs Date Time Temp Pulse Resp B/P (MAP) Pulse Ox O2 Delivery O2 Flow Rate FiO2 03/31/20 04:51 100.7 98 18 170/72 97 Home Meds Active Scripts Metoprolol Tartrate (METOPROLOL TARTRATE) 25 Mg Tablet, 12.5 MG PO Q12H for 30 Days, TAB Prov:GERALD PATTEN MD 02/01/20 Atorvastatin Calcium (LIPITOR) 20 Mg Tablet, 40 MG PO HS, #30 TAB Prov:GERALD PATTEN MD 02/01/20 Aspirin (ASPIRIN EC) 81 Mg Tablet.dr, 81 MG PO QAM for 30 Days Prov:GERALD PATTEN MD 10/05/18 Reported Medications Brimonidine Tartrate (COMBIGAN EYE DROPS) 5 Ml Drpette, 5 ML OU 01/31/20 Losartan Potassium (LOSARTAN POTASSIUM) 100 Mg Tablet, 100 MG PO DAILY, TAB 01/31/20 Insulin Degludec (Tresiba Flextouch U-100) 100 Unit/1 Ml Insuln.pen, 8 U SQ HS 01/31/20 Insulin Aspart (NOVOLOG) 100 Unit/1 Ml Cartridge, 8 UNITS SQ TID 10/02/18 Medications in the ED Acetaminophen 975 mg ONCE ONCE PO ; Start 03/31/20 at 05:00; Stop 03/31/20 at 05:01; Status UNV Cefepime HCl 100 ml @ 200 mls/hr ONCE ONCE IV ; Start 03/31/20 at 05:00; Stop 03/31/20 at 05:29; Status UNV Sodium Chloride 1,000 ml @ 999 mls/hr Q1H1M ONCE IV ; Start 03/31/20 at 05:00; Stop 03/31/20 at 06:00 JULISSA OVIEDO MD Mar 31, 2020 05:07
[2020-03-31 05:08] LABS: HEMATOCRIT 34.9 % (38.2-49.6); HEMOGLOBIN 10.4 g/dL (14.0-18.0); LYMPHOCYTES # (AUTO) 146.7 (1.0-3.2); LYMPHOCYTES % 96.8 % (18.0-39.1); MEAN CORPUSCULAR HEMOGLOBIN 32.2 pg (28-32); MEAN CORPUSCULAR HGB CONC 29.8 g/dL (31-35); NEUTROPHILS # (AUTO) 1.7 (2.1-6.9); NEUTROPHILS % 1.1 % (38.7-80.0); PLATELET COUNT 223 x10e3/uL (140-360); RED BLOOD COUNT 3.23 x10e6/uL (4.3-5.7); RED CELL DISTRIBUTION WIDTH 17.1 % (11.7-14.4)
[2020-03-31 05:12] LABS: INR 0.99; PARTIAL THROMBOPLASTIN TIME 27.8 seconds (23.8-35.5); PROTHROMBIN TIME 13.7 seconds (11.9-14.5)
[2020-03-31 05:20] LABS: ALANINE AMINOTRANSFERASE 20 IU/L (0-55); ALBUMIN 3.4 g/dL (3.5-5.0); ALBUMIN/GLOBULIN RATIO 0.8 (0.8-2.0); ALKALINE PHOSPHATASE 79 IU/L (40-150); ANION GAP 17.1 mmol/L (8-16); BLOOD UREA NITROGEN 15 mg/dL (7-26); BUN/CREATININE RATIO 13 (6-25); CALCIUM 9.2 mg/dL (8.4-10.2); CARBON DIOXIDE 21 mmol/L (22-29); CHLORIDE 103 mmol/L (98-107); CREATINE KINASE 129 IU/L (30-200); CREATININE, SERUM 1.17 mg/dL (0.72-1.25); EST GLOMERULAR FILTRATION RATE > 60 ML/MIN (60-); GLUCOSE 230 mg/dL (74-118); POTASSIUM 4.1 mmol/L (3.5-5.1); SODIUM 137 mmol/L (136-145)
[2020-03-31] MEDS ORDERED: CEFEPIME HCL 2 GM VIAL ONE (05:20)
[2020-03-31 05:53] LABS: STREPTOCOCCUS GRP A ANTIGEN NEGATIVE (NEGATIVE)
--- NOTE | 2020-03-31 06:00 | Diagnostic Imaging Report ---
EXAMINATION: CHEST SINGLE (PORTABLE) INDICATION: ^Y ^FEVER, COUGH, SOB ^Y COMPARISON: 01/31/2020 FINDINGS: AP view TUBES and LINES: None. LUNGS: Lungs are well inflated. Right lower lung field hazy opacification. PLEURA: No pneumothorax. HEART AND MEDIASTINUM: The cardiomediastinal silhouette is enlarged. Median sternotomy wires and mediastinal surgical clips are again seen. BONES AND SOFT TISSUES: No acute osseous lesion. Soft tissues are unremarkable. UPPER ABDOMEN: No free air under the diaphragm. IMPRESSION: Right lower lung field hazy opacification, concerning for pneumonia. Small effusion cannot be excluded. Signed by: Dr. Tyrel Cisneros MD on 03/31/2020 5:57 AM
[2020-03-31 06:07] LABS: INFLUENZAE A&B ANTIGEN (RAPID) NEGATIVE (NEGATIVE)
--- NOTE | 2020-03-31 06:14 | NUR ---
PTS SPOUSE, CESAR, TO BE NOTIFIED OF PTS POC [phone]
[2020-03-31] MEDS ORDERED: DEXTROSE 50% SYRINGE 50 ML IV PRN (06:30)
[2020-03-31] MEDS ORDERED: DOCUSATE SODIUM 100 MG CAP PO PRN (06:30)
[2020-03-31] MEDS ORDERED: AZITHROMYCIN 500MG/SOD CHL 0.9% 250ML BAG IV SCH (06:30)
[2020-03-31] MEDS ORDERED: AZITHROMYCIN 250 MG TAB PO SCH (06:30)
[2020-03-31] MEDS ORDERED: ONDANSETRON HCL INJ 2MG/ML 2ML 2 MG/ML VIAL IV PRN (06:30)
--- NOTE | 2020-03-31 06:35 | NUR ---
H&P PRIMARY CARE PHYSICIAN: Dr. Mckeon WEAPONS SPECIALIST: Dr. Chung PODIATRIC MEDICINE DOCTOR: Dr. Bellamy CHIEF COMPLAINT: cp HISTORY OF PRESENT ILLNESS: 59yoM, developed sob and cough. COVID testing ordered. PAST MEDICAL HISTORY: Right suprapubic abscess, CAD s/p CABG, disease, status post coronary artery bypass grafting in 2013, diabetic foot ulcer, status post right great toe partial amputation, vitreous hemorrhage in 2017 secondary to uncontrolled diabetes, peripheral arterial disease, CLL, hyperlipidemia, Blurred vision secondary to vitreous hemorrhage, Left-sided vitreous hemorrhage, Uncontrolled diabetes mellitus: Hemoglobin A1c is 9.4, HLD, Hypertensive heart disease with cardiomegaly, CAD with Obtuse marginal disease s/p PCI, Bronchopneumonia, Subclinical hyperthyroidism, glaucoma, atypical cp PAST SURGICAL HISTORY: Partial right great toe amputation, coronary artery bypass grafting times 5 in 2013, PCI to obtuse marginal a. ALLERGIES: PER ELECTRONIC MEDICAL RECORD. FAMILY/SOCIAL HISTORY: Patient is . No alcohol, illicits or cigarettes. MEDICATIONS: Per electronic medical record. REVIEW OF SYSTEMS: Denies any dizziness. Denies any fever, chills, sweats, nausea, vomiting, diarrhea, headache, chest pain, shortness of breath, back pain. PHYSICAL EXAMINATION VITAL SIGNS: Have been reviewed. GENERAL: tired appearing HEENT: Anicteric. left eye reduced vision CARDIOVASCULAR: Normal S1 and S2. LUNGS: mod bs ABDOMEN: Soft, nontender and nondistended. EXTREMITIES: He has right great toe partial amputated, well-healed. SKIN: Dry. PSYCHIATRIC: Flat affect. NEUROLOGICAL: Alert and oriented times 3. Moves all extremities. MUSCULOSKELETAL: He has a midchest wall scar. LABS: Reviewed. MEDICATIONS: Reviewed. ASSESSMENT: This is a 59yoM Right PNA- iv cefepime/azithromycin UTI- IV cefepime CLL- per hematology DM2- lipid/hba1c CAD with hx CABG PAD- cont ticagrelor Hypertensive heart ds Prop; scd; pepcid dispo: Grant Orozco MD, PhD.
[2020-03-31 07:02] LABS: CHOL/HDL RATIO 4.3 (3.9-4.7)
[2020-03-31 07:18] LABS: CLARITY,URINE CLEAR (CLEAR); COLOR,URINE YELLOW (YELLOW)
[2020-03-31 07:19] LABS: LEUKOCYTE ESTERASE ,URINE NEGATIVE (NEGATIVE); NITRITE,URINE NEGATIVE (NEGATIVE); PROTEIN,URINE DIPSTICK >=300 (NEGATIVE)
[2020-03-31 07:20] LABS: BILIRUBIN,URINE NEGATIVE (NEGATIVE); KETONES,URINE 2+ (NEGATIVE); URINE UROBILINOGEN 1 mg/dL (0.2 - 1)
[2020-03-31 07:31] LABS: BACTERIA,URINE FEW /HPF; EPITHELIAL CELLS,URINE RARE /LPF; WBC,URINE (MAN) 0-5 /HPF (0-5)
[2020-03-31] MEDS: AZITHROMYCIN 500MG/NS 250 ML 250 ML IV SCH (08:47)
[2020-03-31] MEDS: INSULIN REGULAR, HUMAN 100 UNIT/1 ML 3ML VIAL SQ SCH ×4 (08:48→20:38)
[2020-03-31] MEDS: METOPROLOL TARTRATE 25 MG TAB PO SCH ×2 (09:14→20:28)
[2020-03-31] MEDS: BENZONATATE 100 MG CAP PO SCH ×3 (09:15→20:28)
[2020-03-31] MEDS: LOSARTAN POTASSIUM 100 MG TAB PO SCH (09:15)
[2020-03-31 10:51] LABS: LYMPHOCYTES % (MANUAL) 94 % (19-48); MONOCYTES % (MANUAL) 3 % (3.4-9.0); NEUTROPHILS % (MANUAL) 3 % (40-74)
[2020-03-31 10:52] LABS: PLATELET ESTIMATE ADEQUATE; PLATELET MORPHOLOGY COMMENT FEW LARGE; POLYCHROMASIA FEW; SMUDGE CELLS MANY
[2020-03-31] MEDS ORDERED: CEFEPIME HCL 2 GM/SOD CHL 0.9% 100 ML BAG IV SCH (14:00)
[2020-03-31] MEDS: CEFEPIME 2 GM/NS 0.9% 100 ML 100 ML IV SCH ×2 (14:00→21:01)
[2020-03-31] MEDS: ACETAMINOPHEN 325 MG TAB PO PRN ×2 (14:07→19:22)
[2020-03-31] MEDS: ATORVASTATIN 40 MG TAB PO SCH (20:28)
[2020-03-31 20:52] LABS: CREATINE KINASE MB 0.5 ng/mL (0-5.0)
[2020-03-31] MEDS ORDERED: IBUPROFEN 600 MG TAB PO PRN (21:00)
[2020-03-31] MEDS ORDERED: ATORVASTATIN 20 MG TAB PO SCH (21:00)
[2020-03-31] MEDS ORDERED: ZOLPIDEM TARTRATE 5 MG TAB PO PRN (21:00)
[2020-03-31 23:00] VITALS: BP 143/64
[2020-04-01] VITALS (8 sets, daily range): BP systolic 117–177; BP diastolic 52–83
[2020-04-01] MEDS: CEFEPIME 2 GM/NS 0.9% 100 ML 100 ML IV SCH ×3 (05:35→21:22)
[2020-04-01] MEDS ORDERED: SODIUM CHLORIDE 0.9% 250ML 250 ML ONE (05:37)
[2020-04-01 05:48] LABS: BASOPHILS # (AUTO) 0.2 (0.0-0.1); BASOPHILS % 0.1 % (0.0-1.0); HEMATOCRIT 32.9 % (38.2-49.6); LYMPHOCYTES # (AUTO) 126.2 (1.0-3.2); LYMPHOCYTES % 95.8 % (18.0-39.1); MEAN CORPUSCULAR HEMOGLOBIN 33.4 pg (28-32); MEAN CORPUSCULAR HGB CONC 30.4 g/dL (31-35); MONOCYTES # (AUTO) 3.5 (0.2-0.8); MONOCYTES % 2.6 % (4.4-11.3); NEUTROPHILS # (AUTO) 1.8 (2.1-6.9); NEUTROPHILS % 1.4 % (38.7-80.0); PLATELET COUNT 191 x10e3/uL (140-360); RED BLOOD COUNT 2.99 x10e6/uL (4.3-5.7); RED CELL DISTRIBUTION WIDTH 16.6 % (11.7-14.4)
[2020-04-01 06:15] LABS: ALANINE AMINOTRANSFERASE 22 IU/L (0-55); ALBUMIN 2.7 g/dL (3.5-5.0); ALBUMIN/GLOBULIN RATIO 0.7 (0.8-2.0); ALKALINE PHOSPHATASE 69 IU/L (40-150); ANION GAP 13.6 mmol/L (8-16); BLOOD UREA NITROGEN 15 mg/dL (7-26); BUN/CREATININE RATIO 15 (6-25); CALCIUM 8.5 mg/dL (8.4-10.2); CARBON DIOXIDE 22 mmol/L (22-29); CHLORIDE 106 mmol/L (98-107); CREATININE, SERUM 1.01 mg/dL (0.72-1.25); EST GLOMERULAR FILTRATION RATE > 60 ML/MIN (60-); GLUCOSE 195 mg/dL (74-118); POTASSIUM 3.6 mmol/L (3.5-5.1); SODIUM 138 mmol/L (136-145)
[2020-04-01] MEDS: AZITHROMYCIN 500MG/NS 250 ML 250 ML IV SCH (06:33)
--- NOTE | 2020-04-01 06:34 | NUR ---
PAGED DR BROWN FOR CONSULTATION. AWAITING FOR MD TO CALL BACK
[2020-04-01 07:22] LABS: CREATINE KINASE MB 0.7 ng/mL (0-5.0)
[2020-04-01] MEDS: ACETAMINOPHEN 325 MG TAB PO PRN ×2 (09:01→21:05)
[2020-04-01] MEDS: BENZONATATE 100 MG CAP PO SCH ×3 (09:13→20:51)
[2020-04-01] MEDS: INSULIN REGULAR, HUMAN 100 UNIT/1 ML 3ML VIAL SQ SCH ×4 (09:14→21:37)
[2020-04-01] MEDS: LOSARTAN POTASSIUM 100 MG TAB PO SCH (09:14)
[2020-04-01] MEDS: METOPROLOL TARTRATE 25 MG TAB PO SCH ×2 (09:14→20:51)
[2020-04-01 10:48] LABS: LYMPHOCYTES % (MANUAL) 97 % (19-48); MONOCYTES % (MANUAL) 2 % (3.4-9.0); NEUTROPHILS % (MANUAL) 1 % (40-74); PLATELET ESTIMATE ADEQUATE; PLATELET MORPHOLOGY COMMENT NORMAL; RBC MORPHOLOGY COMMENT NORMAL
--- NOTE | 2020-04-01 11:24 | NUR ---
IM- progress note O/N see below REVIEW OF SYSTEMS: Denies any dizziness. Denies any fever, chills, sweats, nausea, vomiting, diarrhea, headache, chest pain, shortness of breath, back pain. PHYSICAL EXAMINATION VITAL SIGNS: Have been reviewed. GENERAL: tired appearing HEENT: Anicteric. left eye reduced vision CARDIOVASCULAR: Normal S1 and S2. LUNGS: mod bs ABDOMEN: Soft, nontender and nondistended. EXTREMITIES: He has right great toe partial amputated, well-healed. SKIN: Dry. PSYCHIATRIC: Flat affect. NEUROLOGICAL: Alert and oriented times 3. Moves all extremities. MUSCULOSKELETAL: He has a midchest wall scar. LABS: Reviewed. MEDICATIONS: Reviewed. ASSESSMENT: This is a 59yoM Right PNA- iv cefepime/azithromycin UTI- IV cefepime CLL- per hematology DM2- lipid/hba1c CAD with hx CABG PAD- cont ticagrelor Hypertensive heart ds Prop; scd; pepcid dispo: 616 Hba1c/LDL 7/119; cont care; Grant Orozco MD, PhD.
[2020-04-01 14:54] LABS: CREATINE KINASE MB 0.7 ng/mL (0-5.0)
--- NOTE | 2020-04-01 19:14 | NUR ---
REPORT GIVEN TO ONCOMING NURSE, WALKING ROUNDS COMPLETE.
--- NOTE | 2020-04-01 19:15 | NUR ---
RECEIVED BEDSIDE SHIFT REPORT FROM PREVIOUS NURSE. CALL LIGHT WITHIN REACH. PATIENT IN BED.
[2020-04-01] MEDS: ATORVASTATIN 40 MG TAB PO SCH (20:51)
--- NOTE | 2020-04-01 21:12 | NUR ---
CALLED AND TALKED TO DR. PATTEN ABOUT PATIENT'S BLOOD SUGAR OF 351. DR. PATTEN SAID TO INCREASE TO MEDIUM SLIDING SCALE.
[2020-04-02] VITALS (8 sets, daily range): BP systolic 129–179; BP diastolic 61–81
[2020-04-02] MEDS: CEFEPIME 2 GM/NS 0.9% 100 ML 100 ML IV SCH ×3 (05:11→21:42)
[2020-04-02] MEDS: AZITHROMYCIN 500MG/NS 250 ML 250 ML IV SCH (06:20)
[2020-04-02] MEDS: ACETAMINOPHEN 325 MG TAB PO PRN ×2 (06:35→16:09)
--- NOTE | 2020-04-02 06:58 | NUR ---
Received patient lying in bed with eyes open. Respiration even and unlabored without SOB. Denies pain. Call light in reach.
--- NOTE | 2020-04-02 07:42 | NUR ---
GAVE BEDSIDE SHIFT REPORT TO ONCOMING NURSE. CALL LIGHT WITHIN REACH. PATIENT IN BED.
[2020-04-02] MEDS: INSULIN REGULAR, HUMAN 100 UNIT/1 ML 3ML VIAL SQ SCH ×4 (08:16→21:42)
[2020-04-02] MEDS: LOSARTAN POTASSIUM 100 MG TAB PO SCH (08:17)
[2020-04-02] MEDS: BENZONATATE 100 MG CAP PO SCH ×3 (08:17→21:28)
[2020-04-02] MEDS: METOPROLOL TARTRATE 25 MG TAB PO SCH ×2 (08:17→21:29)
--- NOTE | 2020-04-02 08:50 | NUR ---
Non-working PIV to upper right forearm discontinued. Catheter tip intact, no bleeding noted. Started new IV 20g to lower right FA. Patient is afebrile at this time with temperature of 98.9 F.
--- NOTE | 2020-04-02 11:43 | NUR ---
IM- progress note O/N see below REVIEW OF SYSTEMS: Denies any dizziness. Denies any fever, chills, sweats, nausea, vomiting, diarrhea, headache, chest pain, shortness of breath, back pain. PHYSICAL EXAMINATION VITAL SIGNS: Have been reviewed. GENERAL: tired appearing HEENT: Anicteric. left eye reduced vision CARDIOVASCULAR: Normal S1 and S2. LUNGS: mod bs ABDOMEN: Soft, nontender and nondistended. EXTREMITIES: He has right great toe partial amputated, well-healed. SKIN: Dry. PSYCHIATRIC: Flat affect. NEUROLOGICAL: Alert and oriented times 3. Moves all extremities. MUSCULOSKELETAL: He has a midchest wall scar. LABS: Reviewed. MEDICATIONS: Reviewed. ASSESSMENT: This is a 59yoM Right PNA- iv cefepime/azithromycin UTI- IV cefepime CLL- per hematology DM2- lipid/hba1c CAD with hx CABG PAD- cont ticagrelor Hypertensive heart ds Prop; scd; pepcid dispo: 16 Hba1c/LDL 7/119; cont care; 04-02 check wbc. cont care; improving; Grant Orozco MD, PhD.
[2020-04-02 12:37] LABS: HEMATOCRIT 32.3 % (38.2-49.6); HEMOGLOBIN 9.8 g/dL (14.0-18.0); LYMPHOCYTES % 96.9 % (18.0-39.1); MEAN CORPUSCULAR HEMOGLOBIN 32.7 pg (28-32); MEAN CORPUSCULAR HGB CONC 30.3 g/dL (31-35); MEAN CORPUSCULAR VOLUME 107.7 fL (81-99); MONOCYTES % 1.4 % (4.4-11.3); NEUTROPHILS # (AUTO) 2.1 (2.1-6.9); NEUTROPHILS % 1.6 % (38.7-80.0); PLATELET COUNT 202 x10e3/uL (140-360); RED CELL DISTRIBUTION WIDTH 16.7 % (11.7-14.4)
[2020-04-02 18:48] LABS: LYMPHOCYTES % (MANUAL) 96 % (19-48); MONOCYTES % (MANUAL) 2 % (3.4-9.0); NEUTROPHILS % (MANUAL) 2 % (40-74)
[2020-04-02 18:49] LABS: HYPOCHROMASIA SLIGHT; PLATELET ESTIMATE ADEQUATE; PLATELET MORPHOLOGY COMMENT NORMAL; POIKILOCYTOSIS SLIGHT; SMUDGE CELLS MANY
[2020-04-02 18:50] LABS: RBC MORPHOLOGY COMMENT ABNORMAL; TEAR DROP CELLS FEW
[2020-04-02 18:51] LABS: ANISOCYTOSIS MODERATE
--- NOTE | 2020-04-02 19:00 | NUR ---
RECEIVED REPORT FROM PREVIOUS NURSE. CALL LIGHT WITHIN REACH. PATIENT IN BED.
--- NOTE | 2020-04-02 19:00 | NUR ---
Report given to reading instructor. Respiration even and unlabored without SOB. Denies pain. Call light in reach.
--- NOTE | 2020-04-02 19:55 | NUR ---
CALLED AND TALKED TO DR. PATTEN ABOUT PATIENT'S BLOOD SUGAR OF 445. DR. PATTEN SAID TO GIVE 10 UNITS OF LANTUS HS AND START NOW
[2020-04-02] MEDS: INSULIN GLARGINE 100 UNITS/ML VIAL SQ SCH (21:24)
[2020-04-02] MEDS: ATORVASTATIN 40 MG TAB PO SCH (21:28)
[2020-04-03] VITALS (7 sets, daily range): BP systolic 112–180; BP diastolic 62–81
[2020-04-03] MEDS: CEFEPIME 2 GM/NS 0.9% 100 ML 100 ML IV SCH ×3 (05:42→21:26)
[2020-04-03] MEDS: AZITHROMYCIN 500MG/NS 250 ML 250 ML IV SCH (06:33)
--- NOTE | 2020-04-03 07:31 | NUR ---
GAVE BEDSIDE SHIFT REPORT TO ONCOMING NURSE. CALL LIGHT WITHIN REACH. PATIENT IN BED
[2020-04-03] MEDS: INSULIN REGULAR, HUMAN 100 UNIT/1 ML 3ML VIAL SQ SCH ×4 (08:18→22:07)
[2020-04-03] MEDS: LOSARTAN POTASSIUM 100 MG TAB PO SCH (08:19)
[2020-04-03] MEDS: METOPROLOL TARTRATE 25 MG TAB PO SCH ×2 (08:20→21:04)
[2020-04-03] MEDS: BENZONATATE 100 MG CAP PO SCH ×3 (08:20→21:04)
[2020-04-03] MEDS ORDERED: GUAIFENESIN/DEXTROMETHORPHAN LIQD 5 ML UDC NG PRN (12:45)
[2020-04-03] MEDS: GUAIFENESIN/DEXTROMETHORPHAN LIQD 5 ML UDC PO SCH ×2 (14:46→21:04)
--- NOTE | 2020-04-03 15:52 | NUR ---
IM- progress note O/N see below REVIEW OF SYSTEMS: Denies any dizziness. Denies any fever, chills, sweats, nausea, vomiting, diarrhea, headache, chest pain, shortness of breath, back pain. PHYSICAL EXAMINATION VITAL SIGNS: Have been reviewed. GENERAL: tired appearing HEENT: Anicteric. left eye reduced vision CARDIOVASCULAR: Normal S1 and S2. LUNGS: mod bs ABDOMEN: Soft, nontender and nondistended. EXTREMITIES: He has right great toe partial amputated, well-healed. SKIN: Dry. PSYCHIATRIC: Flat affect. NEUROLOGICAL: Alert and oriented times 3. Moves all extremities. MUSCULOSKELETAL: He has a midchest wall scar. LABS: Reviewed. MEDICATIONS: Reviewed. ASSESSMENT: This is a 59yoM Right PNA- iv cefepime/azithromycin UTI- IV cefepime CLL- per hematology DM2- lipid/hba1c CAD with hx CABG PAD- cont ticagrelor Hypertensive heart ds Prop; scd; pepcid dispo: 04-01 Hba1c/LDL 7/119; cont care; 617 check wbc. cont care; improving; 18 sepsis- recovering; Grant Orozco MD, PhD.
[2020-04-03] MEDS: ACETAMINOPHEN 325 MG TAB PO PRN ×3 (16:08→21:27)
--- NOTE | 2020-04-03 18:20 | NUR ---
Verbal order given by Dr. Dixon to get CT ABD/Pelvis with contrast for abd distention and states that it can be done tomorrow.
--- NOTE | 2020-04-03 19:32 | NUR ---
Report given to restaurant shift supervisor. Respiration even and unlabored without SOB. Call light in reach.
--- NOTE | 2020-04-03 19:58 | NUR ---
RECEIVED REPORT FROM 7AM NURSE, PATIENT'S ASLEEP, WILL CONTINUE TO MONITOR.
--- NOTE | 2020-04-03 19:59 | NUR ---
PATIENT WOKE UP, NO COMPLAINTS OF PAIN OR ANY DISCOMFORT.
[2020-04-03] MEDS: ATORVASTATIN 40 MG TAB PO SCH (21:03)
[2020-04-03] MEDS: INSULIN GLARGINE 100 UNITS/ML VIAL SQ SCH (22:06)
[2020-04-04] VITALS (9 sets, daily range): BP systolic 123–180; BP diastolic 62–81
[2020-04-04] MEDS: CEFEPIME 2 GM/NS 0.9% 100 ML 100 ML IV SCH ×3 (05:30→21:22)
[2020-04-04 05:34] LABS: LYMPHOCYTES # (AUTO) 128.9 (1.0-3.2); LYMPHOCYTES % 97.3 % (18.0-39.1); MEAN CORPUSCULAR HEMOGLOBIN 32.1 pg (28-32); MEAN CORPUSCULAR VOLUME 107.1 fL (81-99); MONOCYTES # (AUTO) 1.8 (0.2-0.8); MONOCYTES % 1.3 % (4.4-11.3); NEUTROPHILS # (AUTO) 1.6 (2.1-6.9); NEUTROPHILS % 1.3 % (38.7-80.0); PLATELET COUNT 187 x10e3/uL (140-360); RED CELL DISTRIBUTION WIDTH 16.3 % (11.7-14.4)
[2020-04-04 05:39] LABS: ANION GAP 13.2 mmol/L (8-16); BLOOD UREA NITROGEN 16 mg/dL (7-26); BUN/CREATININE RATIO 17 (6-25); CALCIUM 8.2 mg/dL (8.4-10.2); CARBON DIOXIDE 23 mmol/L (22-29); CHLORIDE 103 mmol/L (98-107); CREATININE, SERUM 0.93 mg/dL (0.72-1.25); EST GLOMERULAR FILTRATION RATE > 60 ML/MIN (60-); GLUCOSE 206 mg/dL (74-118); POTASSIUM 4.2 mmol/L (3.5-5.1); SODIUM 135 mmol/L (136-145)
[2020-04-04] MEDS: AZITHROMYCIN 500MG/NS 250 ML 250 ML IV SCH (06:18)
--- NOTE | 2020-04-04 07:26 | NUR ---
REPORT GIVEN TO AM NURSE, PATIENT RESTING ON THE SOFA, RECEIVING ANTIBIOTICS PER IV, NO COMPLAINTS OF PAIN. MEDICATED FOR INCREASED TEMPERATURE. REMAIN NPO FOR CT OF ABDOMEN. CALL LIGHT REMAIN IN REACH. INFORMED TO CALL WHEN HE NEEDS ASSISTANCE WITH ANYTHING.
[2020-04-04 07:47] LABS: ANISOCYTOSIS SLIGHT; LYMPHOCYTES % (MANUAL) 98 % (19-48); MONOCYTES % (MANUAL) 1 % (3.4-9.0); NEUTROPHILS % (MANUAL) 1 % (40-74); OVALOCYTES FEW; SMUDGE CELLS MODERATE
[2020-04-04 07:48] LABS: PLATELET ESTIMATE ADEQUATE; PLATELET MORPHOLOGY COMMENT NORMAL; RBC MORPHOLOGY COMMENT ABNORMAL
[2020-04-04] MEDS: LOSARTAN POTASSIUM 100 MG TAB PO SCH (08:29)
[2020-04-04] MEDS: BENZONATATE 100 MG CAP PO SCH ×3 (08:29→21:21)
[2020-04-04] MEDS: METOPROLOL TARTRATE 25 MG TAB PO SCH ×2 (08:29→18:09)
[2020-04-04] MEDS: GUAIFENESIN/DEXTROMETHORPHAN LIQD 5 ML UDC PO SCH ×2 (08:29→21:21)
[2020-04-04] MEDS: INSULIN REGULAR, HUMAN 100 UNIT/1 ML 3ML VIAL SQ SCH ×4 (08:30→21:23)
--- NOTE | 2020-04-04 08:46 | NUR ---
IM- progress note O/N see below REVIEW OF SYSTEMS: Denies any dizziness. Denies any fever, chills, sweats, nausea, vomiting, diarrhea, headache, chest pain, shortness of breath, back pain. PHYSICAL EXAMINATION VITAL SIGNS: Have been reviewed. GENERAL: tired appearing HEENT: Anicteric. left eye reduced vision CARDIOVASCULAR: Normal S1 and S2. LUNGS: mod bs ABDOMEN: Soft, nontender and nondistended. EXTREMITIES: He has right great toe partial amputated, well-healed. SKIN: Dry. PSYCHIATRIC: Flat affect. NEUROLOGICAL: Alert and oriented times 3. Moves all extremities. MUSCULOSKELETAL: He has a midchest wall scar. LABS: Reviewed. MEDICATIONS: Reviewed. ASSESSMENT: This is a 59yoM Right PNA- iv cefepime/azithromycin UTI- IV cefepime CLL- per hematology DM2- lipid/hba1c CAD with hx CABG PAD- cont ticagrelor Hypertensive heart ds Prop; scd; pepcid dispo: 6-16 Hba1c/LDL 7/119; cont care; 6-17 check wbc. cont care; improving; 6-18 sepsis- recovering; 6-19 control glucose; on abx; febrile overnight; Grant Orozco MD, PhD.
[2020-04-04] MEDS ORDERED: DIATRIZOATE MEGL/DIATRIZOA SOD 30 ML BTL PO ONE (10:24)
--- NOTE | 2020-04-04 13:39 | Diagnostic Imaging Report ---
EXAM: CT Abdomen and Pelvis WITH intravenous contrast INDICATION: Abdominal distention COMPARISON: Chest CT of 11/20/2019 TECHNIQUE: Abdomen and pelvis were scanned utilizing a multidetector helical scanner from the lung base to the pubic symphysis after administration of IV contrast. Coronal and sagittal reformations were obtained. Routine protocol was performed. Scan was performed during portal venous phase. IV CONTRAST: 100mL of Isovue 370 ORAL CONTRAST: Water RADIATION DOSE: Total DLP: 751 mGy*cm Dose modulation, iterative reconstruction, and/or weight based adjustment of the mA/kV was utilized to reduce the radiation dose to as low as reasonably achievable. FINDINGS: LOWER THORAX: Right lower lobe consolidation with air bronchograms. 2 cm left lower lobe posterior subpleural nodule. HEPATOBILIARY: No focal liver lesion. Focal fat adjacent to the falciform ligament. No biliary ductal dilation. Unremarkable gallbladder. SPLEEN: No splenomegaly. PANCREAS: No focal masses or ductal dilatation. ADRENALS: No adrenal nodules. KIDNEYS/URETERS: 2 mm right upper pole and left mid pole nonobstructive renal calculi. No hydronephrosis. No solid mass lesions. PELVIC ORGANS/BLADDER: Unremarkable. PERITONEUM / RETROPERITONEUM: No free air or fluid. LYMPH NODES: No lymphadenopathy. VESSELS: Mild scattered atherosclerotic calcifications of the nonaneurysmal abdominal aorta and major branches. GI TRACT: Diverticulosis without CT evidence of diverticulitis. No abnormal bowel thickening. No bowel obstruction. Normal appendix. BONES AND SOFT TISSUES: No acute osseous injury. No suspicious lytic or blastic lesions. IMPRESSION: Right lung base consolidation with air bronchograms consistent with pneumonia. 2 cm left lower lobe posterior subpleural nodule may also be infectious/inflammatory. Follow-up chest CT in 3 months is recommended to evaluate for stability/resolution. Diverticulosis without CT evidence of diverticulitis. Right and left 2 mm nonobstructive renal calculi. Signed by: Anjali Garcias MD on 04/04/2020 1:36 PM
[2020-04-04] MEDS ORDERED: SODIUM CHLORIDE 0.9% 50ML 50 ML ONE (13:48)
[2020-04-04] MEDS ORDERED: IOPAMIDOL 370 MG/ML 200 ML INFUS..BTL INJ ONE (13:48)
--- NOTE | 2020-04-04 16:34 | NUR ---
Placed call to Dr. Grant Orozco made aware patient had 2 consecutive blood pressures of @1200 pm158/75 and sat 1600 pm 152/[address] Orozco that patient has Lopressor 12.5 mg PO every 12 hours, and Losartan 100 mg daily. Received orders to discontinue Lopressor 12.5 mg and give Lopressor 50 mg every 12 hours and give first now.
[2020-04-04] MEDS ORDERED: METOPROLOL TARTRATE 50 MG TAB PO SCH (16:45)
--- NOTE | 2020-04-04 19:05 | NUR ---
RECEIVED REPORT FROM PREVIOUS NURSE. CALL LIGHT WITHIN REACH. PATIENT IN BED.
[2020-04-04] MEDS: ATORVASTATIN 40 MG TAB PO SCH (21:21)
[2020-04-04] MEDS: INSULIN GLARGINE 100 UNITS/ML VIAL SQ SCH (21:23)
[2020-04-04] MEDS: ACETAMINOPHEN 325 MG TAB PO PRN (21:37)
[2020-04-05] VITALS (8 sets, daily range): BP systolic 122–150; BP diastolic 67–75
[2020-04-05] MEDS: CEFEPIME 2 GM/NS 0.9% 100 ML 100 ML IV SCH ×3 (05:10→21:00)
[2020-04-05] MEDS: METOPROLOL TARTRATE 25 MG TAB PO SCH ×2 (05:14→16:48)
[2020-04-05 05:37] LABS: LYMPHOCYTES % 97.6 % (18.0-39.1); MEAN CORPUSCULAR HEMOGLOBIN 32.1 pg (28-32); MEAN CORPUSCULAR VOLUME 107.1 fL (81-99); MONOCYTES # (AUTO) 1.2 (0.2-0.8); NEUTROPHILS # (AUTO) 1.6 (2.1-6.9); NEUTROPHILS % 1.3 % (38.7-80.0); PLATELET COUNT 187 x10e3/uL (140-360); RED CELL DISTRIBUTION WIDTH 16.2 % (11.7-14.4)
--- NOTE | 2020-04-05 05:51 | NUR ---
CALLED AND LEFT A VOICEMAIL FOR DR. PATTEN ABOUT THE PATIENT HAS A CRITICAL LAB VALUE OF WBC OF 124.94.
[2020-04-05 05:54] LABS: ANION GAP 9.8 mmol/L (8-16); BLOOD UREA NITROGEN 15 mg/dL (7-26); BUN/CREATININE RATIO 19 (6-25); CALCIUM 8.4 mg/dL (8.4-10.2); CARBON DIOXIDE 25 mmol/L (22-29); CHLORIDE 105 mmol/L (98-107); EST GLOMERULAR FILTRATION RATE > 60 ML/MIN (60-); GLUCOSE 159 mg/dL (74-118); POTASSIUM 3.8 mmol/L (3.5-5.1); SODIUM 136 mmol/L (136-145)
[2020-04-05] MEDS: AZITHROMYCIN 500MG/NS 250 ML 250 ML IV SCH (06:18)
--- NOTE | 2020-04-05 07:12 | NUR ---
HOURLY ROUNDING PERFORMED. PATIENT IN BED. GAVE REPORT TO ONCOMING NURSE. CALL LIGHT WITHIN REACH.
[2020-04-05] MEDS: INSULIN REGULAR, HUMAN 100 UNIT/1 ML 3ML VIAL SQ SCH ×4 (07:30→20:48)
[2020-04-05 08:25] LABS: LYMPHOCYTES % (MANUAL) 97 % (19-48); MONOCYTES % (MANUAL) 1 % (3.4-9.0); NEUTROPHILS % (MANUAL) 2 % (40-74); RBC MORPHOLOGY COMMENT ABNORMAL; SMUDGE CELLS MODERATE
[2020-04-05 08:26] LABS: ANISOCYTOSIS SLIGHT; OVALOCYTES FEW; PLATELET ESTIMATE ADEQUATE; PLATELET MORPHOLOGY COMMENT NORMAL
[2020-04-05] MEDS: BENZONATATE 100 MG CAP PO SCH ×3 (09:20→20:42)
[2020-04-05] MEDS: GUAIFENESIN/DEXTROMETHORPHAN LIQD 5 ML UDC PO SCH ×2 (09:20→20:43)
[2020-04-05] MEDS: LOSARTAN POTASSIUM 100 MG TAB PO SCH (09:20)
--- NOTE | 2020-04-05 12:17 | NUR ---
IM- progress note O/N see below REVIEW OF SYSTEMS: Denies any dizziness. Denies any fever, chills, sweats, nausea, vomiting, diarrhea, headache, chest pain, shortness of breath, back pain. PHYSICAL EXAMINATION VITAL SIGNS: Have been reviewed. GENERAL: tired appearing HEENT: Anicteric. left eye reduced vision CARDIOVASCULAR: Normal S1 and S2. LUNGS: mod bs ABDOMEN: Soft, nontender and nondistended. EXTREMITIES: He has right great toe partial amputated, well-healed. SKIN: Dry. PSYCHIATRIC: Flat affect. NEUROLOGICAL: Alert and oriented times 3. Moves all extremities. MUSCULOSKELETAL: He has a midchest wall scar. LABS: Reviewed. MEDICATIONS: Reviewed. ASSESSMENT: This is a 59yoM Right PNA- iv cefepime/azithromycin UTI- IV cefepime CLL- per hematology DM2- lipid/hba1c CAD with hx CABG PAD- cont ticagrelor Hypertensive heart ds Prop; scd; pepcid dispo: 6-16 Hba1c/LDL 7/119; cont care; 6-17 check wbc. cont care; improving; 6-18 sepsis- recovering; 6-19 control glucose; on abx; febrile overnight; 6-20 Left subpleural nodule 2cm- needs f/u. Add more lantus. Grant Orozco MD, PhD.
[2020-04-05] MEDS: INSULIN GLARGINE 100 UNITS/ML VIAL SQ SCH ×2 (12:28→20:48)
--- NOTE | 2020-04-05 12:31 | NUR ---
Nutrition Screen Note RD Recommendation for Physician: Continue diet as ordered Plan of Care: RD following monitoring for tolerance and adequacy Nutrition reason for involvement: LOS Primary Diagnose(s): CLL, Fever, Pneumonia, UTI, partial nephrectomy PMH: HTN, dyslipidemia, CAD, hiatal hernia, left adrenal nodule, left upper pole renal lession Ht:74 in Wt:200 lbs BMI:25.7 kg/m2 IBW:[address] Assessment: Initial encounter with patient. Pt denies any nausea, vomiting. Pt states he has had some loose stools. Pt denies any difficulty chewing or swallowing at this time. Pt has had a decreased appetite since admit. Pt denies any significant wt changes and pt is able to feed himself. Current Diet: 1800 ADA Malnutrition Evaluation (04/05/2020) The patient does not meet criteria for a specified degree of malnutrition at this time. Will re-evaluate at follow-up as appropriate. Diet Education Needs Assessment: Diet education not indicated at this time. Diet tolerance: Tolerating Po diet well Nutrition Care Level: low Ronal Shukla RD, AFWN, [facility] Addendum: 04/05/20 at 1309 by [address] DIET RD note enetered in the wrong chart
--- NOTE | 2020-04-05 13:09 | NUR ---
Nutrition Screen Note RD Recommendation for Physician: Continue diet as ordered Plan of Care: RD following monitoring for tolerance and adequacy Nutrition reason for involvement: LOS Primary Diagnose(s): CLL, Fever, Pneumonia, UTI, partial nephrectomy PMH: T2DM, CAD, CABG, HTN, Ht:74 in Wt:200 lbs BMI:25.7 kg/m2 IBW:[address] Assessment: Initial encounter with patient. Pt denies any nausea, vomiting, or diarrhea. Pt denies any difficulty chewing or swallowing at this time. Pt has had a good appetite since admit. Pt denies any significant wt changes and pt is able to feed himself. Current Diet: 1800 ADA Malnutrition Evaluation (04/05/2020) The patient does not meet criteria for a specified degree of malnutrition at this time. Will re-evaluate at follow-up as appropriate. Diet Education Needs Assessment: Diet education not indicated at this time. Diet tolerance: Tolerating Po diet well Nutrition Care Level: lucille Shukla RD, LD, CNSC
--- NOTE | 2020-04-05 18:59 | NUR ---
WALKING ROUNDS PERFORMED, RECEIVED PT SITTING ON COUCH, AAOX3, RR EVEN AND NON-LABORED, ON ROOM AIR. NO S/SX OF DISTRESS NOTED. LEFT PT SITTING ON COUCH, CALL LIGHT WITHIN REACH.
[2020-04-05] MEDS: ATORVASTATIN 40 MG TAB PO SCH (20:42)
[2020-04-06] VITALS: BP 144/74
[2020-04-06 04:00] VITALS: BP 143/83
[2020-04-06] MEDS: METOPROLOL TARTRATE 25 MG TAB PO SCH (05:22)
[2020-04-06] MEDS: CEFEPIME 2 GM/NS 0.9% 100 ML 100 ML IV SCH ×2 (05:22→12:58)
[2020-04-06] MEDS: AZITHROMYCIN 500MG/NS 250 ML 250 ML IV SCH (06:28)
[2020-04-06] MEDS: INSULIN REGULAR, HUMAN 100 UNIT/1 ML 3ML VIAL SQ SCH ×2 (07:30→11:30)
[2020-04-06 07:50] VITALS: BP 134/72
[2020-04-06 08:33] VITALS: BP 134/72
[2020-04-06] MEDS: INSULIN GLARGINE 100 UNITS/ML VIAL SQ SCH (09:00)
[2020-04-06] MEDS: GUAIFENESIN/DEXTROMETHORPHAN LIQD 5 ML UDC PO SCH (09:03)
[2020-04-06] MEDS: LOSARTAN POTASSIUM 100 MG TAB PO SCH (09:03)
[2020-04-06] MEDS: BENZONATATE 100 MG CAP PO SCH ×2 (09:03→15:00)
[2020-04-06 11:31] VITALS: BP 148/71
[2020-04-06] MEDS ORDERED: TESSALON PERLE100 MG PO (15:00)
[2020-04-06] MEDS ORDERED: CEFUROXIME250 MG PO (15:00)
[2020-04-06] MEDS ORDERED: ZITHROMAX500 MG PO (15:00)
[2020-04-06] MEDS ORDERED: Guaifenesin/Dextromethorphan PO (15:00)
[2020-04-06] MEDS ORDERED: LOPRESSOR25 MG PO (15:00)
--- NOTE | 2020-04-06 15:04 | NUR ---
D/C summary Principal Dx: Right PNA- iv cefepime/azithromycin UTI- IV cefepime Left subplerual nodule 2cm Sepsis POA Secodnary Dx: CLL- per hematology DM2- lipid/hba1c CAD with hx CABG PAD- cont ticagrelor Hypertensive heart ds Prop; scd; pepcid dispo: 6- Hba1c/LDL 7/119; cont care; 6- check wbc. cont care; improving; 6- sepsis- recovering; - control glucose; on abx; febrile overnight; 6- Left subpleural nodule 2cm- needs f/u. Add more lantus. d/c home stable d/C>35mins f/u pcp 2 days and 1 week Grant Orozco MD, PhD.
[2020-04-06 15:33] VITALS: BP 142/70
--- NOTE | 2020-04-06 16:00 | NUR ---
PT WALKED WITH RT AND DIDN'T QUALIFY FOR HOME 02.
--- NOTE | 2020-04-06 17:08 | NUR ---
PT5
--- NOTE | 2020-04-06 17:09 | NUR ---
PT DISCHARGED HOME WITH HIS AND WAS ASKED TO FOLLOW UP WITH HIS PCP IN 1 WEEK, AND TO FOLLOW UP WITH DR. BROWN IN 2-4 DAYS. NO C/O PAIN AT THIS TIME NO DISTRESS NOTED, PT IV SITE REMOVED NO SWELLING NO REDNESS TO SITE.
== END 2020-04-06 17:02 | disposition home or self-care (01) | DRG 871 ==
LOC: ER 04:48 → ERHOLD 06:35 → MED/SURG2 22:56
PROVIDERS: ADMIT Internal Medicine; ATTEND Internal Medicine
DX: A41.9 Sepsis, unspecified organism (principal); J18.9 Pneumonia, unspecified organism; N39.0 Urinary tract infection, site not specified; C91.10 Chronic lymphocytic leukemia of B-cell type not having achieved remission; I11.9 Hypertensive heart disease without heart failure; Z95.1 Presence of aortocoronary bypass graft; E11.51 Type 2 diabetes mellitus with diabetic peripheral angiopathy without gangrene; Z79.4 Long term (current) use of insulin; Z11.59 Encounter for screening for other viral diseases
CPT/HCPCS: 36415; 71045; 74177; 80048; 80053; 80061; 81001; 82550; 82553; 82948; 83036; 83518; 83605; 84484; 85025; 85610; 85730; 87040; 87070; 87086; 87400; 87635; 93005; 99284; J0456; J0692; J1815; J1817; J2405; J7030; J7050; Q9967

== ENCOUNTER → 2020-05-27 | Outpatient (CLI) | payer BC ==
[~2020-05-27] MED LIST changes: +CEFUROXIME250 MG PO; +Guaifenesin/Dextromethorphan PO; +LOPRESSOR25 MG PO; +ZITHROMAX500 MG PO
--- NOTE | 2020-05-27 14:39 | Diagnostic Imaging Report ---
EXAMINATION: CHEST 2 VIEWS INDICATION: Pneumonia COMPARISON: Chest radiograph 03/31/2020 FINDINGS: LINES/TUBES:None LUNGS:The lungs are well-inflated. Improving right lung base airspace opacity. No new focal consolidation or pulmonary edema. PLEURA:No pleural effusion or pneumothorax. MEDIASTINUM:The cardiomediastinal silhouette appears unchanged in size and shape. BONES/SOFT TISSUES:No acute osseous injury. Sternotomy wires in place. ABDOMEN:No free air under the diaphragm. IMPRESSION: Improving right lung base opacity. Signed by: Anjali Garcias MD on 05/27/2020 2:35 PM
== END ==
LOC: RAD 13:55
PROVIDERS: ATTEND Family Medicine
DX: J18.9 Pneumonia, unspecified organism (principal)
CPT/HCPCS: 71046

== ENCOUNTER → 2020-07-07 | Outpatient (CLI) | payer BC ==
--- NOTE | 2020-07-07 14:03 | Diagnostic Imaging Report ---
EXAMINATION: CHEST 2 VIEWS INDICATION: Pneumonia COMPARISON: Chest radiograph 09/05/2020 FINDINGS: LINES/TUBES:None LUNGS:The lungs are well-inflated. Mild left basilar patchy opacity. PLEURA:No pleural effusion or pneumothorax. MEDIASTINUM:The cardiomediastinal silhouette appears normal in size and shape. Postoperative findings of prior CABG. BONES/SOFT TISSUES:No acute osseous injury. Sternotomy wires in place. ABDOMEN:No free air under the diaphragm. IMPRESSION: Mild left basilar opacity, more likely subsegmental atelectasis than superimposed aspiration or pneumonia. Signed by: Anjali Garcias MD on 07/07/2020 2:00 PM
== END ==
LOC: RAD 13:29
PROVIDERS: ATTEND Family Medicine
DX: J18.9 Pneumonia, unspecified organism (principal)
CPT/HCPCS: 71046

== ENCOUNTER → 2020-08-11 | Outpatient (CLI) | payer BC ==
--- NOTE | 2020-08-11 14:47 | Diagnostic Imaging Report ---
EXAM: CT Chest WITHOUT intravenous contrast 08/11/2020 2:00 PM INDICATION: ^[id number] ^1400 ^ABN FINDING ON DX IMG COMPARISON: 07/06 11/05 and 11/20/2019 TECHNIQUE: Chest was scanned utilizing a multidetector helical scanner from the lung apex through the level of the adrenal glands without administration of IV contrast. Coronal and sagittal reformations were obtained. Routine protocol was performed. IV CONTRAST: None RADIATION DOSE: Total DLP: 563 mGy*cm. Dose modulation, iterative reconstruction, and/or weight based adjustment of the mA/kV was utilized to reduce the radiation dose to as low as reasonably achievable. COMPLICATIONS: None FINDINGS: LINES/ TUBES: None. LUNGS AND AIRWAYS: Large airways are patent. There are a few interstitial airspace opacities within the superior aspect of the right lower lobe. There is also dependent subsegmental atelectasis at the left lung base. Negative for focal lobar consolidation. PLEURA: The pleural spaces are clear. HEART AND MEDIASTINUM: The thyroid gland is normal. Reinitiation of bilateral subpectoral and axillary lymphadenopathy, not significantly changed when compared to 11/20/2019. Multiple nonenlarged mediastinal lymph nodes are stable. The heart is normal in size. There is no pericardial effusion. Multiple coronary artery calcifications are noted. Midline sternotomy changes are stable. UPPER ABDOMEN: Stable gastrohepatic and upper abdominal enlarged lymph nodes for example (axial image 119). BONES: No acute osseous abnormality. Moderate multilevel degenerative changes of the spine are noted. No suspicious lytic or blastic lesion. SOFT TISSUES: Unremarkable. IMPRESSION: 1. Stable subpectoral, axillary and upper abdominal severe lymphadenopathy. 2. Ill-defined reticular opacities at the superior aspect of the right lower lobe may relate to postinfectious scarring from recent right lower lobe consolidation. Signed by: Geoff Manrique MD on 08/11/2020 2:43 PM
== END ==
LOC: CT 13:30
PROVIDERS: ATTEND Internal Medicine
DX: R91.8 Other nonspecific abnormal finding of lung field (principal)
CPT/HCPCS: 71250

== ENCOUNTER 2021-04-28 21:51 | Emergency (ER) | payer BC ==
[~2021-04-28] VITALS: Ht 188 cm; Wt 92.5 kg
[2021-04-28 23:05] LABS: BASOPHILS % 0.3 % (0.0-1.0); HEMATOCRIT 44.1 % (38.2-49.6); HEMOGLOBIN 14.1 g/dL (14.0-18.0); LYMPHOCYTES # (AUTO) 0.3 (1.0-3.2); MEAN CORPUSCULAR HEMOGLOBIN 28.7 pg (28-32); MEAN CORPUSCULAR VOLUME 89.8 fL (81-99); MONOCYTES # (AUTO) 0.7 (0.2-0.8); MONOCYTES % 20.2 % (4.4-11.3); NEUTROPHILS # (AUTO) 2.2 (2.1-6.9); NEUTROPHILS % 67.6 % (38.7-80.0); PLATELET COUNT 202 x10e3/uL (140-360); RED BLOOD COUNT 4.91 x10e6/uL (4.3-5.7); RED CELL DISTRIBUTION WIDTH 16.4 % (11.7-14.4)
[2021-04-28 23:24] LABS: ALBUMIN 3.4 g/dL (3.5-5.0); ALBUMIN/GLOBULIN RATIO 0.8 (0.8-2.0); ANION GAP 14.8 mmol/L (8-16); CALCIUM 8.9 mg/dL (8.4-10.2); CREATININE, SERUM 1.23 mg/dL (0.72-1.25); POTASSIUM 3.8 mmol/L (3.5-5.1)
[2021-04-29] MEDS ORDERED: ACYCLOVIR SODIUM INJ 1,000 MG in SODIUM CHLORIDE 0.9% 250ML 250 ML IV STA (00:14)
[2021-04-29] MEDS ORDERED: ACYCLOVIR800 MG PO (01:04)
[2021-04-29] MEDS ORDERED: TYLENOL # 31 EA PO (01:14)
[2021-04-29] MEDS ORDERED: FLUORESCEIN SOD(OPTH) 1 MG STRP OP ONE (01:15)
[2021-04-29] MEDS ORDERED: ACETAMINOPHEN/CODEINE 300MG - 30MG TAB PO ONE (01:15)
[2021-04-29] MEDS ORDERED: FLUORESCEIN SOD(OPTH) 1 MG STRP ONE ×2 (01:18)
[2021-04-29] MEDS ORDERED: EYE IRRIGATION (OPTH) 120 ML BTL ONE ×2 (01:18→01:19)
[2021-04-29] MEDS ORDERED: TETRACAINE HCL 0.5% OPTH SOLN 4 ML BTL ONE (01:18)
[2021-04-29] MEDS ORDERED: ACETAMINOPHEN/CODEINE 300MG - 30MG TAB ONE (01:23)
[2021-04-29 01:33] LABS: CLARITY,URINE CLEAR (CLEAR); COLOR,URINE YELLOW (YELLOW); KETONES,URINE NEGATIVE (NEGATIVE); LEUKOCYTE ESTERASE ,URINE NEGATIVE (NEGATIVE); NITRITE,URINE NEGATIVE (NEGATIVE); PROTEIN,URINE DIPSTICK TRACE (NEGATIVE); URINE UROBILINOGEN 0.2 mg/dL (0.2 - 1)
[2021-04-29 01:39] LABS: BACTERIA,URINE FEW /HPF; EPITHELIAL CELLS,URINE MODERATE /LPF
[2021-04-29 03:40] VITALS: BP 134/81
== END 2021-04-29 03:45 | disposition home or self-care (01) ==
LOC: ER 23:07
DX: B01.9 Varicella without complication (principal); R50.9 Fever, unspecified; E11.65 Type 2 diabetes mellitus with hyperglycemia; I10 Essential (primary) hypertension; E78.5 Hyperlipidemia, unspecified; H40.9 Unspecified glaucoma; C95.91 Leukemia, unspecified, in remission; I25.2 Old myocardial infarction
CPT/HCPCS: 36415; 71045; 80053; 81001; 83605; 85025; 87040; 99283; J0133; J7050

== ENCOUNTER 2021-05-01 10:53 | Emergency (ER) | payer BC ==
[~2021-05-01] VITALS: Ht 188 cm; Wt 92.5 kg
[~2021-05-01 10:53] MED LIST changes: +ACYCLOVIR800 MG PO; +TYLENOL # 31 EA PO
[2021-05-01] MEDS ORDERED: ACYCLOVIR SODIUM INJ 1,000 MG in SODIUM CHLORIDE 0.9% 250ML 250 ML IV NR (11:17)
[2021-05-01] MEDS ORDERED: SODIUM CHLORIDE 0.9% 1000ML 1,000 ML IV STA (11:17)
[2021-05-01 12:05] LABS: BASOPHILS % 0.4 % (0.0-1.0); HEMATOCRIT 40.8 % (38.2-49.6); HEMOGLOBIN 13.1 g/dL (14.0-18.0); MEAN CORPUSCULAR HEMOGLOBIN 28.4 pg (28-32); MEAN CORPUSCULAR HGB CONC 32.1 g/dL (31-35); MEAN CORPUSCULAR VOLUME 88.5 fL (81-99); MONOCYTES # (AUTO) 0.8 (0.2-0.8); MONOCYTES % 14.8 % (4.4-11.3); NEUTROPHILS # (AUTO) 3.5 (2.1-6.9); NEUTROPHILS % 64.9 % (38.7-80.0); PLATELET COUNT 177 x10e3/uL (140-360); RED BLOOD COUNT 4.61 x10e6/uL (4.3-5.7); RED CELL DISTRIBUTION WIDTH 16.4 % (11.7-14.4)
[2021-05-01 12:24] LABS: ALBUMIN 3.1 g/dL (3.5-5.0); ALBUMIN/GLOBULIN RATIO 0.8 (0.8-2.0); ANION GAP 16.9 mmol/L (8-16); CALCIUM 8.1 mg/dL (8.4-10.2); CREATININE, SERUM 1.04 mg/dL (0.72-1.25); POTASSIUM 3.9 mmol/L (3.5-5.1)
[2021-05-01 16:57] VITALS: BP 133/84
[2021-05-01 17:07] LABS: LYMPHOCYTES % (MANUAL) 14 % (19-48); MONOCYTES % (MANUAL) 9 % (3.4-9.0); NEUTROPHILS % (MANUAL) 72 % (40-74); PLATELET ESTIMATE ADEQUATE; PLATELET MORPHOLOGY COMMENT NORMAL; RBC MORPHOLOGY COMMENT NORMAL
== END 2021-05-01 16:45 | disposition home or self-care (01) ==
LOC: ER 11:09
DX: R21 Rash and other nonspecific skin eruption (principal); R41.82 Altered mental status, unspecified; I10 Essential (primary) hypertension; E11.9 Type 2 diabetes mellitus without complications; E78.5 Hyperlipidemia, unspecified
CPT/HCPCS: 36415; 70450; 71045; 80053; 85025; 99284

== ENCOUNTER 2022-05-25 06:30 | Inpatient (IN) | payer BC ==
[2022-05-25] VITALS (24 sets, daily range): BP systolic 119–175; BP diastolic 61–109
[~2022-05-25] VITALS: Ht 188 cm; Wt 89.2 kg
[2022-05-25 07:54] LABS: BASOPHILS % 0.2 % (0.0-1.0); HEMATOCRIT 40.7 % (38.2-49.6); HEMOGLOBIN 13.5 g/dL (14.0-18.0); LYMPHOCYTES # (AUTO) 0.3 (1.0-3.2); MEAN CORPUSCULAR HEMOGLOBIN 33.2 pg (28-32); MEAN CORPUSCULAR HGB CONC 33.2 g/dL (31-35); MONOCYTES # (AUTO) 0.6 (0.2-0.8); MONOCYTES % 9.6 % (4.4-11.3); NEUTROPHILS # (AUTO) 5.4 (2.1-6.9); NEUTROPHILS % 85.9 % (38.7-80.0); PLATELET COUNT 185 x10e3/uL (140-360); RED BLOOD COUNT 4.07 x10e6/uL (4.3-5.7); RED CELL DISTRIBUTION WIDTH 14.5 % (11.7-14.4)
[2022-05-25 08:07] LABS: INR 0.95; PROTHROMBIN TIME 13.6 seconds (11.9-14.5)
[2022-05-25 08:08] LABS: PARTIAL THROMBOPLASTIN TIME 28.1 seconds (23.8-35.5)
[2022-05-25 08:11] LABS: STREPTOCOCCUS GRP A ANTIGEN NEGATIVE (NEGATIVE)
[2022-05-25 08:23] LABS: CREATINE KINASE MB 32.3 ng/mL (0-5.0)
[2022-05-25 08:26] LABS: BAND NEUTROPHILS % (MANUAL) 1 %; LYMPHOCYTES % (MANUAL) 3 % (19-48); METAMYELOCYTES % (MANUAL) 2 % (0-0); MONOCYTES % (MANUAL) 4 % (3.4-9.0); MYELOCYTES % (MANUAL) 1 % (0-0); NEUTROPHILS % (MANUAL) 88 % (40-74)
[2022-05-25 08:28] LABS: PLATELET ESTIMATE ADEQUATE; PLATELET MORPHOLOGY COMMENT NORMAL
[2022-05-25 08:31] LABS: ALBUMIN 3.3 g/dL (3.5-5.0); ALBUMIN/GLOBULIN RATIO 0.8 (0.8-2.0); ANION GAP 11.9 mmol/L (8-16); CALCIUM 8.6 mg/dL (8.4-10.2); CREATININE, SERUM 0.92 mg/dL (0.72-1.25); MAGNESIUM 2.1 MG/DL (1.3-2.1); POTASSIUM 3.9 mmol/L (3.5-5.1)
[2022-05-25] MEDS ORDERED: NITROGLYCERIN 0.4 MG SUBL SL PRN (09:00)
[2022-05-25] MEDS ORDERED: ONDANSETRON HCL INJ 2MG/ML 2ML 2 MG/ML VIAL IV PRN (09:00)
[2022-05-25] MEDS ORDERED: Morphine 2mg Syringe 2 MG/ML SYR IV PRN ×2 (09:00→19:15)
[2022-05-25] MEDS ORDERED: HEPARIN SOD (PORCINE) 5,000 UNIT/ML VIAL IV ONE (09:00)
[2022-05-25] MEDS ORDERED: ASPIRIN 81 MG CHEW TAB PO ONE (09:00)
[2022-05-25] MEDS ORDERED: DEXTROSE 50% SYRINGE 50 ML IV PRN (09:00)
[2022-05-25] MEDS ORDERED: SODIUM CHLORIDE 0.9% 1000ML 1,000 ML IV SCH ×2 (09:00→12:00)
[2022-05-25] MEDS ORDERED: HEPARIN 25,000 UNIT 1,000 UNIT in DEXTROSE 5% 250ML 250 ML IV SCH (09:00)
[2022-05-25] MEDS ORDERED: HEPARIN 25,000 UNIT DRIP IV ONE (09:06)
[2022-05-25] MEDS ORDERED: ASPIRIN 81 MG ENTERIC COATED PO ONE (09:07)
[2022-05-25] MEDS: INSULIN LISPRO 100 UNIT/1 ML 3ML VIAL SQ SCH ×2 (10:27→16:30)
[2022-05-25] MEDS: LOSARTAN POTASSIUM 100 MG TAB PO SCH (12:21)
[2022-05-25] MEDS: METOPROLOL TARTRATE 50 MG TAB PO SCH ×2 (12:22→16:46)
[2022-05-25 12:33] LABS: CHOL/HDL RATIO 4.1 (3.9-4.7)
[2022-05-25 13:48] LABS: CREATINE KINASE MB 95.9 ng/mL (0-5.0)
[2022-05-25] MEDS: FAMOTIDINE 20 MG TAB PO SCH (16:30)
[2022-05-25] MEDS ORDERED: METOPROLOL TARTRATE 50 MG TAB PO SCH (17:00)
[2022-05-25] MEDS ORDERED: NITROGLYCERIN/D5W 200 MCG/ML 250 ML ONE (17:44)
[2022-05-25] MEDS ORDERED: SODIUM CHLORIDE 0.9% 1000ML 1,000 ML ONE (17:44)
[2022-05-25] MEDS ORDERED: IOPAMIDOL 370 MG/ML 100 ML INFUS..BTL INJ ONE ×2 (17:44→18:38)
[2022-05-25] MEDS ORDERED: HEPARIN SOD/SOD CHLORIDE 2,000 ML ONE (17:44)
[2022-05-25] MEDS ORDERED: MIDAZOLAM HCL 2 MG/2 ML VIAL ONE (17:55)
[2022-05-25] MEDS ORDERED: FENTANYL CITRATE/PF 100MCG/2 ML INJ ONE (17:56)
[2022-05-25] MEDS ORDERED: ADENOSINE 6MG/2ML 1 ML ONE ×2 (18:23→18:42)
[2022-05-25] MEDS ORDERED: EPTIFIBATIDE 20 ML ONE (18:23)
[2022-05-25] MEDS ORDERED: EPTIFIBATIDE 75mg 100ML 100 ML ONE (18:24)
[2022-05-25] MEDS ORDERED: SODIUM CHLORIDE 0.9% 500ML 500 ML ONE (18:34)
[2022-05-25] MEDS ORDERED: PRASUGREL 10 MG TAB ONE (19:12)
[2022-05-25] MEDS ORDERED: ASPIRIN 325 MG TAB ONE (19:13)
[2022-05-25] MEDS ORDERED: Morphine 4mg INJECTION 4 MG/ML INJ IV PRN (19:15)
[2022-05-25] MEDS ORDERED: EPTIFIBATIDE 75mg 100ML 100 ML IV SCH (19:45)
[2022-05-25] MEDS ORDERED: ATORVASTATIN 40 MG TAB PO SCH (21:00)
[2022-05-25] MEDS: SODIUM CHLORIDE 0.9% 1000ML 1,000 ML IV SCH (22:51)
[2022-05-26] VITALS (29 sets, daily range): BP systolic 118–171; BP diastolic 61–91
[2022-05-26] MEDS ORDERED: EPTIFIBATIDE 75mg 100ML 100 ML ONE (00:47)
[2022-05-26 01:16] LABS: CREATINE KINASE MB 59.9 ng/mL (0-5.0)
[2022-05-26] MEDS ORDERED: ATROPINE SULFATE 0.1 MG/ML 10ML SYR ONE (01:17)
[2022-05-26 05:47] LABS: HEMOGLOBIN 13.5 g/dL (14.0-18.0); LYMPHOCYTES # (AUTO) 0.5 (1.0-3.2); LYMPHOCYTES % 8.4 % (18.0-39.1); MEAN CORPUSCULAR HEMOGLOBIN 33.2 pg (28-32); MEAN CORPUSCULAR HGB CONC 34.6 g/dL (31-35); MEAN CORPUSCULAR VOLUME 95.8 fL (81-99); MONOCYTES # (AUTO) 0.8 (0.2-0.8); MONOCYTES % 13.3 % (4.4-11.3); NEUTROPHILS # (AUTO) 4.4 (2.1-6.9); NEUTROPHILS % 77.9 % (38.7-80.0); PLATELET COUNT 182 x10e3/uL (140-360); RED BLOOD COUNT 4.07 x10e6/uL (4.3-5.7); RED CELL DISTRIBUTION WIDTH 14.7 % (11.7-14.4)
[2022-05-26] MEDS: INSULIN LISPRO 100 UNIT/1 ML 3ML VIAL SQ SCH ×4 (06:00→16:42)
[2022-05-26 06:19] LABS: ALBUMIN 2.9 g/dL (3.5-5.0); ALBUMIN/GLOBULIN RATIO 0.8 (0.8-2.0); ANION GAP 13.8 mmol/L (8-16); CALCIUM 8.2 mg/dL (8.4-10.2); CHOL/HDL RATIO 4.4 (3.9-4.7); CREATININE, SERUM 0.75 mg/dL (0.72-1.25); POTASSIUM 3.8 mmol/L (3.5-5.1)
[2022-05-26 06:29] LABS: CREATINE KINASE MB 67.8 ng/mL (0-5.0)
[2022-05-26] MEDS: FAMOTIDINE 20 MG TAB PO SCH ×2 (08:09→16:38)
[2022-05-26] MEDS: ASPIRIN 81 MG ENTERIC COATED PO SCH (08:09)
[2022-05-26] MEDS: LOSARTAN POTASSIUM 100 MG TAB PO SCH (08:10)
[2022-05-26] MEDS: METOPROLOL TARTRATE 50 MG TAB PO SCH ×2 (08:11→16:39)
[2022-05-26] MEDS ORDERED: LOSARTAN POTASSIUM 100 MG TAB PO SCH (09:00)
[2022-05-26] MEDS: SODIUM CHLORIDE 0.9% 1000ML 1,000 ML IV SCH ×2 (15:55→21:11)
[2022-05-26] MEDS: PRASUGREL 10 MG TAB PO SCH (16:38)
[2022-05-26] MEDS ORDERED: ATORVASTATIN 40 MG TAB PO SCH (21:00)
[2022-05-27] VITALS: BP 161/68
[2022-05-27] MEDS: INSULIN LISPRO 100 UNIT/1 ML 3ML VIAL SQ SCH ×2 (00:08→06:00)
[2022-05-27] MEDS: SODIUM CHLORIDE 0.9% 1000ML 1,000 ML IV SCH (00:09)
[2022-05-27 02:16] VITALS: BP 161/68
[2022-05-27 04:00] VITALS: BP 143/70
[2022-05-27] MEDS ORDERED: METOPROLOL TART50 MG PO (06:45)
[2022-05-27] MEDS ORDERED: EFFIENT10 MG PO (06:45)
[2022-05-27] MEDS ORDERED: ZETIA10 MG PO (06:45)
[2022-05-27] MEDS ORDERED: Atorvastatin PO (06:45)
[2022-05-27 08:00] VITALS: BP 146/64
[2022-05-27 08:20] VITALS: BP 146/69
[2022-05-27] MEDS: ASPIRIN 81 MG ENTERIC COATED PO SCH (08:21)
[2022-05-27] MEDS: FAMOTIDINE 20 MG TAB PO SCH (08:22)
[2022-05-27] MEDS: LOSARTAN POTASSIUM 100 MG TAB PO SCH (08:23)
[2022-05-27] MEDS: METOPROLOL TARTRATE 50 MG TAB PO SCH (08:23)
[2022-05-27] MEDS ORDERED: EZETIMIBE 10 MG TAB PO SCH (09:00)
[2022-05-27] MEDS: PRASUGREL 10 MG TAB PO SCH (09:39)
== END 2022-05-27 10:58 | disposition home or self-care (01) | DRG 246 ==
LOC: ER 06:43 → ERHOLD 08:58 → ICU 09:37 → MED/SURG3 05-26 22:39
PROVIDERS: ADMIT Internal Medicine; ATTEND Internal Medicine
PROC: 027034Z Dilation of Coronary Artery, One Artery with Drug-eluting Intraluminal Device, Percutaneous Approach (ICD-10-PCS; principal; 2022-05-25)
PROC: 4A023N7 Measurement of Cardiac Sampling and Pressure, Left Heart, Percutaneous Approach (ICD-10-PCS; 2022-05-25)
PROC: B2131ZZ Fluoroscopy of Multiple Coronary Artery Bypass Grafts using Low Osmolar Contrast (ICD-10-PCS; 2022-05-25)
PROC: B2181ZZ Fluoroscopy of Left Internal Mammary Bypass Graft using Low Osmolar Contrast (ICD-10-PCS; 2022-05-25)
PROC: B2111ZZ Fluoroscopy of Multiple Coronary Arteries using Low Osmolar Contrast (ICD-10-PCS; 2022-05-25)
PROC: B2151ZZ Fluoroscopy of Left Heart using Low Osmolar Contrast (ICD-10-PCS; 2022-05-25)
DX: T82.857A Stenosis of other cardiac prosthetic devices, implants and grafts, initial encounter (principal); I21.4 Non-ST elevation (NSTEMI) myocardial infarction; I25.110 Atherosclerotic heart disease of native coronary artery with unstable angina pectoris; C91.10 Chronic lymphocytic leukemia of B-cell type not having achieved remission; E11.51 Type 2 diabetes mellitus with diabetic peripheral angiopathy without gangrene; I11.0 Hypertensive heart disease with heart failure; I50.9 Heart failure, unspecified; Z89.411 Acquired absence of right great toe; H40.9 Unspecified glaucoma; E05.90 Thyrotoxicosis, unspecified without thyrotoxic crisis or storm; Z20.822 Contact with and (suspected) exposure to COVID-19
CPT/HCPCS: 33210; 36415; 70450; 71045; 80053; 80061; 82550; 82553; 82948; 83036; 83518; 83735; 83880; 84484; 85025; 85347; 85610; 85730; 87070; 92928; 92973; 93005; 93306; 93459; 94799; 96361; 99152; 99153; 99251; 99284; C1725; C1757; C1766; C1769; C1874; C1887; J0153; J1327; J1644; J2250; J3010; J7030; J7040; Q9967

== ENCOUNTER 2022-07-21 18:21 | Emergency (ER) | payer BC ==
[~2022-07-21] VITALS: Ht 188 cm; Wt 88.9 kg
[~2022-07-21 18:21] MED LIST changes: +Atorvastatin PO; +EFFIENT10 MG PO; +METOPROLOL TART50 MG PO; +ZETIA10 MG PO
[2022-07-21 19:05] LABS: BASOPHILS % 0.3 % (0.0-1.0); EOSINOPHILS # (AUTO) 0.2 (0.0-0.4); EOSINOPHILS % 2.5 % (0.0-6.0); HEMATOCRIT 39.7 % (38.2-49.6); HEMOGLOBIN 12.8 g/dL (14.0-18.0); LYMPHOCYTES # (AUTO) 0.6 (1.0-3.2); LYMPHOCYTES % 9.1 % (18.0-39.1); MEAN CORPUSCULAR HEMOGLOBIN 32.9 pg (28-32); MEAN CORPUSCULAR HGB CONC 32.2 g/dL (31-35); MEAN CORPUSCULAR VOLUME 102.1 fL (81-99); MONOCYTES # (AUTO) 1.1 (0.2-0.8); MONOCYTES % 17.4 % (4.4-11.3); NEUTROPHILS # (AUTO) 4.2 (2.1-6.9); NEUTROPHILS % 70.4 % (38.7-80.0); PLATELET COUNT 145 x10e3/uL (140-360); RED BLOOD COUNT 3.89 x10e6/uL (4.3-5.7); RED CELL DISTRIBUTION WIDTH 14.3 % (11.7-14.4)
[2022-07-21 19:25] LABS: ALBUMIN 3.3 g/dL (3.5-5.0); ALBUMIN/GLOBULIN RATIO 0.9 (0.8-2.0); ANION GAP 12.9 mmol/L (8-16); CREATININE, SERUM 0.87 mg/dL (0.72-1.25); POTASSIUM 3.9 mmol/L (3.5-5.1)
[2022-07-21 20:50] VITALS: BP 160/73
[2022-07-21] MEDS ORDERED: DOXYCYCLINE HY100 MG PO (20:50)
== END 2022-07-21 20:59 | disposition home or self-care (01) ==
LOC: ER 18:28
DX: L03.116 Cellulitis of left lower limb (principal); E11.65 Type 2 diabetes mellitus with hyperglycemia; I10 Essential (primary) hypertension; Z79.899 Other long term (current) drug therapy; I25.2 Old myocardial infarction; Z95.1 Presence of aortocoronary bypass graft; Z85.6 Personal history of leukemia
CPT/HCPCS: 36415; 80053; 85025; 93926; 93971; 99283

== ENCOUNTER 2024-04-16 10:56 | Inpatient (IN) | payer BC ==
[~2024-04-16] VITALS: Ht 188 cm; Wt 76.2 kg
[~2024-04-16 10:56] MED LIST changes: +DOXYCYCLINE HY100 MG PO; +JARDIANCE25 MG PO
[2024-04-16 11:01] VITALS: TEMP 97.5
[2024-04-16 11:34] LABS: BASOPHILS % 0.6 % (0.0-1.0); EOSINOPHILS # (AUTO) 0.1 (0.0-0.4); EOSINOPHILS % 0.7 % (0.0-6.0); HEMATOCRIT 37.8 % (38.2-49.6); HEMOGLOBIN 12.7 g/dL (14.0-18.0); LYMPHOCYTES # (AUTO) 0.6 (1.0-3.2); MEAN CORPUSCULAR HEMOGLOBIN 31.3 pg (28-32); MEAN CORPUSCULAR HGB CONC 33.6 g/dL (31-35); MEAN CORPUSCULAR VOLUME 93.1 fL (81-99); MONOCYTES # (AUTO) 0.8 (0.2-0.8); NEUTROPHILS # (AUTO) 5.4 (2.1-6.9); NEUTROPHILS % 78.3 % (38.7-80.0); PLATELET COUNT 150 x10e3/uL (140-360); RED BLOOD COUNT 4.06 x10e6/uL (4.3-5.7); RED CELL DISTRIBUTION WIDTH 16.8 % (11.7-14.4); WHITE BLOOD COUNT 6.84 x10e3/uL (4.8-10.8)
[2024-04-16 11:48] LABS: INR 1.44; PROTHROMBIN TIME 18.4 seconds (11.9-14.5)
[2024-04-16 11:49] LABS: PARTIAL THROMBOPLASTIN TIME 33.7 seconds (23.8-35.5)
[2024-04-16 12:00] LABS: ALBUMIN/GLOBULIN RATIO 0.7 (0.8-2.0); ANION GAP 13.6 mmol/L (8-16); BILIRUBIN,TOTAL 2.7 mg/dL (0.2-1.2); CALCIUM 8.1 mg/dL (8.4-10.2); CREATININE, SERUM 1.07 mg/dL (0.72-1.25); POTASSIUM 3.6 mmol/L (3.5-5.1); TOTAL PROTEIN 7.3 g/dL (6.5-8.1); TROPONIN I 0.008 ng/mL (0-0.300)
[2024-04-16] MEDS ORDERED: IOPAMIDOL 370 MG/ML 100 ML INFUS..BTL INJ ONE (12:11)
[2024-04-16] MEDS ORDERED: TORSEMIDE INJ 10 MG/ML 2 ML AMP IV ONE (12:15)
[2024-04-16] MEDS: FUROSEMIDE INJ 10 MG/ML 4 ML VIAL IV ONE (12:23)
[2024-04-16] MEDS ORDERED: DEXTROSE 50% SYRINGE 50 ML IV PRN ×2 (13:15→13:30)
[2024-04-16 13:30] VITALS: PULSE 88; RESP 20
[2024-04-16 14:22] LABS: BILIRUBIN,URINE NEGATIVE (NEGATIVE); CLARITY,URINE CLEAR (CLEAR); COLOR,URINE YELLOW (YELLOW); GLUCOSE, URINE NEGATIVE (NEGATIVE); KETONES,URINE NEGATIVE (NEGATIVE); LEUKOCYTE ESTERASE ,URINE NEGATIVE (NEGATIVE); NITRITE,URINE NEGATIVE (NEGATIVE); PH,URINE 5.5 (5 - 7); PROTEIN,URINE DIPSTICK 2+ (NEGATIVE); URINE UROBILINOGEN 0.2 mg/dL (0.2 - 1)
[2024-04-16 14:28] LABS: AMORPHOUS SEDIMENT,URINE FEW (FEW); BACTERIA,URINE FEW /HPF; MUCUS,URINE FEW (RARE)
[2024-04-16] MEDS ORDERED: INSULIN LISPRO 100 UNIT/1 ML 3ML VIAL SQ SCH (16:30)
[2024-04-16 16:44] VITALS: BP 141/93; PULSE 93; RESP 21; TEMP 97.9; O2SAT 100
[2024-04-16] MEDS ORDERED: FUROSEMIDE INJ 10 MG/ML 4 ML VIAL IV SCH (17:00)
[2024-04-16] MEDS: METOPROLOL TARTRATE 50 MG TAB PO SCH (17:53)
[2024-04-16] MEDS: INSULIN LISPRO 100 UNIT/1 ML 3ML VIAL SQ SCH (17:56)
[2024-04-16 18:04] LABS: TROPONIN I 0.009 ng/mL (0-0.300)
[2024-04-16] MEDS: ATORVASTATIN 40 MG TAB PO SCH (20:33)
[2024-04-16 20:41] VITALS: BP 106/66; PULSE 80; RESP 17; TEMP 98.4; O2SAT 100
[2024-04-16 21:00] VITALS: BP 106/66; PULSE 80; RESP 17; TEMP 98.4; O2SAT 100
[2024-04-16] MEDS: FUROSEMIDE INJ 10 MG/ML 4 ML VIAL IV SCH (22:00)
[2024-04-17] VITALS (7 sets, daily range): BP systolic 107–124; BP diastolic 70–84; PULSE 72–89; RESP 17–21; TEMP 97.6–99.1; O2SAT 97–100
[2024-04-17 01:07] LABS: TROPONIN I 0.008 ng/mL (0-0.300)
[2024-04-17 06:16] LABS: BASOPHILS % 0.5 % (0.0-1.0); EOSINOPHILS # (AUTO) 0.1 (0.0-0.4); EOSINOPHILS % 1.7 % (0.0-6.0); HEMATOCRIT 37.7 % (38.2-49.6); HEMOGLOBIN 12.5 g/dL (14.0-18.0); LYMPHOCYTES # (AUTO) 0.7 (1.0-3.2); LYMPHOCYTES % 8.6 % (18.0-39.1); MEAN CORPUSCULAR HGB CONC 33.2 g/dL (31-35); MEAN CORPUSCULAR VOLUME 93.5 fL (81-99); MONOCYTES # (AUTO) 0.9 (0.2-0.8); MONOCYTES % 11.2 % (4.4-11.3); NEUTROPHILS % 77.5 % (38.7-80.0); PLATELET COUNT 137 x10e3/uL (140-360); RED BLOOD COUNT 4.03 x10e6/uL (4.3-5.7); RED CELL DISTRIBUTION WIDTH 16.9 % (11.7-14.4); WHITE BLOOD COUNT 7.75 x10e3/uL (4.8-10.8)
[2024-04-17 06:50] LABS: ALBUMIN 2.7 g/dL (3.5-5.0); ALBUMIN/GLOBULIN RATIO 0.7 (0.8-2.0); ANION GAP 15.2 mmol/L (8-16); BILIRUBIN,TOTAL 2.6 mg/dL (0.2-1.2); CREATININE, SERUM 0.96 mg/dL (0.72-1.25); TOTAL PROTEIN 6.8 g/dL (6.5-8.1)
[2024-04-17 06:53] LABS: POTASSIUM 3.2 mmol/L (3.5-5.1)
[2024-04-17 07:03] LABS: CHOL/HDL RATIO 3.9 (3.9-4.7)
[2024-04-17 07:11] LABS: TROPONIN I 0.01 ng/mL (0-0.300)
[2024-04-17 07:24] LABS: THYROID STIMULATING HORMONE 1.01 uIU/mL (0.350-4.940)
[2024-04-17] MEDS: ASPIRIN 81 MG ENTERIC COATED PO SCH (09:21)
[2024-04-17] MEDS: PRASUGREL 10 MG TAB PO SCH (09:21)
[2024-04-17] MEDS: EZETIMIBE 10 MG TAB PO SCH (09:21)
[2024-04-17] MEDS: POTASSIUM CHLORIDE 10MEQ EA PO ONE (16:52)
[2024-04-17] MEDS: ENOXAPARIN SOD INJ 40 MG/0.4 ML SYR SC SCH (16:53)
[2024-04-17] MEDS: CARVEDILOL 3.125 MG TAB PO SCH (16:53)
[2024-04-17] MEDS: LOSARTAN POTASSIUM 25 MG TAB PO SCH (16:53)
[2024-04-18] VITALS (8 sets, daily range): BP systolic 98–124; BP diastolic 61–80; PULSE 70–85; RESP 18–20; TEMP 97.6–98.9; O2SAT 94–100
[2024-04-18 06:17] LABS: ANION GAP 14.5 mmol/L (8-16); CALCIUM 8.1 mg/dL (8.4-10.2); CREATININE, SERUM 0.87 mg/dL (0.72-1.25); POTASSIUM 3.5 mmol/L (3.5-5.1)
[2024-04-18] MEDS: SPIRONOLACTONE 25 MG TAB PO SCH (10:04)
[2024-04-18] MEDS: LOSARTAN POTASSIUM 25 MG TAB PO SCH (17:05)
[2024-04-18] MEDS: CARVEDILOL 3.125 MG TAB PO SCH (17:05)
[2024-04-19] VITALS: BP 101/54; PULSE 76; RESP 19; TEMP 98.8; O2SAT 100
[2024-04-19 04:00] VITALS: BP 111/57; PULSE 71; RESP 20; TEMP 98.9; O2SAT 95
[2024-04-19 05:15] LABS: BASOPHILS % 0.5 % (0.0-1.0); EOSINOPHILS # (AUTO) 0.2 (0.0-0.4); EOSINOPHILS % 3.8 % (0.0-6.0); HEMATOCRIT 36.7 % (38.2-49.6); HEMOGLOBIN 12.4 g/dL (14.0-18.0); LYMPHOCYTES # (AUTO) 0.5 (1.0-3.2); LYMPHOCYTES % 8.3 % (18.0-39.1); MEAN CORPUSCULAR HEMOGLOBIN 30.9 pg (28-32); MEAN CORPUSCULAR HGB CONC 33.8 g/dL (31-35); MEAN CORPUSCULAR VOLUME 91.5 fL (81-99); MONOCYTES # (AUTO) 0.7 (0.2-0.8); MONOCYTES % 12.1 % (4.4-11.3); NEUTROPHILS # (AUTO) 4.5 (2.1-6.9); PLATELET COUNT 156 x10e3/uL (140-360); RED BLOOD COUNT 4.01 x10e6/uL (4.3-5.7); RED CELL DISTRIBUTION WIDTH 16.5 % (11.7-14.4); WHITE BLOOD COUNT 6.02 x10e3/uL (4.8-10.8)
[2024-04-19 05:35] LABS: ANION GAP 14.1 mmol/L (8-16); CALCIUM 7.8 mg/dL (8.4-10.2); CREATININE, SERUM 0.86 mg/dL (0.72-1.25)
[2024-04-19 05:44] LABS: POTASSIUM 3.1 mmol/L (3.5-5.1)
[2024-04-19 07:55] VITALS: BP 113/69; PULSE 78; RESP 19; TEMP 98.5; O2SAT 93
[2024-04-19 08:09] VITALS: BP 113/69; PULSE 78; RESP 19; TEMP 98.5; O2SAT 93
[2024-04-19] MEDS ORDERED: POTASSIUM CHLORIDE 10MEQ EA PO ONE (11:25)
[2024-04-19 11:30] VITALS: BP 98/61; PULSE 66; RESP 18; TEMP 97.9; O2SAT 95
[2024-04-19] MEDS ORDERED: COREG3.125 MG PO (12:00)
[2024-04-19] MEDS ORDERED: ALDACTONE25 MG PO (12:00)
[2024-04-19] MEDS ORDERED: LASIX40 MG PO (12:00)
[2024-04-19] MEDS ORDERED: FUROSEMIDE 40 MG TAB PO SCH (21:00)
== END 2024-04-19 13:31 | disposition home or self-care (01) | DRG 291 ==
LOC: ER 11:01 → ERHOLD 13:38 → MED/SURG3 15:00
PROVIDERS: ADMIT Internal Medicine; ATTEND Internal Medicine
DX: I11.0 Hypertensive heart disease with heart failure (principal); I50.21 Acute systolic (congestive) heart failure; R18.8 Other ascites; E11.51 Type 2 diabetes mellitus with diabetic peripheral angiopathy without gangrene; I25.10 Atherosclerotic heart disease of native coronary artery without angina pectoris; E78.00 Pure hypercholesterolemia, unspecified; Z79.4 Long term (current) use of insulin; R53.81 Other malaise; T50.1X6A Underdosing of loop [high-ceiling] diuretics, initial encounter; Z91.128 Patient's intentional underdosing of medication regimen for other reason; Z79.84 Long term (current) use of oral hypoglycemic drugs; Z79.82 Long term (current) use of aspirin; Z89.421 Acquired absence of other right toe(s); Z95.1 Presence of aortocoronary bypass graft; Z95.5 Presence of coronary angioplasty implant and graft; Z95.810 Presence of automatic (implantable) cardiac defibrillator; Z88.1 Allergy status to other antibiotic agents; Z88.2 Allergy status to sulfonamides; Z82.49 Family history of ischemic heart disease and other diseases of the circulatory system
CPT/HCPCS: 36415; 71045; 74177; 80048; 80053; 80061; 81001; 82550; 82948; 83036; 83735; 83880; 84443; 84484; 85025; 85610; 85730; 87400; 93005; 93306; 94760; 94799; 99284; J1650; J1940; J3265; Q9967; U0002